=== PATIENT | female | born 1955 | race Caucasian/White ===

== ENCOUNTER 2017-10-12 14:09 | Inpatient (IN) ==
--- NOTE | 2017-10-12 17:23 | Emergency Department Note ---
Disposition Clinical Impression: Chest pain Qualifiers: Chest pain type: unspecified Qualified Code(s): R07.9 - Chest pain, unspecified Disposition: Admitted As Inpatient Condition: Good Referrals: Livia Hale CNP [Primary Care Provider] - Forms: ED Satisfaction Letter Time of Disposition: 18:16 Chest Pain HPI - General Chief Complaint: ED Chest Pain Stated Complaint: chest pain Time Seen by Provider: 10/12/17 17:08 Source: patient Mode of arrival: ambulatory Limitations: no limitations Vital Signs Reviewed: Yes Nursing Notes Reviewed: Yes - History of Present Illness HPI Narrative: 62-year-old with a previous MA 15 years ago or so comes in complaining of some intermittent chest pain. Patient hasn't been evaluated for heart for quite some time. She does have a stent that was placed 15 years ago. Pt complaint: chest pain Onset (ago): day(s) Duration: intermittent Onset: during rest Pain Location: substernal, left chest Severity: moderate Severity scale (1-10): 7 Quality: tightness, aching Pain Radiation: RUE, LUE Improves with: nothing Worsens with: nothing Context: recent illness Associated symptoms: Reports: dyspnea Treatments prior to arrival chest pain: none - Related Data Previous Rx's Medication Instructions Recorded HydrOXYzine 50 mg PO HS #15 tablet 11/16/15 Meclizine [Antivert] 25 mg PO DAILY #15 tablet 11/16/15 Allergies Allergy/AdvReac Type Severity Reaction Status Date / Time morphine Allergy Anaphylaxis Verified 10/12/17 14:36 All systems ED: reviewed and negative except as stated. Constitutional: Denies: fever, chills, weakness, weight change Eyes: Denies: eye pain, eye discharge, vision change ENT ED: Denies: ear pain, throat pain, dental pain, hearing loss, epistaxis, congestion, dysphagia Cardiovascular: Reports: chest pain. Denies: palpitations, dyspnea on exertion , edema, syncope Respiratory: Denies: cough, dyspnea, wheezes, hemoptysis, stridor Gastrointestinal: Denies: abdominal pain, nausea, vomiting, diarrhea, constipation, hematemesis, melena, hematochezia Genitourinary: Denies: dysuria, frequency, hematuria, discharge Musculoskeletal: Denies: back pain, neck pain, arthralgia, myalgia Integumentary: Denies: rash, abrasion, lesions Neurological: Denies: headache, weakness, numbness, paresthesias, confusion, abnormal gait, vertigo Psychiatric: Denies: anxiety, depression, suicidal thoughts, homicidal thoughts , auditory hallucinations, visual hallucinations Endocrine: Denies: fatigue Hematological/Lymphatic: Denies: easy bleeding, easy bruising Allergic/Immunologic: Denies: facial swelling, urticaria Chest Pain PMH - Past Medical History Medical history: Reports: CHF, coronary artery disease, dialysis, myocardial infarction, thyroid disease Psychiatric history: Reports: anxiety BIT TAPPER history: Reports: no BIT TAPPER history - Social History Smoking Status: Never smoker Alcohol use: Reports: none Drug use: Reports: none Physical Exam - General Limitations: no limitations General appearance: alert, in no apparent distress - Head Head exam: atraumatic - Eye Eye exam: Present: normal appearance - ENT ENT exam: normal exam, normal oropharynx, mucous membranes moist - Neck Neck exam: Present: normal inspection, full ROM, trachea midline - Chest Chest inspection: Present: normal inspection, symmetric chest wall rise - Respiratory Respiratory exam: Present: normal lung sounds bilaterally - Cardiovascular Cardiovascular exam: Present: regular rate, normal rhythm, normal heart sounds - Abdominal Exam Abdominal exam: Present: soft, Non-Tender. Absent: tenderness, distention, guarding, rebound, rigidity - Extremities Exam Extremities exam: Present: normal inspection, full ROM. Absent: tenderness, pedal edema - Expanded Lower Extremity Exam Neurovascular/Tendon exam: Absent: motor deficit, sensory deficit, tendon deficit Gait: observed and normal - Back Exam Back exam: Present: normal inspection, full ROM. Absent: tenderness - Neurological Exam Neurological exam: Present: alert, oriented X3 - Psychiatric Psychiatric exam: Present: normal affect, normal mood - Skin Skin exam: Present: warm, dry, intact, normal color Course - Reevaluation(s) Reevaluation #1: 62-year-old comes in with chest pain and has previous stent about 15 years ago. Initial EKG shows nothing acute however her troponin was positive at 0.07. A consultation with cardiology who recommended heparin if no contraindications. Time: 18:50 - Consultations Consultation #1: Discussed with Dr. Multani, opal. Time: 19:07 Vital Signs Temperature 97.9 F 10/12/17 14:36 Pulse Rate 97 10/12/17 14:36 Respiratory Rate 16 10/12/17 14:36 Blood Pressure 132/84 10/12/17 14:36 O2 Sat by Pulse Oximetry 96 10/12/17 14:36 Temperature 97.9 F 10/12/17 14:36 Pulse Rate 83 10/12/17 18:21 Respiratory Rate 16 10/12/17 18:21 Blood Pressure 131/73 10/12/17 18:21 O2 Sat by Pulse Oximetry 97 10/12/17 18:21 Oxygen Delivery Oxygen Delivery Room Air Chest Pain - Lab Data Lab results reviewed: Yes I reviewed the patient's lab results. Result diagrams: 10/12/17 17:17 10/12/17 17:17 Lab Results 10/12/17 10/12/17 10/12/17 Range/Units 17:17 17:17 17:17 WBC 8.1 (4.3-11.1) K/mcL RBC 4.61 (3.82-4.97) M/mcL Hgb 14.1 (11.5-15.4) g/dL Hct 42.4 (35.3-44.9) % MCV 92.0 (83.0-100.0) fL MCH 30.6 (28.0-33.3) pg MCHC 33.3 (31.6-35.5) g/dL RDW 12.7 (11.5-14.5) % Plt Count 228 (140-400) K/mcL MPV 10.4 (9.4-12.4) fL Immature Gran % 0.2 (0-4) % Seg Neutrophils % 61.4 % Lymphocytes % 29.9 % Monocytes % 6.4 % Eosinophils % 1.7 % Basophils % 0.4 % Neutrophils # 5.0 (1.6-8.9) K/mcL Lymphocytes # 2.4 (0.6-4.6) K/mcL Monocytes # 0.5 (0.0-1.3) K/mcL Eosinophils # 0.1 (0.0-0.6) K/mcL Basophils # 0.0 (0.0-0.2) K/mcL PT 11.2 (9.4-12.1) Seconds INR 1.0 APTT 29.1 (26.0-36.0) Seconds Sodium 134 L (136-145) mEq/L Potassium 3.9 (3.5-5.1) mEq/L Chloride 102 (98-107) mEq/L Carbon Dioxide 27 (23-29) mEq/L BUN 11 (8-23) mg/dL Creatinine 0.68 (0.60-1.20) mg/dL Est GFR ( Amer) > 60 (> 60) Est GFR (Non-Af Amer) > 60 (> 60) BUN/Creatinine Ratio 16 (6-26) Glucose 287 H (70-105) mg/dL Calculated Osmolality 288 (280-300) Calcium 9.3 (8.6-10.3) mg/dL Troponin I (< 0.04) ng/mL B-Natriuretic Peptide (Less than 100) pg/mL 10/12/17 10/12/17 Range/Units 17:17 17:17 WBC (4.3-11.1) K/mcL RBC (3.82-4.97) M/mcL Hgb (11.5-15.4) g/dL Hct (35.3-44.9) % MCV (83.0-100.0) fL MCH (28.0-33.3) pg MCHC (31.6-35.5) g/dL RDW (11.5-14.5) % Plt Count (140-400) K/mcL MPV (9.4-12.4) fL Immature Gran % (0-4) % Seg Neutrophils % % Lymphocytes % % Monocytes % % Eosinophils % % Basophils % % Neutrophils # (1.6-8.9) K/mcL Lymphocytes # (0.6-4.6) K/mcL Monocytes # (0.0-1.3) K/mcL Eosinophils # (0.0-0.6) K/mcL Basophils # (0.0-0.2) K/mcL PT (9.4-12.1) Seconds INR APTT (26.0-36.0) Seconds Sodium (136-145) mEq/L Potassium (3.5-5.1) mEq/L Chloride (98-107) mEq/L Carbon Dioxide (23-29) mEq/L BUN (8-23) mg/dL Creatinine (0.60-1.20) mg/dL Est GFR ( Amer) (> 60) Est GFR (Non-Af Amer) (> 60) BUN/Creatinine Ratio (6-26) Glucose (70-105) mg/dL Calculated Osmolality (280-300) Calcium (8.6-10.3) mg/dL Troponin I 0.07 H* (< 0.04) ng/mL B-Natriuretic Peptide 77 (Less than 100) pg/mL - Radiology Data Radiology results reviewed: Yes I reviewed the patient's radiology results. Chest X-Ray 10/12/17 15:01 IMPRESSION: No evidence of acute cardiopulmonary disease. Mild elevation of the right diaphragm most likely chronic, of uncertain etiology. D/ / Wilmar Roper MD / Wilmar Roper MD Interpreting Provider: Wilmar Roper MD - EKG Data EKG attestation: Yes I reviewed and interpreted this EKG. EKG shows normal: sinus rhythm Rate: normal Rhythm: NSR Interpretation: no acute changes Heart Score - Score History: Moderately Suspicious EKG: Non Specific repolarisation Disturbance Age: 45-65 Risk Factors: Equal/Greater than 3 risk factor or history of atherosclerotic disease Troponin: 1-3x normal limit HEART Score Total: 6
[2017-10-12 17:27] LABS: Basophils % 0.4 %; Eosinophils # 0.1 K/mcL (0.0-0.6); Eosinophils % 1.7 %; Hematocrit 42.4 % (35.3-44.9); Hemoglobin 14.1 g/dL (11.5-15.4); Immature Granulocytes % 0.2 % (0-4); Lymphocytes # 2.4 K/mcL (0.6-4.6); Lymphocytes % 29.9 %; Mean Corpuscular HGB Conc 33.3 g/dL (31.6-35.5); Mean Corpuscular Hemoglobin 30.6 pg (28.0-33.3); Mean Platelet Volume 10.4 fL (9.4-12.4); Monocytes # 0.5 K/mcL (0.0-1.3); Monocytes % 6.4 %; Platelet Count 228 K/mcL (140-400); Red Blood Count 4.61 M/mcL (3.82-4.97); Red Cell Distribution Width 12.7 % (11.5-14.5); Segmented Neutrophils % 61.4 %
[2017-10-12 17:41] LABS: Prothrombin Time 11.2 Seconds (9.4-12.1)
[2017-10-12 17:43] LABS: Activated Partial Thrombo Time 29.1 Seconds (26.0-36.0)
[2017-10-12 17:44] LABS: BUN/Creatinine Ratio 16 (6-26); Blood Urea Nitrogen 11 mg/dL (8-23); Calcium 9.3 mg/dL (8.6-10.3); Carbon Dioxide 27 mEq/L (23-29); Chloride 102 mEq/L (98-107); Glucose 287 mg/dL (70-105); Osmolality,Calculated 288 (280-300); Potassium 3.9 mEq/L (3.5-5.1); Sodium 134 mEq/L (136-145); eGFR For African Americans > 60 (> 60); eGFR For Non-African Americans > 60 (> 60)
[2017-10-12] MEDS ORDERED: *HR* Meperidine 25 MG/ML SYRINGE IVP ONE (18:12)
[2017-10-12] MEDS ORDERED: Ondansetron 4 MG/2 ML VIAL IVP ONE (18:14)
[2017-10-12] MEDS ORDERED: *HR* Heparin 5,000 UNIT/ML VIAL IVP PRN (19:06)
[2017-10-12] MEDS ORDERED: *HR* Heparin 5,000 UNIT/ML VIAL IVP ONE ×2 (19:06→19:15)
[2017-10-12] MEDS: Heparin 25,000 UNIT/500 ML D5W 25,000 UNIT/500 ML BAG IVC SCH (19:31)
[2017-10-12] MEDS ORDERED: *HR* Dextrose 50 % in Water (Syg) 50 ML SYRINGE IVP PRN (20:02)
[2017-10-12] MEDS ORDERED: D5% in Water 1,000 ML IVC PRN (20:02)
[2017-10-12] MEDS ORDERED: Dextrose Gel 15 GM/37.5 ML TUBE PO PRN ×2 (20:02)
[2017-10-12] MEDS ORDERED: Naloxone 0.4 MG/ML INJ IVP PRN (20:03)
--- NOTE | 2017-10-12 20:10 | Internal Med History&Physical ---
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 Gonzalez is a 62 year old female who presents with NSTEMI. She has a hx CAD s/p stent either and is loss to follow up with Dr Santa. She experienced CP in the last few days with progressive discomfort today. On and off, pain across the chest, radiating down both arms into the back. Described as burning, stinging in quality. No exacerbation with exertion. Pain lasting for hours. EKG personally reviewed with rate 98, NSR ST-T wave changes XR/XR chest 1V portable IMPRESSION: No evidence of acute cardiopulmonary disease. Mild elevation of the right diaphragm most likely chronic, of uncertain etiology. Past Med Surg Social Fam HX - Past Medical History Medical history: CHF, coronary artery disease, dialysis, myocardial infarction, thyroid disease Psychiatric history: anxiety - Past Surgical History Surgical History: other (stent pci) - Social History Smoking Status: Never smoker Smokeless Tobacco Status: No Alcohol use: none Drug use: none - Additional Family History Additional family history: HTN Internal Medicine - H&P: Meds Aspirin Enteric Coated [Aspirin EC] 81 mg PO DAILY 10/12/17 [History] Dulaglutide [Trulicity] 0.75 mg SQ TU@1200 10/12/17 [History] Escitalopram [Lexapro] 20 mg PO DAILY 10/12/17 [History] Glimepiride [Amaryl] 4 mg PO BID 10/12/17 [History] Insulin Glargine,Hum.rec.anlog [Basaglar Oliikpen U-100] 28 unit SQ 1200 [History] Levothyroxine [Synthroid] 25 mcg PO 0630 10/12/17 [History] Pantoprazole Sodium [Protonix] 40 mg PO DAILY PRN 10/12/17 [History] Simvastatin [Zocor] 10 mg PO HS 10/12/17 [History] clonazePAM [Klonopin] 1 mg PO BID 10/12/17 [History] 3 Allergy/AdvReac Type Severity Reaction Status Date / Time morphine Allergy Anaphylaxis Verified 10/12/17 14:36 All Systems PM: A 10-system review of systems was performed and is negative for pertinent findings except as documented above in the HPI. Review of systems: ROS 14 point review of systems reviewed as best as possible given presentation. Pertinent positive or negative as per HPI or otherwise reviewed as negative - Constitutional Vitals: Temp Pulse Resp BP Pulse Ox 97.9 F 83 16 131/73 97 10/12/17 14:36 10/12/17 18:21 10/12/17 18:21 10/12/17 18:21 10/12/17 18:21 Exam: General - AAO x 3 Psych - Appropriate affect/speech. No agitation Eyes - HARINI. Eye lids intact. No scleral icterus Heart - Sinus. RRR. S1 and S2 present. No added HS/murmurs appreciated. No elevated JVD appreciated. Lung - Adequate air entry b/l, No crackles/wheezes appreciated GI - Soft, non-tender. No hepatosplenomegaly/ascites. BS+ - No CVA/suprapubic tenderness or palpable bladder distension Skin - Intact. No rash/petechiae/ecchymosis. Warm extremities MSK - Joints with normal ROM. No joint swellings Internal Med - H&P Results - Labs CBC & Chem 7: 10/12/17 17:17 10/12/17 17:17
[2017-10-12 20:32] LABS: Hematocrit 41.1 % (35.3-44.9); Hemoglobin 13.6 g/dL (11.5-15.4); Mean Corpuscular HGB Conc 33.1 g/dL (31.6-35.5); Mean Corpuscular Hemoglobin 30.6 pg (28.0-33.3); Mean Corpuscular Volume 92.4 fL (83.0-100.0); Platelet Count 251 K/mcL (140-400); Red Blood Count 4.45 M/mcL (3.82-4.97); Red Cell Distribution Width 12.6 % (11.5-14.5)
[2017-10-12 20:39] LABS: INR 1.1; Prothrombin Time 12.4 Seconds (9.4-12.1)
[2017-10-12 20:59] LABS: Activated Partial Thrombo Time > 360.0 Seconds (26.0-36.0)
[2017-10-12 21:10] LABS: Heparin anti-factor XA UFH 1.16 IU/mL (0.30-0.70)
[2017-10-12] MEDS: Insulin LISPRO 300 UNITS/3 ML VIAL SQ SCH (22:48)
[2017-10-12] MEDS: clonazePAM 1 MG TABLET PO SCH (22:48)
[2017-10-13] MEDS ORDERED: Melatonin 3 MG TABLET PO PRN (01:58)
[2017-10-13 02:12] LABS: Basophils # 0.1 K/mcL (0.0-0.2); Basophils % 0.7 %; Eosinophils # 0.2 K/mcL (0.0-0.6); Eosinophils % 2.4 %; Hematocrit 41.9 % (35.3-44.9); Hemoglobin 13.7 g/dL (11.5-15.4); Immature Granulocytes % 0.3 % (0-4); Lymphocytes # 3.3 K/mcL (0.6-4.6); Lymphocytes % 43.7 %; Mean Corpuscular HGB Conc 32.7 g/dL (31.6-35.5); Mean Corpuscular Volume 91.9 fL (83.0-100.0); Mean Platelet Volume 10.4 fL (9.4-12.4); Monocytes # 0.5 K/mcL (0.0-1.3); Monocytes % 7.2 %; Neutrophils # 3.5 K/mcL (1.6-8.9); Platelet Count 238 K/mcL (140-400); Red Blood Count 4.56 M/mcL (3.82-4.97); Red Cell Distribution Width 12.7 % (11.5-14.5); Segmented Neutrophils % 45.7 %
[2017-10-13 02:27] LABS: BUN/Creatinine Ratio 16 (6-26); Blood Urea Nitrogen 13 mg/dL (8-23); Calcium 9.3 mg/dL (8.6-10.3); Carbon Dioxide 29 mEq/L (23-29); Chloride 102 mEq/L (98-107); Glucose 208 mg/dL (70-105); Osmolality,Calculated 292 (280-300); Potassium 3.8 mEq/L (3.5-5.1); Sodium 138 mEq/L (136-145); eGFR For African Americans > 60 (> 60); eGFR For Non-African Americans > 60 (> 60)
[2017-10-13] MEDS: *HR* Heparin 5,000 UNIT/ML VIAL IVP PRN ×3 (04:20→18:05)
[2017-10-13] MEDS: Insulin LISPRO 300 UNITS/3 ML VIAL SQ SCH ×4 (08:50→21:29)
[2017-10-13] MEDS: Levothyroxine 25 MCG TABLET PO SCH (09:22)
[2017-10-13] MEDS: Aspirin Enteric Coated 81 MG Tablet PO SCH (09:22)
[2017-10-13] MEDS: clonazePAM 1 MG TABLET PO SCH ×2 (09:22→20:20)
--- NOTE | 2017-10-13 11:36 | Cardiology Consult Note ---
Date of Encounter: 10/13/17 Time of Encounter: 09:00 Assessment and Plan (1) NSTEMI (non-ST elevated myocardial infarction) Current Visit: Yes Status: Acute Mild troponin elevation 0.07, 0.07, 0.06. EKG with mild ST depression in the inferior leads. Symptoms and findings concerning for [place]/ NSTEMI. LHC R/B/A discussed. She agrees to proceed. Plan for C sunday. Check TTE. Cardiac rehab consult. Continue heparin gtt. ASA and bb. No statin due to myalgias. (2) CAD (coronary artery disease) Current Visit: Yes Status: Chronic H/o PCI in 2002. Reports undergoing multiple LHC since that time. Last LHC in 2010 showed minimal CAD with patent pRCA stent. EF 65%. Continue asa and bb. Not on statin therapy at home due to myalgias. Qualifiers: Coronary Disease-Associated Artery/Lesion type: [place] artery [place] vs. 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 All questions were answered. Thank you for involving us in the care of your patient. Please call with any questions. History of Present Illness Consult date: 10/13/17 Requesting physician: Holly Vallejo Consult reason: Chest pain Chief complaint: Chest pain History of present illness: Ms. Gonzalez is a 62 year old female with a past medical history of CAD s/p PCI in 2002, DM type II, and HLD who presents with chest pain radiating across her chest. Her pain started three days ago. She was given NTG in the ER with relief of her pain. Denies associated symptoms. She is found to have mildly elevated troponin, 0.07, 0.07, 0.06. Her EKG showed mild ST depression in the inferior leads. Cardiology was consulted for NSTEMI. She is chest pain free on my exam. Reports she is experiencing higher levels of stress at home. Past Med Surg Social Fam HX - Past Medical History Attestation: Yes The following information was validated with the patient. Medical history: CHF, coronary artery disease, diabetes, myocardial infarction, thyroid disease Psychiatric history: anxiety - Past Surgical History Surgical History: cholecystectomy, hysterectomy, thyroidectomy, other - Social History Smoking Status: Never smoker Smokeless Tobacco Status: No Alcohol use: none Drug use: none - Family History Mother Hx Family Cardiac Disorders: Yes Father Hx Family Cancer: Yes Hx Family Endocrine Disorder: Yes Medications and Allergies Aspirin Enteric Coated [Aspirin EC] 81 mg PO DAILY 10/12/17 [History] Dulaglutide [Trulicity] 0.75 mg SQ TU@1200 10/12/17 [History] Escitalopram [Lexapro] 20 mg PO DAILY 10/12/17 [History] Glimepiride [Amaryl] 4 mg PO BID 10/12/17 [History] Insulin Glargine,Hum.rec.anlog [Basaglar Kwikpen U-100] 28 unit SQ 1200 [History] Levothyroxine [Synthroid] 25 mcg PO 0630 10/12/17 [History] Pantoprazole Sodium [Protonix] 40 mg PO DAILY PRN 10/12/17 [History] Simvastatin [Zocor] 10 mg PO HS 10/12/17 [History] clonazePAM [Klonopin] 1 mg PO BID 10/12/17 [History] 3 Allergy/AdvReac Type Severity Reaction Status Date / Time morphine Allergy Anaphylaxis Verified 10/12/17 14:36 All Systems Review: A 10-system review of systems was performed and is negative for pertinent findings except as documented above in the HPI. Physical Examination Vital Signs, Last 4 Hours Pulse Ox 10/13/17 08:31 96 General: Conversant, No Apparent Distress HEENT: Atraumatic, Normocephaly, Mucus Membranes Moist Neck: No JVD, Normal carotid pulses Cardiac: Reg Rate and Rhythm, Normal S1 and S2, No Murmur Lungs: Normal Breath Sounds, No Wheeze, Rales, Rhonchi Neuro: Alert and responsive, No focal deficits noted Abdomen: Soft, Non-Tender Skin: No rashes noted on visualized skin Musculoskeletal: No Chest Wall Tenderness Extremities: No Clubbing, No Cyanosis, No Edema, Normal Pulses Results 10/13/17 01:22 10/13/17 01:22 Lab Results 10/12/17 10/12/17 10/12/17 20:20 20:20 22:00 WBC 8.4 Hgb 13.6 Hct 41.1 Plt Count 251 INR 1.1 APTT > 360.0 H* D Sodium Potassium Chloride Carbon Dioxide BUN Creatinine Glucose Calcium Troponin I 0.07 H* 10/13/17 10/13/17 10/13/17 01:22 01:22 01:22 WBC 7.5 Hgb 13.7 Hct 41.9 Plt Count 238 INR APTT Sodium 138 Potassium 3.8 Chloride 102 Carbon Dioxide 29 BUN 13 Creatinine 0.82 Glucose 208 H Calcium 9.3 Troponin I 0.06 H* 10/13/17 10/13/17 01:22 07:46 WBC Hgb Hct Plt Count INR APTT 46.3 H D 56.0 H Sodium Potassium Chloride Carbon Dioxide BUN Creatinine Glucose Calcium Troponin I - EKG Interpretation EKG results cardiology: personally reviewed Consult Discharge Plan - Plan Referrals: Livia Hale, VINCE [Primary Care Provider] -
[2017-10-13] MEDS: Insulin DETEMIR 100 UNIT/ML X5UNITS SQ SCH (13:40)
[2017-10-13] MEDS: Acetaminophen 325 MG TABLET PO PRN (14:56)
--- NOTE | 2017-10-13 15:53 | Internal Med Progress Note ---
Date of Encounter: 10/13/17 Time of Encounter: 15:51 - Assessment and plan (1) Chest pain Current Visit: Yes Status: Acute Qualifiers: Chest pain type: unspecified Qualified Code(s): R07.9 - Chest pain, unspecified (2) HLD (hyperlipidemia) Current Visit: Yes Status: Acute Assessment and plan: Intolerant of statins Qualifiers: Hyperlipidemia type: pure hypercholesterolemia Qualified Code(s): E78.00 - Pure hypercholesterolemia, unspecified; E78.0 - Pure hypercholesterolemia (3) NSTEMI (non-ST elevated myocardial infarction) Current Visit: Yes Status: Acute Assessment and plan: Mild troponin elevation 0.07, 0.07, 0.06. EKG with mild ST depression in the inferior leads. Symptoms and findings concerning for unstable angina/ NSTEMI. Cardiology discussed the need for a heart catheter on Sunday. She agrees to proceed. Check TTE. Cardiac rehab consult. Continue heparin gtt. ASA and bb. No statin due to myalgias. (4) CAD (coronary artery disease) Current Visit: Yes Status: Chronic Assessment and plan: History of PCI in 2002. Reported undergoing multiple LHC since that time. Last LHC in 2010 showed minimal CAD with patent pRCA stent. EF 65%. Continue asa and bb. Not on statin therapy at home due to myalgias. Qualifiers: Coronary Disease-Associated Artery/Lesion type: [place] artery [place] vs. 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 Her is at the bedside. She is having no further chest pain and feels back to her baseline. No shortness of breath, abdominal pain, fever, chills, sweats, nausea, vomiting, headache, or syncope. She was questioning if she could go home and I explained to her that that is not advisable. She will stay and have an echocardiogram and her cardiac catheter on Sunday. - Constitutional Vitals: Temp Pulse Resp BP Pulse Ox 98.4 F 98 16 121/83 95 10/13/17 15:22 10/13/17 15:22 10/13/17 15:22 10/13/17 15:22 10/13/17 15:22 General appearance: Present: cooperative, A&O X 3, pleasant, no acute distress, answers questions appropriately - Head Head exam: Present: atraumatic, normocephalic - Eye Eye exam: Present: PERRL, conjuntiva pink, sclera anicteric Pupils: Present: PERRL - Neck Neck exam general surgery: Present: supple, trachea midline. Absent: lymphadenopathy - Respiratory Respiratory exam: Present: CTAB. Absent: accessory muscle use, rales, rhonchi, wheezes - Cardiovascular Cardiovascular exam: Present: RRR, +S1, +S2. Absent: diastolic murmur, gallop, rubs, systolic murmur - GI/Abdominal GI/Abdominal exam: Present: normal bowel sounds, soft, no peritoneal signs. Absent: distended, tenderness - Extremities Exam Extremities exam: Present: warm, radial pulses palpable and symmetrical. Absent : calf tenderness, cyanotic, pedal edema - Neurological Exam Neurological exam: Present: CN II-XII intact, oriented X3, no focal deficits. Absent: pronater drift, facial droop, speech deficit - Skin Skin exam: Present: dry, intact, warm Internal Medicine: Result - Labs CBC & Chem 7: 10/13/17 01:22 10/13/17 01:22 - ABG Interpretation ABG results: PT/INR, D-dimer PT 12.4 Seconds (9.4-12.1) H 10/12/17 20:20 Consult Discharge Plan - Plan Referrals: Livia Hale, [facility]PRENT[facility] [Primary Care Provider] -
[2017-10-13] MEDS ORDERED: *HR* Meperidine 25 MG/ML SYRINGE IVP ONE (19:59)
[2017-10-13] MEDS: Heparin 25,000 UNIT/500 ML D5W 25,000 UNIT/500 ML BAG IVC SCH (21:35)
[2017-10-14 00:49] LABS: Basophils # 0.1 K/mcL (0.0-0.2); Basophils % 0.7 %; Eosinophils # 0.2 K/mcL (0.0-0.6); Eosinophils % 2.8 %; Hematocrit 39.9 % (35.3-44.9); Immature Granulocytes % 0.1 % (0-4); Lymphocytes # 3.6 K/mcL (0.6-4.6); Lymphocytes % 48.3 %; Mean Corpuscular HGB Conc 32.6 g/dL (31.6-35.5); Mean Corpuscular Hemoglobin 30.2 pg (28.0-33.3); Mean Corpuscular Volume 92.6 fL (83.0-100.0); Mean Platelet Volume 10.3 fL (9.4-12.4); Monocytes # 0.5 K/mcL (0.0-1.3); Monocytes % 6.1 %; Neutrophils # 3.2 K/mcL (1.6-8.9); Platelet Count 219 K/mcL (140-400); Red Blood Count 4.31 M/mcL (3.82-4.97); Red Cell Distribution Width 12.4 % (11.5-14.5)
[2017-10-14 01:10] LABS: BUN/Creatinine Ratio 16 (6-26); Blood Urea Nitrogen 14 mg/dL (8-23); Calcium 9.1 mg/dL (8.6-10.3); Carbon Dioxide 28 mEq/L (23-29); Chloride 100 mEq/L (98-107); Glucose 212 mg/dL (70-105); Osmolality,Calculated 283 (280-300); Potassium 3.7 mEq/L (3.5-5.1); Sodium 133 mEq/L (136-145); eGFR For African Americans > 60 (> 60); eGFR For Non-African Americans > 60 (> 60)
[2017-10-14] MEDS: Levothyroxine 25 MCG TABLET PO SCH (05:35)
[2017-10-14] MEDS: clonazePAM 1 MG TABLET PO SCH ×2 (08:56→21:48)
[2017-10-14] MEDS: Aspirin Enteric Coated 81 MG Tablet PO SCH (08:56)
[2017-10-14] MEDS: *HR* Heparin 5,000 UNIT/ML VIAL IVP PRN ×2 (09:03→21:48)
[2017-10-14] MEDS: Insulin LISPRO 300 UNITS/3 ML VIAL SQ SCH ×4 (09:04→21:49)
--- NOTE | 2017-10-14 09:34 | Internal Med Progress Note ---
Date of Encounter: 10/14/17 Time of Encounter: 09:32 - Assessment and plan (1) NSTEMI (non-ST elevated myocardial infarction) Current Visit: Yes Status: Acute Assessment and plan: Mild troponin elevation 0.07, 0.07, 0.06. EKG with mild ST depression in the inferior leads Symptoms and findings concerning for unstable angina/ NSTEMI. Cardiology discussed the need for a heart catheter on Sunday. She agrees to proceed. Check TTE. Cardiac rehab consult. Continue heparin gtt. ASA and bb. No statin due to myalgias. (2) Chest pain Current Visit: Yes Status: Acute Assessment and plan: No further chest pain see plan per cardiology Qualifiers: Chest pain type: unspecified Qualified Code(s): R07.9 - Chest pain, unspecified (3) HLD (hyperlipidemia) Current Visit: Yes Status: Acute Assessment and plan: Intolerant of statin therapy Qualifiers: Hyperlipidemia type: pure hypercholesterolemia Qualified Code(s): E78.00 - Pure hypercholesterolemia, unspecified; E78.0 - Pure hypercholesterolemia (4) CAD (coronary artery disease) Current Visit: Yes Status: Chronic Assessment and plan: History of PCI in 2002. She reported undergoing multiple LHC since that time. Last LHC in 2010 showed minimal CAD with patent pRCA stent. EF 65%. Continue asa and bb. Not on statin therapy at home due to myalgias. Qualifiers: Coronary Disease-Associated Artery/Lesion type: [place] artery [place] vs. transplanted heart: [place] heart Associated angina: without angina Qualified Code(s): I25.10 - Atherosclerotic heart disease of [place] coronary artery without angina pectoris (5) Diabetes mellitus Current Visit: Yes Status: Chronic Assessment and plan: hold sunlfonylurea, add sliding scale insulin with Accu-Cheks, continue lantus Qualifiers: Diabetes mellitus type: type 2 Diabetes mellitus complication status: without complication Diabetes mellitus half-way insulin use: with health/safety job titles use Qualified Code(s): E11.9 - Type 2 diabetes mellitus without complications ; Z79.4 - correction (current) use of insulin; Z79.4 - product safety compliance leader (current) use of insulin; Z79.4 - correction (current) use of insulin; Z79.4 - correction ( current) use of insulin (6) DVT prophylaxis Current Visit: Yes Status: Acute Assessment and plan: Heparin drip continues per cardiology - Subjective Interval history: Patient is lying in bed in no acute distress. Her is at the bedside. She is having no further chest pain and feels back to her baseline. No shortness of breath, abdominal pain, fever, chills, sweats, nausea, vomiting, headache, or syncope. She will stay and have an echocardiogram and her cardiac cath on Sunday. - Constitutional Vitals: Temp Pulse Resp BP Pulse Ox 98.1 F 70 16 115/67 94 10/14/17 07:33 10/14/17 07:33 10/14/17 07:33 10/14/17 07:33 10/14/17 07:33 General appearance: Present: cooperative, A&O X 3, pleasant, no acute distress, answers questions appropriately - Head Head exam: Present: atraumatic, normocephalic - Eye Eye exam: Present: PERRL, conjuntiva pink, sclera anicteric Pupils: Present: PERRL - Neck Neck exam general surgery: Present: supple, trachea midline. Absent: lymphadenopathy - Respiratory Respiratory exam: Present: CTAB. Absent: accessory muscle use, rales, rhonchi, wheezes - Cardiovascular Cardiovascular exam: Present: RRR, +S1, +S2. Absent: diastolic murmur, gallop, rubs, systolic murmur - GI/Abdominal GI/Abdominal exam: Present: normal bowel sounds, soft, no peritoneal signs. Absent: distended, tenderness - Extremities Exam Extremities exam: Present: warm, radial pulses palpable and symmetrical. Absent : calf tenderness, cyanotic, pedal edema - Neurological Exam Neurological exam: Present: CN II-XII intact, oriented X3, no focal deficits. Absent: pronater drift, facial droop, speech deficit - Skin Skin exam: Present: dry, intact, warm Internal Medicine: Result - Labs CBC & Chem 7: 10/14/17 00:20 10/14/17 00:20 Labs: Short CBC 10/14/17 Range/Units 00:20 WBC 7.5 (4.3-11.1) K/mcL Hgb 13.0 (11.5-15.4) g/dL Hct 39.9 (35.3-44.9) % Plt Count 219 (140-400) K/mcL Neutrophils # 3.2 (1.6-8.9) K/mcL BMP 10/14/17 00:20 Sodium 133 L Potassium 3.7 Chloride 100 Carbon Dioxide 28 BUN 14 Creatinine 0.90 Glucose 212 H Calcium 9.1 - ABG Interpretation ABG results: PT/INR, D-dimer PT 12.4 Seconds (9.4-12.1) H 10/12/17 20:20 Consult Discharge Plan - Plan Referrals: Livia Hale, BIOLOGICAL SCIENCE TECHNICIAN FISH [Primary Care Provider] -
[2017-10-14] MEDS: Heparin 25,000 UNIT/500 ML D5W 25,000 UNIT/500 ML BAG IVC SCH (11:13)
--- NOTE | 2017-10-14 11:14 | Cardiology Progress Note ---
Date of Encounter: 10/14/17 Time of Encounter: 10:15 Assessment and Plan (1) NSTEMI (non-ST elevated myocardial infarction) Current Visit: Yes Status: Acute Mild troponin elevation 0.07, 0.07, 0.06. EKG with mild ST depression in the inferior leads. Symptoms and findings concerning for [place]/ NSTEMI. LHC R/B/A discussed. She agrees to proceed. Plan for [facility] sunday. Check TTE. Cardiac rehab consult. Continue heparin gtt. ASA and bb. No statin due to myalgias. (2) CAD (coronary artery disease) Current Visit: Yes Status: Chronic H/o PCI in 2002. Reports undergoing multiple LHC since that time. Last LHC in 2010 showed minimal CAD with patent pRCA stent. EF 65%. Continue asa and bb. Not on statin therapy at home due to myalgias. Qualifiers: Coronary Disease-Associated Artery/Lesion type: [place] artery [place] vs. transplanted heart: [place] heart Associated angina: without angina Qualified Code(s): I25.10 - Atherosclerotic heart disease of [place] coronary artery without angina pectoris (3) Diabetes mellitus Current Visit: Yes Status: Chronic Qualifiers: Diabetes mellitus type: type 2 Diabetes mellitus complication status: without complication Diabetes mellitus care home insulin use: with terminal worker use Qualified Code(s): E11.9 - Type 2 diabetes mellitus without complications ; Z79.4 - exterminator helper termite (current) use of insulin; Z79.4 - intermediate (current) use of insulin; Z79.4 - exterminator helper termite (current) use of insulin; Z79.4 - exterminator helper termite ( current) use of insulin (4) HLD (hyperlipidemia) Current Visit: Yes Status: Acute Qualifiers: Hyperlipidemia type: pure hypercholesterolemia Qualified Code(s): E78.00 - Pure hypercholesterolemia, unspecified; E78.0 - Pure hypercholesterolemia Discussion w patient/family: The assessment and plan as outlined above was discussed with the patient and/or family members who expressed understanding and agreement. All questions were answered. Thank you for involving us in the care of your patient. Please call with any questions. Subjective Principal diagnosis: NSTEMI Interval history: Denies recurrent chest pain. No questions. Objective Vital Signs, Last 4 Hours Temp Pulse Resp BP Pulse Ox 10/14/17 07:33 98.1 F 70 16 115/67 94 General: Conversant, No Apparent Distress HEENT: Atraumatic, Normocephaly, Mucus Membranes Moist Neck: No JVD, Normal carotid pulses Cardiac: Reg Rate and Rhythm, Normal S1 and S2, No Murmur Lungs: Normal Breath Sounds, No Wheeze, Rales, Rhonchi Neuro: Alert and responsive, No focal deficits noted Abdomen: Soft, Non-Tender Skin: No rashes noted on visualized skin Musculoskeletal: No Chest Wall Tenderness Extremities: No Clubbing, No Cyanosis, No Edema, Normal Pulses Results 10/14/17 00:20 10/14/17 00:20 Lab Results 10/13/17 10/14/17 10/14/17 16:19 00:20 00:20 WBC 7.5 Hgb 13.0 Hct 39.9 Plt Count 219 APTT 54.0 H Sodium 133 L Potassium 3.7 Chloride 100 Carbon Dioxide 28 BUN 14 Creatinine 0.90 Glucose 212 H Calcium 9.1 10/14/17 10/14/17 00:20 07:03 WBC Hgb Hct Plt Count APTT 66.5 H 56.6 H Sodium Potassium Chloride Carbon Dioxide BUN Creatinine Glucose Calcium - Imaging and Cardiology Echo: pending - EKG Interpretation EKG results cardiology: personally reviewed Consult Discharge Plan - Plan Referrals: Livia Hale, VINCE [Primary Care Provider] -
[2017-10-14] MEDS: Insulin DETEMIR 100 UNIT/ML X5UNITS SQ SCH (13:14)
[2017-10-14] MEDS: Nitroglycerin 0.4 MG TAB.SUBL SL PRN ×2 (19:15→22:06)
[2017-10-14] MEDS: Acetaminophen 325 MG TABLET PO PRN (22:06)
[2017-10-15] MEDS: Levothyroxine 25 MCG TABLET PO SCH (04:31)
--- NOTE | 2017-10-15 07:49 | Electrocardiograph Report ---
[address] [place] [address] Test Date: 2017-10-14 Pat Name: Tray Gonzalez Department: 113 Room: 3B Gender: F Pageant Director: [id number] : 1955 Requested By: Palmira Rivas Order Number: [id number] Reading MD: Jair Bates MD Measurements Intervals [place] Rate: 80 P: 16 MO: 175 QRS: -15 QRSD: 98 T: -17 QT: 355 QTc: 391 Interpretive Statements SINUS RHYTHM MINIMAL VOLTAGE CRITERIA FOR LVH, CONSIDER NORMAL VARIANT Poor R wave progression Electronically Signed On 10-15-2017 7:47:41 EST by Jair Bates MD
[2017-10-15] MEDS: Aspirin Enteric Coated 81 MG Tablet PO SCH (08:12)
[2017-10-15] MEDS: clonazePAM 1 MG TABLET PO SCH ×2 (08:12→21:17)
[2017-10-15] MEDS: Insulin LISPRO 300 UNITS/3 ML VIAL SQ SCH ×4 (08:12→21:18)
[2017-10-15] MEDS ORDERED: 0.9 % Sodium Chloride 1,000 ML ONE ×2 (12:14→12:27)
[2017-10-15] MEDS ORDERED: ISOVUE-370 200 ML INFUS..BTL IV ONE (12:14)
[2017-10-15] MEDS ORDERED: *HR* Heparin 10,000 UNIT/10 ML VIAL ONE (12:14)
[2017-10-15] MEDS ORDERED: Nitroglycerin 1,000 MCG/10 ML VIAL IV ONE (12:14)
[2017-10-15] MEDS ORDERED: Heparin 1,000 UNITS/500 mL 500 ML ONE (12:14)
[2017-10-15] MEDS ORDERED: *HR* Midazolam HCl 2 MG/2 ML VIAL ONE (12:25)
--- NOTE | 2017-10-15 12:38 | Pre-Sedation Evaluation ---
Pre-sedation evaluation - Pre-sedation checklist Date of procedure: 10/15/17 Procedure: LHC Recent Vitals: Last Vital Signs Temp 97.9 F 10/15/17 07:33 Pulse 66 10/15/17 07:33 Resp 15 10/15/17 07:33 BP 120/78 10/15/17 07:33 Pulse Ox 94 10/15/17 07:33 ASA Classification *see protocol: CLASS II-Mild systemic disease Plan of Care: Pt appropriate candidate for procedure/moderate/conscious sedation
--- NOTE | 2017-10-15 13:20 | Invasive Diagnostic Lab Proc ---
Name: Tray Gonzalez Date of Study: 10/15/2017 Date: 1955 Ht: 63.0in Medical Record#: [id number] Age: 62 Wt: 167.55lb Gender: Female BSA: 1.79 Order #: [id number] BMI: 29.69 Physicians Procedure Physician: Juan Carlos Livingston MD Referring MD: Referring MD: Staff Name Position Time In RichConnie mahoney RN Monitor 12:26 PM Gray Valderrama RN Electrologist 12:26 PM Ya Lawson RT Scrub 12:26 PM Indications Indication Non-Stemi Procedures Performed Procedure L HRT ARTERY/VENTRICLE ANGIO Pre-Procedure Checklist Informed consent is complete signed and on chart. H&P is on chart. ID band is on and ID verified with patient. Patient NPO for procedure The procedure was described for the patient and questions were answered. ECG is on chart. Plan of Care Patient will tolerate the procedure without complications. Adequate level of comfort will be maintained. Hemodynamics will remain stable Patient will recover from procedure without complications. Respiratory function will be maintained. Cardiac rhythm will remain stable. Patient temperature will be maintained. Patient and/or family have verbalized understanding of the procedure. Patient Education Chief Complaint/Reason for Test: Cardiac Cath Developmental Category: Adult (18-64 years) Developmentally Appropriate for Age: Yes Learning Barriers: None Education Needs: Procedure Education Method: Verbal Information Taught: Cardiac Cath Educational Evaluation: Able to repeat information Intravenous Access Time IV Size Location DC'd Fluid/Drip Rate Units RN 20g 1 /" Patent On Arrival 0.9NaCl ml/hr Allergies HYPERSENSITIVE TO MORPHINE morphine Vital Signs Time BP (mmHg) HR (bpm) O2 Sat. RR (bpm) LOC 12:27 PM / % 5 = Fully awake and oriented or at pre-proc level 12:35 PM / % 5 = Fully awake and oriented or at pre-proc level 12:35 PM / % 4 = Oriented but drowsy 12:30 PM 140 / 76 70 91 % 17 12:34 PM 139 / 54 63 96 % 13 12:40 PM 145 / 69 65 99 % 9 12:44 PM 163 / 74 62 97 % 15 12:49 PM 171 / 89 65 97 % 8 12:55 PM 184 / 85 70 95 % 16 12:59 PM 182 / 88 71 97 % 19 12:50 PM / % 4 = Oriented but drowsy Procedural Medications Time Medication Dose Units Method Given By 12:31 PM Versed 1 mg Intravenous Gray Valderrama RN 12:42 PM Oxygen 2 L/min nasal cannula Gray Valderrama RN 12:43 PM Versed 1 mg Intravenous Gray Valderrama RN 12:43 PM Lidocaine 2% 10 ml Subcutaneous Juan Carlos Livingston MD 12:51 PM Nitroglycerin 100 mcg Intracoronary Augustus Livingston MD ASA Classification: CLASS II- Mild systemic disease (i.e. well-controlled diabetes, hypertension, asthma, cigarette smoking) Jomar Score Preprocedure Postprocedure Activity 2- Moves 4 extremities sustained head lift Activity 2- Moves 4 extremities sustained head lift Circulation 2- SBP +/= 20 points of pre-anesthetic level Circulation 2- SBP +/= 20 points of pre-anesthetic level Consciousness 2- Awake and alert oriented x 3 Consciousness 2- Awake and alert oriented x 3 O2 Saturation 2- Able to maintain O2 satruation of 92% on room air O2 Saturation 2- Able to maintain O2 satruation of 92% on room air Respiratory 2- Able to deep breathe and cough well Respiratory 2- Able to deep breathe and cough well Total Score 10 Total Score 10 Contrast Agent: Isovue Diagnostic Contrast: 63 ml Total Contrast: 63 ml Fluoro Dose: 217 mGy Procedure Log Time Note Enter By 12: PM Pt arrived to slab depiler operator 2 at 12[facility]26 [facility] 12[facility]26 PM Connie Oneil RN Position: Monitor Time in: : [facility] 12: PM Gray Valderrama RN Position: Time in: [facility] 12: PM Ya Lawson Position: Scrub Time in: [facility] 12:26 PM Patient charges- Angio tray pack, Navilyst 3mm J, Pulse Oximetry and ACIST tubing and transducer kkallner 12:26 PM Case Delayed No kkallner 12: PM Hair removed from procedure site in procedure lab using clippers. Bilateral groin & Rt wrist prepped with Chloraprep by Ya Lawson, then patient was draped. Skin intact. kkallner 12: PM Jun paged/called 12:. [facility] PM Physicesthela responded and notified patient is ready 12: 12: PM Physician arrived 12:[facility] 12: PM Meet and greet completed [facility] 12: PM Sign in performed according to hospital policy. kk 12: PM Procedure start : PM Time: : Patient comfortable and pain free: Yes [facility]: PM Time: 12:LOC: 5 = Fully awake and oriented or at pre-proc level [facility] 12: PM Clinical Presentation: Non-STEMI [facility] 12: PM CathStat 12: PM Case Start 12: PM Vitals capture started with the following parameters, Patient=Adult, Interval=5 min, Initial Bikeufqj=592 mmHg, Deflation Rate=5 mmHg, Cuff placed on Right Arm 12:30 PM HR=70 bpm, TQRC=408/76 mmhg, SpO2=91.0 %, Resp=17 B/min 12: PM Time: 12: Oxygen on at 2 L/min per nasal cannula by Gray [facility] 12: PM Time: 12: Versed 1 mg Intravenous Given by Gray Valderrama RN [facility] 12:34 PM HR=63 bpm, QYIC=747/54 mmhg, SpO2=96.0 %, Resp=13 B/min 12:34 PM Recorded ECG: HR=64 Condition=Condition 1 12:35 PM Time: 12:35 Patient comfortable and pain free: Yes cathimaru 12:35 PM Time: 12:35LOC: 5 = Fully awake and oriented or at pre-proc level [facility] 12:37 PM Pressure channel 1 zeroed. 12:40 PM HR=65 bpm, WTOI=920/69 mmhg, SpO2=99.0 %, Resp=9 B/min 12:42 PM ASA Class CLASS II- Mild systemic disease (i.e. well-controlled diabetes, hypertension, asthma, cigarette smoking) [facility] 12:42 PM Time out performed according to hospital policy 12:43 PM Time: 12:43 Versed 1 mg Intravenous Given by Gray Valderrama RN 12:43 PM Time: 12:43 10 ml Lidocaine 2% to right groin Subcutaneous Given by MD cathi Diazmaru 12:44 PM HR=62 bpm, TBPC=374/74 mmhg, SpO2=97.0 %, Resp=15 B/min, Comment=NSR 12:45 PM Micro-Introducer Kit utilized for sheath placement [facility] 12:46 PM 4ml contrast delivered via hand injection to right groing to confirm sheath placement per Dr. Livingston. [facility] 12:46 PM Access obtained by percutaneous puncture. 6Fr 10cm Terumo [place] sheath placed in right Femoral artery. [id number] [facility] 12:47 PM 0.035 145cm Navilyst 3mmJ wire [id number] [facility] 12:47 PM 5Fr FR 4 catheter inserted over the wire [facility] 12:47 PM Wire removed [facility] 12:48 PM Recorded Pressure: Ao, HR=67, Condition=Condition 1 (Aorta) Ao 129/74/97 12:48 PM RCA angiography performed in multiple views. [facility] 12:49 PM Catheter removed [facility] 12:49 PM 5Fr FL 4 catheter inserted over the wire [facility] 12:49 PM HR=65 bpm, TKFG=105/89 mmhg, SpO2=97.0 %, Resp=8 B/min, Comment=NSR 12:50 PM LCA angiography performed in multiple views. [facility] 12:50 PM Recorded Pressure: Ao, HR=61, Condition=Condition 1 (Aorta) Ao 110/65/84 12:50 PM Time: 12:35LOC: 4 = Oriented but drowsy [facility] 12:50 PM Time: 12:35 Patient comfortable and pain free: Yes [facility] 12:51 PM Time: 12:51 Nitroglycerin 100 mcg Intracoronary Given by Augustus Livingston MD [facility] 12:55 PM HR=70 bpm, KEXL=662/85 mmhg, SpO2=95.0 %, Resp=16 B/min, Comment=NSR 12:55 PM Catheter removed [facility] 12:56 PM 5Fr Pigtail catheter inserted over the wire [facility] 12:56 PM Recorded Pressure: LV, HR=76, Condition=Condition 1 (Left Ventricle) LV 133/7/9 12:57 PM Recorded Pressure: LV, Ao, HR=75, Condition=Condition 1 (Left Ventricle) LV 126/3/7, (Aorta) Ao 127/74/97 12:57 PM Catheter selectively placed in left ventricle tsoummers 12:57 PM Catheter removed tsoummers 12:57 PM Conversation between Interventionalist and CT Surgeon. tsoummers 12:58 PM Procedure completed at 12:58 tsoummers 12:59 PM HR=71 bpm, YCMD=269/88 mmhg, SpO2=97.0 %, Resp=19 B/min, Comment=NSR 12:59 PM Sign out completed: Radiation Dose 216.79 mGy Fluoro Time: 2.5 Isovue 370 - 200ml contrast 63 ml given by Juan Carlos Livingston MD. Complications: NoneCardiac Rehab Consult needed: NoConfirmed administered medications: Yes tsoummers 01:00 PM Isovue 370 - 200ml,1 Bottle(s) used. tsoummers 01:00 PM Estimated Blood Loss: less than 20cc tsoummers 01:00 PM Post ECG NSR tsoummers 01:00 PM Post Blood Pressure 182/88 tsoummers 01:00 PM Information taught Cardiac Cath tsoummers 01:00 PM Education needs Procedure, Plan of Care, and Responsibilities of Patient in Care tsoummers 01:00 PM Learning barriers :None tsoummers 01:00 PM Education Methods Verbal tsoummers 01:00 PM Education evaluation Able to repeat information tsoummers 01:01 PM Site status No bleeding/hematoma - Rt Groin as reported by Ya Lawson RT at 13:01 tsoummers 01:02 PM Arterial sheath pulled, Angio-seal closure device used and was Successful [id number] S/N. tsoummers 01:02 PM Opsite applied tsoummers 01:02 PM Plavix, Effient or Brilinta given No tsoummers 01:02 PM Delay to floor No tsoummers 01:02 PM Family placed in consult room. tsoummers 01:02 PM Complications: None tsoummers 01:02 PM Fluoro Time: 2.5 tsoummers 01:02 PM Isovue 370 - 200ml contrast 63 ml given by Juan Carlos Livingston MD. tsoummers 01:02 PM Radiation Dose 216.79 mGy tsoummers 01:[address] Castaneda. tsoummers 01:05 PM Time: 12:50 Patient comfortable and pain free: Yes tsoummers 01:05 PM Time: 12:50LOC: 4 = Oriented but drowsy tsoummers 01:06 PM Coronary Dominance: right tsoummers 01:07 PM Report given to Marc HARTMANN Pt taken to 3B Room #36. 13:07 tsoummers 01:07 PM Patient out of room: 13:07 tsoummers 01:08 PM Lesion found in Mid RCA. Pre Stenosis: 100 Pre ROSA Flow: 0: No Flow/No perfusion tsoummers 01:08 PM Lesion found in Proximal LAD. Pre Stenosis: 70 Pre ROSA Flow: tsoummers 01:08 PM Lesion found in Distal Circumflex. Pre Stenosis: 70 Pre ROSA Flow: tsoummers 01:09 PM Lesion found in 1st Marginal. Pre Stenosis: 100 Pre ROSA Flow: tsoummers 01:09 PM Right Coronary, Right Posterior Descending Arteries with Right Posterolateral and Acute Marginal branches with 100 % stenosis. If graft is supplying this area, 0 % stenosis tsoummers 01:09 PM Proximal Left Anterior Descending Coronary Artery with 70% stenosis. If graft is supplying this territory, 0 % stenosis. tsoummers 01:09 PM Circumflex, Obtuse Marginal, Left Posterior Descending, and Left Posterolateral Coronary Arteries with 100 % stenosis. If graft is supplying this area, 0 % stenosis tsoummers Complications Complication None Hemodynamics Pressures Site Systolic/A Wave Diastolic/V Wave Mean AO 129 74 97 AO 110 65 84 LV 133 7 9 LV 126 3 7 AO 127 74 97 Post Procedure Information Blood Pressure: 182/88 mmHg Rhythm: NSR Post procedural instructions were given Surgery consult for CABG Closure Device Time Device Success/Fail 10/15/2017 1:02:00 PM Angio-Seal VIP Successful Site Checks Time Location Status Staff Sheath In? Note 01:01 PM Rt Groin No bleeding/hematoma Ya Lawson RT Pulses Time Site Pre-Procedure Post-Procedure Note Bilateral DP & PT 2+ Bilateral radial 2+ Updated by Connie Oneil RN on 10/15/2017 1:13:46 PM electronically signed on 10/15/2017 1:14:26 PM with status of Final
--- NOTE | 2017-10-15 13:28 | Invasive Diagnostic Lab Proc ---
Name: Tray Gonzalez Date of Study: 10/15/2017 Date: 1955 Ht: 63.0in Medical Record#: [id number] Age: 62 Wt: 167.55lb Gender: Female BSA: 1.79 Order #: [id number] BMI: 29.69 Physicians Procedure Physician: Juan Carlos Livingston MD Referring MD: Referring MD: Staff Name Position [facility] Monitor 12:26 PM Gray Valderrama RN 12:26 PM Ya Lawson RT 12:26 PM Indications Indication Non-Stemi Procedures Performed Procedure L HRT ARTERY/VENTRICLE ANGIO Pre-Procedure Checklist Informed consent is complete signed and on chart. H&P is on chart. ID band is on and ID verified with patient. Patient NPO for procedure The procedure was described for the patient and questions were answered. ECG is on chart. Plan of Care Patient will tolerate the procedure without complications. Adequate level of comfort will be maintained. Hemodynamics will remain stable Patient will recover from procedure without complications. Respiratory function will be maintained. Cardiac rhythm will remain stable. Patient temperature will be maintained. Patient and/or family have verbalized understanding of the procedure. Patient Education Chief Complaint/Reason for Test: Cardiac Cath Developmental Category: Adult (18-64 years) Developmentally Appropriate for Age: Yes Learning Barriers: None Education Needs: Procedure Education Method: Verbal Information Taught: Cardiac Cath Educational Evaluation: Able to repeat information Intravenous Access Time IV Size Location DC'd Fluid/Drip Rate Units RN 20g 1 /" Patent On Arrival 0.9NaCl ml/hr Allergies HYPERSENSITIVE TO MORPHINE morphine Vital Signs Time BP (mmHg) HR (bpm) O2 Sat. RR (bpm) LOC 12:27 PM / % 5 = Fully awake and oriented or at pre-proc level 12:35 PM / % 5 = Fully awake and oriented or at pre-proc level 12:35 PM / % 4 = Oriented but drowsy 12:30 PM 140 / 76 70 91 % 17 12:34 PM 139 / 54 63 96 % 13 12:40 PM 145 / 69 65 99 % 9 12:44 PM 163 / 74 62 97 % 15 12:49 PM 171 / 89 65 97 % 8 12:55 PM 184 / 85 70 95 % 16 12:59 PM 182 / 88 71 97 % 19 12:50 PM / % 4 = Oriented but drowsy Procedural Medications Time Medication Dose Units Method Given By 12:31 PM Versed 1 mg Intravenous Gray Valderrama RN 12:42 PM Oxygen 2 L/min nasal cannula Gray Valderrama RN 12:43 PM Versed 1 mg Intravenous Gray Valderrama RN 12:43 PM Lidocaine 2% 10 ml Subcutaneous Juan Carlos Livingston MD 12:51 PM Nitroglycerin 100 mcg Intracoronary Augustus Livingston MD ASA Classification: CLASS II- Mild systemic disease (i.e. well-controlled diabetes, hypertension, asthma, cigarette smoking) Jomar Score Preprocedure Postprocedure Activity 2- Moves 4 extremities sustained head lift Activity 2- Moves 4 extremities sustained head lift Circulation 2- SBP +/= 20 points of pre-anesthetic level Circulation 2- SBP +/= 20 points of pre-anesthetic level Consciousness 2- Awake and alert oriented x 3 Consciousness 2- Awake and alert oriented x 3 O2 Saturation 2- Able to maintain O2 satruation of 92% on room air O2 Saturation 2- Able to maintain O2 satruation of 92% on room air Respiratory 2- Able to deep breathe and cough well Respiratory 2- Able to deep breathe and cough well Total Score 10 Total Score 10 Contrast Agent: Isovue Diagnostic Contrast: 63 ml Total Contrast: 63 ml Fluoro Dose: 217 mGy Procedure Log Time Note Enter By 12: PM Pt arrived to dental laboratory supervisor 2 at 12:26 [email or web address] 12:26 PM Connie Oneil RN Position: Monitor Time in: : [email or web address] 12: PM Gray Valderrama RN Position: [facility] PM Ya Lawson Position: Scrub Time in: : [email or web address] 12:26 PM Patient charges- Angio tray pack, Navilyst 3mm J, Pulse Oximetry and ACIST tubing and transducer kkallner 12: PM Case Delayed No kkallner 12: PM Hair removed from procedure site in procedure lab using clippers. Bilateral groin & Rt wrist prepped with Chloraprep by Ya Lawson, then patient was draped. Skin intact. [email or web address] 12: PM Physicesthela paged/called 12:. [email or web address] 12: PM Physicesthela responded and notified patient is ready 12:26 kkallner 12: PM Physician arrived :[facility] 12: PM Meet and greet completed 12: PM Sign in performed according to hospital policy. 12: PM Procedure start : PM Time: 12: Patient comfortable and pain free: Yes [facility]: PM Time: 12:LOC: 5 = Fully awake and oriented or at pre-proc level [facility] 12: PM Clinical Presentation: [facility]-STEM[facility] 12: PM CathStat 12: PM Case Start 12: PM Vitals capture started with the following parameters, Patient=Adult, Interval=5 min, Initial Wxjxcvfy=787 mmHg, Deflation Rate=5 mmHg, Cuff placed on Right Arm 12:30 PM HR=70 bpm, RHPX=284/76 mmhg, SpO2=91.0 %, Resp=17 B/min 12: PM Time: 12: Oxygen on at 2 L/min per nasal cannula by [facility]: PM Time: 12: Versed 1 mg Intravenous Given by Gray [facility]derr[facility] 12:34 PM HR=63 bpm, HVHS=214/54 mmhg, SpO2=96.0 %, Resp=13 B/min 12:34 PM Recorded ECG: HR=64 Condition=Condition 1 12:35 PM Time: 12:35 Patient comfortable and pain free: Yes cathimaru 12:35 PM Time: 12:35LOC: 5 = Fully awake and oriented or at pre-proc level [facility] 12:37 PM Pressure channel 1 zeroed. 12:40 PM HR=65 bpm, EOQY=693/69 mmhg, SpO2=99.0 %, Resp=9 B/min 12:42 PM ASA Class CLASS II- Mild systemic disease (i.e. well-controlled diabetes, hypertension, asthma, cigarette smoking) cathimaru 12:42 PM Time out performed according to hospital policy 12:43 PM Time: 12:43 Versed 1 mg Intravenous Given by Gray Valderrama RN 12:43 PM Time: 12:43 10 ml Lidocaine 2% to right groin Subcutaneous Given by MD rajesh Diaz 12:44 PM HR=62 bpm, GWBN=471/74 mmhg, SpO2=97.0 %, Resp=15 B/min, Comment=NSR 12:45 PM Micro-Introducer Kit utilized for sheath placement [facility] 12:46 PM 4ml contrast delivered via hand injection to right groing to confirm sheath placement per Dr. Livingston. [facility] 12:46 PM Access obtained by percutaneous puncture. 6Fr 10cm Terumo [place] sheath placed in right Femoral artery. [id number] [facility] 12:47 PM 0.035 145cm Navilyst 3mmJ wire [id number] [facility] 12:47 PM 5Fr FR 4 catheter inserted over the wire [facility] 12:47 PM Wire removed [facility] 12:48 PM Recorded Pressure: Ao, HR=67, Condition=Condition 1 (Aorta) Ao 129/74/97 12:48 PM RCA angiography performed in multiple views. [facility] 12:49 PM Catheter removed [facility] 12:49 PM 5Fr FL 4 catheter inserted over the wire [facility] 12:49 PM HR=65 bpm, ZEIZ=173/89 mmhg, SpO2=97.0 %, Resp=8 B/min, Comment=NSR 12:50 PM LCA angiography performed in multiple views. [facility] 12:50 PM Recorded Pressure: Ao, HR=61, Condition=Condition 1 (Aorta) Ao 110/65/84 12:50 PM Time: 12:35LOC: 4 = Oriented but drowsy [facility] 12:50 PM Time: 12:35 Patient comfortable and pain free: Yes [facility] 12:51 PM Time: 12:51 Nitroglycerin 100 mcg Intracoronary Given by Augustus Livingston MD [facility] 12:55 PM HR=70 bpm, ILNW=282/85 mmhg, SpO2=95.0 %, Resp=16 B/min, Comment=NSR 12:55 PM Catheter removed [facility] 12:56 PM 5Fr Pigtail catheter inserted over the wire [facility] 12:56 PM Recorded Pressure: LV, HR=76, Condition=Condition 1 (Left Ventricle) LV 133/7/9 12:57 PM Recorded Pressure: LV, Ao, HR=75, Condition=Condition 1 (Left Ventricle) LV 126/3/7, (Aorta) Ao 127/74/97 12:57 PM Catheter selectively placed in left ventricle tsoummers 12:57 PM Catheter removed tsoummers 12:57 PM Conversation between Interventionalist and CT Surgeon. tsoummers 12:58 PM Procedure completed at 12:58 tsoummers 12:59 PM HR=71 bpm, WQJB=229/88 mmhg, SpO2=97.0 %, Resp=19 B/min, Comment=NSR 12:59 PM Sign out completed: Radiation Dose 216.79 mGy Fluoro Time: 2.5 Isovue 370 - 200ml contrast 63 ml given by Juan Carlos Livingston MD. Complications: NoneCardiac Rehab Consult needed: NoConfirmed administered medications: Yes tsoummers 01:00 PM Isovue 370 - 200ml,1 Bottle(s) used. tsoummers 01:00 PM Estimated Blood Loss: less than 20cc tsoummers 01:00 PM Post ECG NSR tsoummers 01:00 PM Post Blood Pressure 182/88 tsoummers 01:00 PM Information taught Cardiac Cath tsoummers 01:00 PM Education needs Procedure, Plan of Care, and Responsibilities of Patient in Care tsoummers 01:00 PM Learning barriers :None tsoummers 01:00 PM Education Methods Verbal tsoummers 01:00 PM Education evaluation Able to repeat information tsoummers 01:01 PM Site status No bleeding/hematoma - Rt Groin as reported by Ya Lawson RT at 13:01 tsoummers 01:02 PM Arterial sheath pulled, Angio-seal closure device used and was Successful [id number] S/N. tsoummers 01:02 PM Opsite applied tsoummers 01:02 PM Plavix, Effient or Brilinta given No tsoummers 01:02 PM Delay to floor No tsoummers 01:02 PM Family placed in consult room. tsoummers 01:02 PM Complications: None tsoummers 01:02 PM Fluoro Time: 2.5 tsoummers 01:02 PM Isovue 370 - 200ml contrast 63 ml given by Juan Carlos Livingston MD. tsoummers 01:02 PM Radiation Dose 216.79 mGy tsoummers 01:[address] Castaneda. tsoummers 01:05 PM Time: 12:50 Patient comfortable and pain free: Yes tsoummers 01:05 PM Time: 12:50LOC: 4 = Oriented but drowsy tsoummers 01:06 PM Coronary Dominance: right tsoummers 01:07 PM Report given to Marc HARTMANN Pt taken to 3B Room #36. 13:07 tsoummers 01:07 PM Patient out of room: 13:07 tsoummers 01:08 PM Lesion found in Mid RCA. Pre Stenosis: 100 tsoummers 01:08 PM Lesion found in Proximal LAD. Pre Stenosis: 70 Pre ROSA Flow: tsoummers 01:08 PM Lesion found in Distal Circumflex. Pre Stenosis: 70 Pre ROSA Flow: tsoummers 01:09 PM Lesion found in 1st Marginal. Pre Stenosis: 100 Pre ROSA Flow: tsoummers 01:09 PM Right Coronary, Right Posterior Descending Arteries with Right Posterolateral and Acute Marginal branches with 100 % stenosis. If graft is supplying this area, 0 % stenosis tsoummers 01:09 PM Proximal Left Anterior Descending Coronary Artery with 70% stenosis. If graft is supplying this territory, 0 % stenosis. tsoummers 01:09 PM Circumflex, Obtuse Marginal, Left Posterior Descending, and Left Posterolateral Coronary Arteries with 100 % stenosis. If graft is supplying this area, 0 % stenosis tsoummers 01:14 PM Patient out of room: 13:14 tsoummers Complications Complication None Hemodynamics Pressures Site Systolic/A Wave Diastolic/V Wave Mean AO 129 74 97 AO 110 65 84 LV 133 7 9 LV 126 3 7 AO 127 74 97 Post Procedure Information Blood Pressure: 182/88 mmHg Rhythm: NSR Post procedural instructions were given Surgery consult for CABG Closure Device Time Device Success/Fail 10/15/2017 1:02:00 PM Angio-Seal VIP Successful Site Checks Time Location Status Staff Sheath In? Note 01:01 PM Rt Groin No bleeding/hematoma Ya Lawson RT Pulses Time Site Pre-Procedure Post-Procedure Note Bilateral DP & PT 2+ Bilateral radial 2+ Updated by Connie Oneil RN on 10/15/2017 1:21:14 PM electronically signed on 10/15/2017 1:21:40 PM with status of Final
[2017-10-15] MEDS: Insulin DETEMIR 100 UNIT/ML X5UNITS SQ SCH (13:46)
[2017-10-15] MEDS ORDERED: Ketorolac 30 MG/ML VIAL IVP ONE (14:08)
--- NOTE | 2017-10-15 14:46 | Internal Med Progress Note ---
Date of Encounter: 10/15/17 Time of Encounter: 14:46 - Assessment and plan (1) NSTEMI (non-ST elevated myocardial infarction) Current Visit: Yes Status: Acute Assessment and plan: Mild troponin elevation 0.07, 0.07, 0.06. EKG with mild ST depression in the inferior leads Symptoms and findings concerning for unstable angina/ NSTEMI. Cardiology discussed the need for a heart catheter on Sunday. She agrees to proceed. Cardiac cath report reviewed there is severe three-vessel coronary artery disease, occluded mid RCA receives collaterals from the LCA, severe proximal LAD , severe distal circumflex, occluded OM1 Recommendations our CABG versus complex PCI Cardiothoracic surgery is consulted Await surgery input for further plan Echocardiogram completed Continue heparin gtt. ASA and bb. No statin due to myalgias. (2) Chest pain Current Visit: Yes Status: Acute Assessment and plan: No further chest pain, see plan per cardiology Qualifiers: Chest pain type: unspecified Qualified Code(s): R07.9 - Chest pain, unspecified (3) HLD (hyperlipidemia) Current Visit: Yes Status: Acute Assessment and plan: Patient is Intolerant of statin therapy Qualifiers: Hyperlipidemia type: pure hypercholesterolemia Qualified Code(s): E78.00 - Pure hypercholesterolemia, unspecified; E78.0 - Pure hypercholesterolemia (4) CAD (coronary artery disease) Current Visit: Yes Status: Chronic Assessment and plan: History of PCI in 2002. She reported undergoing multiple LHC since that time. Last LHC in 2010 showed minimal CAD with patent pRCA stent. EF 65%. Continue asa and bb. Not on statin therapy due to myalgias. Qualifiers: Coronary Disease-Associated Artery/Lesion type: [place] artery [place] vs. transplanted heart: [place] heart Associated angina: without angina Qualified Code(s): I25.10 - Atherosclerotic heart disease of [place] coronary artery without angina pectoris (5) Diabetes mellitus Current Visit: Yes Status: Chronic Assessment and plan: Hold sunlfonylurea, continue sliding scale insulin with Accu-Cheks, continue lantus Qualifiers: Diabetes mellitus type: type 2 Diabetes mellitus complication status: without complication Diabetes mellitus ethanol operator insulin use: with fdc use Qualified Code(s): E11.9 - Type 2 diabetes mellitus without complications ; Z79.4 - home care specialist (current) use of insulin; Z79.4 - care home (current) use of insulin; Z79.4 - care home (current) use of insulin; Z79.4 - care home ( current) use of insulin (6) DVT prophylaxis Current Visit: Yes Status: Acute Assessment and plan: Heparin drip per cardiology (7) Back pain Current Visit: Yes Status: Acute Assessment and plan: Patient now having back pain after returning from procedure from laying on the stretcher. She is limited and the pain medicine she can have secondary to her anaphylaxis reaction to morphine. Spoke with the pharmacy and they recommended Toradol. We will offer a lighted Jerez patch, warm compresses or cold compresses if they help. The next option would be IV Tylenolt Qualifiers: Back pain location: low back pain Chronicity: acute Back pain laterality : unspecified Sciatica presence: without sciatica Qualified Code(s): M54.5 - Low back pain - Subjective Interval history: Patient is lying in bed in no acute distress. Her is at the bedside. She is having no further chest pain and feels back to her baseline. No shortness of breath, abdominal pain, fever, chills, sweats, nausea, vomiting, headache, or syncope. She will stay and have an echocardiogram and her cardiac cath on Sunday. When she returned from a cardiac catheter she is complaining of lower back pain , she has anaphylaxis reaction to morphine. Tried Toradol still having some pain we will try heat or ice and a Lidoderm patch. She takes Demerol she stated but is limited here in this institution - Constitutional Vitals: Temp Pulse Resp BP Pulse Ox 97.9 F 66 15 120/78 94 10/15/17 07:33 10/15/17 07:33 10/15/17 07:33 10/15/17 07:33 10/15/17 07:33 General appearance: Present: cooperative, A&O X 3, pleasant, no acute distress, answers questions appropriately - Head Head exam: Present: atraumatic, normocephalic - Eye Eye exam: Present: PERRL, conjuntiva pink, sclera anicteric Pupils: Present: PERRL - Neck Neck exam general surgery: Present: supple, trachea midline. Absent: lymphadenopathy - Respiratory Respiratory exam: Present: CTAB. Absent: accessory muscle use, rales, rhonchi, wheezes - Cardiovascular Cardiovascular exam: Present: RRR, +S1, +S2. Absent: diastolic murmur, gallop, rubs, systolic murmur - GI/Abdominal GI/Abdominal exam: Present: normal bowel sounds, soft, no peritoneal signs. Absent: distended, tenderness - Extremities Exam Extremities exam: Present: warm, radial pulses palpable and symmetrical. Absent : calf tenderness, cyanotic, pedal edema - Neurological Exam Neurological exam: Present: CN II-XII intact, oriented X3, no focal deficits. Absent: pronater drift, facial droop, speech deficit - Skin Skin exam: Present: dry, intact, warm Internal Medicine: Result - Labs CBC & Chem 7: 10/14/17 00:20 10/14/17 00:20 - ABG Interpretation ABG results: PT/INR, D-dimer PT 12.4 Seconds (9.4-12.1) H 10/12/17 20:20 - Impressions Impressions Echocardiogram 10/13/17 12:52 Impressions: LVEF 50-55%. Mild left ventricular diastolic dysfunction. Moderate mitral regurgitation. No evidence of pulmonary hypertension. Left Ventricular Wall Motion: Rest Echo Findings All wall segments showed normal motion. Findings: Study Quality * Technically adequate exam. Right Ventricle * Normal right ventricular structure and function. Left Atrium * Normal left atrial size. Aorta * Normally sized aortic root. Pericardium * The pericardium appears normal. * There is a trivial pericardial effusion present. ECG Findings * Normal sinus rhythm. Left Ventricle * Basal sigmoid septum. * LVEF 50-55%. * Mild left ventricular diastolic dysfunction. Aortic Valve * No aortic regurgitation. * No aortic stenosis. * Mildly calcified aortic valve leaflets. Mitral Valve * Normal mitral valve structure. * No mitral stenosis. * Moderate mitral regurgitation. Tricuspid Valve * Trace tricuspid regurgitation. * No tricuspid stenosis. * Estimated RVSP is 15 mmHg. * No evidence of pulmonary hypertension. IVC * The IVC is not well evaluated. Interatrial Septum * Interatrial septum not well evaluated. Right Atrium * Right atrium is not well visualized. Consult Discharge Plan - Plan Referrals: Livia Hale CNP [Primary Care Provider] -
--- NOTE | 2017-10-15 15:44 | Event Note ---
Date of Encounter: 10/15/17 Time of Encounter: 15:41 - Cardiology Event Note LHC demonstrated severe three vessel CAD. CT surgeon consulted for evaluation. Continue asa, and bb. Not on statin due to myalgias. Please call with questions.
--- NOTE | 2017-10-15 16:10 | Cardiothoracic Consult Note ---
Date of Encounter: 10/15/17 Time of Encounter: 16:07 Assessment and Plan (1) NSTEMI (non-ST elevated myocardial infarction) Current Visit: Yes Status: Acute The assessment and plan as outlined above was discussed with the patient and/or family members who expressed understanding and agreement. All questions were answered. The patient has triple-vessel disease and is a candidate for coronary artery bypass grafting. Risks of surgery include , infection, stroke, myocardial infarction, clots around the heart, bleeding, renal or respiratory failure, acute or chronic graft closure, phrenic nerve injury and sternal dehiscence. The procedure, its risks benefits and alternatives were explained to the patient and her and they wish to proceed as soon as possible. We will tentatively schedule her for tomorrow. - History of Present Illness History of present illness: Ms. Gonzalez is a 62 year old female History of present illness. The patient is a 62-year-old female who has a history of angina at rest. She underwent stenting of her right coronary artery several years ago, and quit taking Plavix 3 years ago. She was admitted on Sunday with a myocardial infarction with a positive troponin of 0.07. Echocardiogram revealed preserved ventricular function with an ejection fraction of 50-55%. She did have moderate mitral regurgitation. She states that she has no problems with hypertension. She does have increased cholesterol. She does have diabetes and is on insulin and pills. Social history. She lives in [place] with her . Does not smoke. Does not drink. She is allergic to morphine. Review of systems is negative for stroke or TIA. Negative for saphenous vein varicosities or strippings. Cardiac catheterization done today revealed 100% right coronary artery lesion, which does fill by collaterals. This may or may not be graftable. The LAD is 70% and a good vessel for a graft. The first obtuse marginal branch is 70% and small after it bifurcates. The distal circumflex is 100% and probably not graftable. Past Med Surg Social Fam HX - Past Medical History Medical history: CHF, coronary artery disease, diabetes, myocardial infarction, thyroid disease Psychiatric history: anxiety - Past Surgical History Surgical History: cholecystectomy, hysterectomy, thyroidectomy, other - Social History Smoking Status: Never smoker Smokeless Tobacco Status: No Alcohol use: none Drug use: none - Family History Mother Hx Family Cardiac Disorders: Yes Father Hx Family Cancer: Yes Hx Family Endocrine Disorder: Yes Medications and Allergies Aspirin Enteric Coated [Aspirin EC] 81 mg PO DAILY 10/12/17 [History] Dulaglutide [Trulicity] 0.75 mg SQ TU@1200 10/12/17 [History] Escitalopram [Lexapro] 20 mg PO DAILY 10/12/17 [History] Glimepiride [Amaryl] 4 mg PO BID 10/12/17 [History] Insulin Glargine,Hum.rec.anlog [Basaglar Kwikpen U-100] 28 unit SQ 1200 [History] Levothyroxine [Synthroid] 25 mcg PO 0630 10/12/17 [History] Pantoprazole Sodium [Protonix] 40 mg PO DAILY PRN 10/12/17 [History] Simvastatin [Zocor] 10 mg PO HS 10/12/17 [History] clonazePAM [Klonopin] 1 mg PO BID 10/12/17 [History] 3 Allergy/AdvReac Type Severity Reaction Status Date / Time morphine Allergy Anaphylaxis Verified 10/12/17 14:36 All Systems Review: A 10-system review of systems was performed and is negative for pertinent findings except as documented above in the HPI. Physical Examination Vital Signs, Last 4 Hours Temp Pulse Resp BP Pulse Ox 10/15/17 15:50 97.7 F 62 18 107/63 94 Pupils are equal, round and reactive to light and accommodation. No oral lesions. Neck is supple. Trachea in the midline. No thyromegaly or carotid bruits. Lungs are clear to percussion and auscultation. Heart is in a regular rate and rhythm. No murmurs, gallops or rubs. Abdomen is benign. No tenderness, rebound or guarding. Extremities without edema. No saphenous vein varicosities or strippings. Cranial nerves, motor and sensory intact. Results 10/14/17 00:20 10/14/17 00:20 Lab Results, Last 24 hours 10/14/17 10/15/17 10/15/17 20:54 04:08 10:21 APTT 55.3 H 98.4 H D 63.8 H Consult Discharge Plan - Plan Referrals: Livia Hale, INSTRUMENT TECHNOLOGIST [Primary Care Provider] -
--- NOTE | 2017-10-15 16:11 | Electrocardiograph Report ---
[address] [place] [address] Test Date: 2017-10-12 Pat Name: Tray Gonzalez Department: 104 Room: 3B36 Gender: F Cvicu Nurse: ALLEY : 1955 Requested By: Memo Boyer Order Number: [id number] Reading MD: Arnoldo Santa DO Measurements Intervals [place] Rate: 98 P: 37 RI: 156 QRS: -31 QRSD: 87 T: 36 QT: 336 QTc: 391 Interpretive Statements SINUS RHYTHM POSSIBLE LEFT ATRIAL ENLARGEMENT MARKED LEFT AXIS DEVIATION LEFT VENTRICULAR HYPERTROPHY AND ST-T CHANGE POSSIBLE ANTERIOR MYOCARDIAL INFARCTION, PROBABLY OLD Electronically Signed On 10-15-2017 16:09:48 EST by Arnoldo Santa DO
[2017-10-15] MEDS ORDERED: Aspirin 81 MG TAB.CHEW PO ONE (16:15)
[2017-10-15] MEDS ORDERED: CeFAZolin Syr 2,000MG/20 ML 2,000 MG/20 ML SYRINGE IVPB ONE (16:15)
[2017-10-15 17:34] LABS: Hemoglobin A1C 9.2 %
[2017-10-15] MEDS: *HR* Heparin 5,000 UNIT/ML VIAL IVP PRN (17:39)
[2017-10-15 17:44] LABS: Chol/HDL Ratio 7.2 (0-4.9)
[2017-10-15] MEDS: Heparin 25,000 UNIT/500 ML D5W 25,000 UNIT/500 ML BAG IVC SCH (21:20)
[2017-10-15] MEDS: Chlorhexidine Rinse 15 ML MOUTHWASH MM SCH (21:20)
[2017-10-15 22:10] LABS: Bilirubin,Urine Negative (Negative); Blood,Urine Moderate (Negative); Clarity,Urine Clear (Clear); Color,Urine Yellow (Yellow); Glucose,Urine (UA) >=1000 mg/dL (Normal); Ketones,Urine Negative (Negative); Leukocyte Esterase,Urine Negative (Negative); Nitrite,Urine Negative (Negative); Protein,Urine Trace mg/dL (Neg-Trace); Specific Gravity,Urine > 1.030 (1.010-1.025); Urobilinogen,Urine Normal (Normal)
[2017-10-15 22:14] LABS: Bacteria,Urine Few per hpf (None-Few); Hyaline Casts,Urine None Seen per lpf (None-Few); Squamous Epithelial Cell,Urine Many per lpf (None-Few)
[2017-10-16 01:11] LABS: Hematocrit 39.8 % (35.3-44.9); Hemoglobin 13.1 g/dL (11.5-15.4); Mean Corpuscular HGB Conc 32.9 g/dL (31.6-35.5); Mean Corpuscular Hemoglobin 30.5 pg (28.0-33.3); Mean Corpuscular Volume 92.6 fL (83.0-100.0); Mean Platelet Volume 10.6 fL (9.4-12.4); Platelet Count 242 K/mcL (140-400); Red Cell Distribution Width 12.6 % (11.5-14.5)
[2017-10-16 02:36] LABS: BUN/Creatinine Ratio 20 (6-26); Blood Urea Nitrogen 17 mg/dL (8-23); Calcium 9.2 mg/dL (8.6-10.3); Carbon Dioxide 27 mEq/L (23-29); Chloride 104 mEq/L (98-107); Glucose 237 mg/dL (70-105); Osmolality,Calculated 293 (280-300); Potassium 3.9 mEq/L (3.5-5.1); Sodium 137 mEq/L (136-145); eGFR For African Americans > 60 (> 60); eGFR For Non-African Americans > 60 (> 60)
[2017-10-16] MEDS ORDERED: CeFAZolin Syr 2,000MG/20 ML 2,000 MG/20 ML SYRINGE IVPB ONE (04:45)
[2017-10-16] MEDS: Chlorhexidine Rinse 15 ML MOUTHWASH MM SCH (05:53)
[2017-10-16] MEDS: Levothyroxine 25 MCG TABLET PO SCH (05:54)
[2017-10-16] MEDS ORDERED: Aspirin 81 MG TAB.CHEW PO ONE (06:00)
[2017-10-16] MEDS ORDERED: Nitroglycerin 25 MG/250 ML INFUS..BTL IVC ONE (06:45)
[2017-10-16] MEDS ORDERED: NiCARdipine 2.5 MG/10 ML Syringe IVPB ONE (06:45)
[2017-10-16] MEDS ORDERED: *HR* PHENYLEPHRINE 1,000 MCG/10 ML SYRINGE IVP ONE ×3 (06:56→11:36)
[2017-10-16] MEDS ORDERED: *HR* Rocuronium Bromide 50 MG/5 ML VIAL ONE (06:56)
[2017-10-16] MEDS ORDERED: Protamine Sulfate 250 MG/25 ML VIAL IVP ONE (06:57)
[2017-10-16] MEDS ORDERED: *HR* Etomidate 20 MG/10 ML AMPUL IVP ONE (06:57)
[2017-10-16] MEDS ORDERED: Tranexamic Acid 1,000 MG/10 ML VIAL ONE ×2 (06:57→10:45)
[2017-10-16] MEDS ORDERED: Famotidine 20 MG/2 ML VIAL ONE (06:57)
[2017-10-16] MEDS ORDERED: *HR* Midazolam HCl 5 MG/5 ML VIAL IVP ONE (07:04)
[2017-10-16] MEDS ORDERED: *HR* FentaNYL (PF) 1,000 MCG/20 ML VIAL ONE (07:05)
[2017-10-16] MEDS ORDERED: Insulin Human Regular 10 UNIT in 0.9 % Sodium Chloride 10 ML IV ONE (07:31)
--- NOTE | 2017-10-16 07:37 | Anesthesia Evaluation PreOp ---
Date of Encounter: 10/16/17 Time of Encounter: 07:34 - Past History Planned Operation: CABG Cardiac History: ID, CHF, Hyperlipidemia, Cardiac Stent (to RCA several years ago) Pulmonary History: Denies Any Significant HX BUDGET ANALYST History: Denies Any Significant HX Other Medical History: Diabetes Type II, Thyroid (hypo) Anesthesia History: Past Anesthesia (DARLING, marla, thyroidectomy), Problems ( Patient reports she coded from overdose of anesthesia with DARLING) : No Alcohol Use: none Drug use: none Medications and Allergies Aspirin Enteric Coated [Aspirin EC] 81 mg PO DAILY 10/12/17 [History] Dulaglutide [Trulicity] 0.75 mg SQ TU@1200 10/12/17 [History] Escitalopram [Lexapro] 20 mg PO DAILY 10/12/17 [History] Glimepiride [Amaryl] 4 mg PO BID 10/12/17 [History] Insulin Glargine,Hum.rec.anlog [Basaglar Kwikpen U-100] 28 unit SQ 1200 [History] Levothyroxine [Synthroid] 25 mcg PO 0630 10/12/17 [History] Pantoprazole Sodium [Protonix] 40 mg PO DAILY PRN 10/12/17 [History] Simvastatin [Zocor] 10 mg PO HS 10/12/17 [History] clonazePAM [Klonopin] 1 mg PO BID 10/12/17 [History] 3 Allergy/AdvReac Type Severity Reaction Status Date / Time morphine Allergy Anaphylaxis Verified 10/12/17 14:36 - Meds/Allergy Pre-op Review Medications Reviewed: Yes Allergies Reviewed: Yes Beta Blockers on Current Med List: Yes If Beta Blockers taken, Date/Time (Last Dose taken): today 0553 Anesthesia Results - Labs 10/16/17 00:40 10/16/17 00:40 - Imaging Additional studies: cath: Impressions: There is severe three vessel coronary artery disease. Occluded Mid RCA receives collaterals from the LCA Severe Proximal LAD Severe distal CIRC Occluded OM1 echo: Impressions: LVEF 50-55%. Mild left ventricular diastolic dysfunction. Moderate mitral regurgitation. No evidence of pulmonary hypertension. Anesthesia Exam Selected Entries 10/16/17 05:37 Temperature 97.7 F Pulse Rate 66 Respiratory Rate 16 Blood Pressure 121/76 O2 Sat by Pulse Oximetry 96 Height: 1.6m Weight: 77kg NPO (# of Hours): 8 - HEENT Pupil (Motor): EOMI Mallampati: II Teeth: Normal Oral Opening: Greater than 3 - BUDGET ANALYST LOC: Oriented BUDGET ANALYST Motor: Normal RUE, Normal LUE, Normal RLE, Normal LLE, Normal Face BUDGET ANALYST Sensory: Normal: RUE, LUE, RLE, LLE, Face - Cardiac Rhythm: Regular Murmur: None - Pulmonary Breath Sounds: bilateral Clear Respiratory Effort: Symmetrical Anesthesia Assess/Plan ASA Score: 3 Modified [place] Scale for Level of Consciousness: Cooperative, oriented, and tranquil Anesthetic Plan: General Monitoring Plan: Standard Monitors, A-Line, PAC, JUDY Recovery Plan: ICU (discussed GA, lines, JUDY and blood products, agrees to proceed)
[2017-10-16] MEDS ORDERED: Dextrose 50 % in Water (Vial) 30 ML, Sodium Bicarbonate 20 MEQ, Lidocaine 1% 5 ML, Insu... TH SCH (08:15)
[2017-10-16] MEDS ORDERED: Insulin Human Regular 100 UNIT in 0.9 % Sodium Chloride 100 ML IV PRN (08:15)
[2017-10-16] MEDS ORDERED: Dextrose 50 % in Water (Vial) 30 ML, Sodium Bicarbonate 20 MEQ, Potassium Chloride 15 M... TH ONE (08:15)
[2017-10-16] MEDS ORDERED: Heparin 15,000 UNIT in 0.9 % Sodium Chloride 500 ML IV SCH (08:15)
[2017-10-16] MEDS ORDERED: Norepinephrine 4 MG in D5% in Water 250 ML IVC PRN (08:15)
[2017-10-16 08:36] LABS: ABG Base Excess -2 mEq/L (-2 to 3); ABG Chloride 105 mEq/L (98-107); ABG Glucose 197 mg/dL (60-95); ABG HCO3 27 mEq/L (21-27); ABG Ionized Calcium 1.23 mmol/L (1.15-1.35); ABG Oxygen Saturation 97 % (95-98); ABG PCO2 64 mmHg (35-45); ABG PH 7.23 pH Units (7.32-7.45); ABG PO2 115 mmHg (85-104); ABG TCO2 29 mEq/L (20-26)
[2017-10-16 09:48] LABS: ABG Base Excess 0 mEq/L (-2 to 3); ABG Chloride 104 mEq/L (98-107); ABG Glucose 249 mg/dL (60-95); ABG HCO3 24 mEq/L (21-27); ABG Ionized Calcium 1.17 mmol/L (1.15-1.35); ABG Oxygen Saturation 100 % (95-98); ABG PCO2 39 mmHg (35-45); ABG PH 7.41 pH Units (7.32-7.45); ABG PO2 226 mmHg (85-104); ABG TCO2 26 mEq/L (20-26)
[2017-10-16 10:17] LABS: ABG Base Excess 2 mEq/L (-2 to 3); ABG Chloride 97 mEq/L (98-107); ABG Glucose 274 mg/dL (60-95); ABG HCO3 25 mEq/L (21-27); ABG Ionized Calcium 0.91 mmol/L (1.15-1.35); ABG PCO2 34 mmHg (35-45); ABG PH 7.48 pH Units (7.32-7.45); ABG PO2 > 630 mmHg (85-104); ABG TCO2 26 mEq/L (20-26)
--- NOTE | 2017-10-16 10:28 | Anesthesia Procedures ---
Date of Encounter: 10/16/17 Time of Encounter: 08:20 Procedures: Anesthesia - Arterial Line Consent obtained: written consent Time out performed: Yes Sedation: Versed (mg): 2 Sedation: Fentanyl (mcg): 100 Supplemental Oxygen via Nasal Cannula (L/min): 2 Size (Gauge): 20 Length (inches): 5 Technique Used: sterile prep, guide wire technique, direct puncture technique Post-Procedure: line taped into place, dry sterile dressing placed Patient tolerated procedure: well, no complications Complications: none Site: Radial L (attempt x 1) - Central Line Placement Right IJ Consent obtained: written consent Time out performed: Yes Patient placed on monitor/pulse ox: Yes MD prep: mask, gown, gloves Central line prep: Chlorhexidine scrub Ultrasound used for placement: Yes Technique: Seldinger Lumen Inserted: Introducer Post procedure: sutured in place, good blood return, all ports aspirated, flushed, capped, sterile dressing applied Patient tolerated procedure: well, no complications Complications: none (introducer placed easily. Hedley passed without arrythmia, wedge approx 50cm)
--- NOTE | 2017-10-16 10:33 | Event Note ---
Date of Encounter: 10/16/17 Time of Encounter: 10:31 Pt was already gone from unit for CABG, I was unable to evaluate her. Pt will move to ICU 5 after CABG.
[2017-10-16 10:40] LABS: ABG Base Excess 4 mEq/L (-2 to 3); ABG Chloride 99 mEq/L (98-107); ABG Glucose 287 mg/dL (60-95); ABG HCO3 28 mEq/L (21-27); ABG Ionized Calcium 0.98 mmol/L (1.15-1.35); ABG Oxygen Saturation 100 % (95-98); ABG PCO2 36 mmHg (35-45); ABG PO2 519 mmHg (85-104); ABG TCO2 29 mEq/L (20-26)
[2017-10-16] MEDS ORDERED: Protamine Sulfate 50 MG/5 ML VIAL IVP ONE (11:16)
[2017-10-16 11:21] LABS: ABG Base Excess 0 mEq/L (-2 to 3); ABG Chloride 104 mEq/L (98-107); ABG Glucose 232 mg/dL (60-95); ABG HCO3 24 mEq/L (21-27); ABG Ionized Calcium 1.31 mmol/L (1.15-1.35); ABG Oxygen Saturation 92 % (95-98); ABG PCO2 37 mmHg (35-45); ABG PH 7.42 pH Units (7.32-7.45); ABG PO2 63 mmHg (85-104); ABG TCO2 25 mEq/L (20-26)
[2017-10-16 11:50] LABS: ABG Base Excess 0 mEq/L (-2 to 3); ABG Chloride 106 mEq/L (98-107); ABG Glucose 203 mg/dL (60-95); ABG HCO3 24 mEq/L (21-27); ABG Ionized Calcium 1.25 mmol/L (1.15-1.35); ABG Oxygen Saturation 100 % (95-98); ABG PCO2 34 mmHg (35-45); ABG PH 7.46 pH Units (7.32-7.45); ABG PO2 192 mmHg (85-104); ABG TCO2 25 mEq/L (20-26)
[2017-10-16] MEDS ORDERED: *HR* Dextrose 50 % in Water (Syg) 50 ML SYRINGE IVP PRN (11:57)
[2017-10-16] MEDS ORDERED: Calcium Chloride 1,000 MG in 0.9 % Sodium Chloride 100 ML IVPB PRN (11:57)
[2017-10-16] MEDS ORDERED: Ondansetron 4 MG/2 ML VIAL IVP PRN (11:57)
[2017-10-16] MEDS ORDERED: Insulin Regular, Human 100 UNIT/ML IV PRN (11:57)
[2017-10-16] MEDS ORDERED: Potassium Chloride 40 MEQ/200 ML BAG IVPB PRN (11:57)
[2017-10-16] MEDS ORDERED: Acetaminophen 650 MG RECTAL SUPP RC PRN (11:57)
[2017-10-16] MEDS ORDERED: 0.9 % Sodium Chloride w KCl 20 MEQ/1,000 ML MLS IVC SCH (12:00)
[2017-10-16] MEDS ORDERED: Insulin Human Regular 100 UNIT in 0.9 % Sodium Chloride 100 ML IVC SCH (12:00)
[2017-10-16] MEDS ORDERED: Pantoprazole 40 MG VIAL IVP SCH (12:00)
[2017-10-16] MEDS ORDERED: (Dulaglutide [Trulicity] 0.75 MG) SQ SCH (12:00)
[2017-10-16] MEDS ORDERED: Norepinephrine 4 MG in D5% in Water 250 ML IVC SCH (12:00)
--- NOTE | 2017-10-16 12:26 | Operative Note ---
Date of procedure: 10/16/17 Pre-op diagnosis: NSTEMI Post-op diagnosis: same Procedure: 1. CABG 3 (RAMIRES to LAD, SVG to OM 2, SVG to distal RCA). 2. Endoscopic vein harvesting, greater saphenous vein from right lower extremity. Implants: None. Complications: None. Anesthesia: LENORAA Surgeon: Joanna Raphael Was there an legal administrative assistant present: Yes Pharmacy Picking Tech: Avni Aggarwal Estimated blood loss (cc): 500 Specimen: None. Condition: stable Disposition: ICU Procedure in Detail: INDICATIONS FOR OPERATION: Then patient is a 62-year-old type II diabetic lady with known CAD and hypercholesterolemia. Her cardiac history dates back to 2002 which time she underwent percutaneous catheter intervention and stent placement. She did well until Wednesday, October 12, 2016 when she had sudden onset of substernal chest pain radiating from her left shoulder to her right shoulder. This was associated with shortness of breath and dyspnea on exertion the patient was evaluated at [facility] emergency department. The patient was found to have elevated troponin I levels consistent with an acute NSTEMI. She was admitted for further cardiac care. The patient underwent cardiac catheterization yesterday and was found to have severe 3 vessel CAD and LVEF 50-60%. In particular the patient has a 70% proximal LAD lesion, completely occluded proximal OM1 branch, and a completely occluded proximal RCA. She has been recommended for CABG. FINDINGS AT OPERATION: The aorta was of normal caliber without calcification. The coronary arteries measure proximally 1.5-2 mm in diameter and had mild distal disease. The greater saphenous vein was harvested endoscopically from the right lower extremity from the knee to the groin and was of good quality. The total bypass time was 64 minutes, cross-clamp time 36 minutes, intentional hypothermia of 34.9C. DESCRIPTION OF OPERATION: After obtaining informed operative percent from the patient, she was taken to the peridium room where a satisfactory general and tracheal anesthetic was induced. Appropriate monitoring lines were placed, the patient's chest and abdomen, and lower extremities were prepped and draped in a sterile fashion. The greater saphenous vein was harvested endoscopically from the right lower extremity from the knee to the groin. The vein was removed, distended, and found to be of good quality. The subcutaneous tissue and skin edges were reapproximated using running Vicryl sutures. Simultaneously a standard median sternotomy incision was made and the sternum divided. The RAMIRES was taken down from its bed and side branches divided between hemoclips. The sternum was and the pericardium opened and reflected laterally. The patient was repaired for cannulation by placing pursestring sutures in the distal ascending aorta, mid-ascending aorta, and right atrial appendage. The patient was heparinized and when the ACT was greater than 200 seconds, the distal ascending aorta was cannulated followed by placement of a dual stage venous cannula through the right atrial appendage and into the inferior vena cava. A stab-in antegrade metabolic and was placed in mid- ascending aorta. The patient was placed on bypass and the temperature allowed to drift to 34.9 C. The distal targets were identified and the aorta was crossclamped. The patient received 700 mL of cold antegrade crystalloid artery plegia through the aortic root and the patient's heart obtain rapid diastolic arrest. The distal RCA was opened be ablated the vein was anastomosed in end-to-side fashion using running 7-0 Prolene suture. The anastomosis was found to be hemostatic. This process was repeated for the OM 2 branch. After completion of this anastomosis the patient received a final dose of cold antegrade crystalloid cardioplegia through the aortic root. The LAD was opened with a [place] blade and the RAMIRES was anastomosed in an end-to-side fashion to the LAD using a running 7-0 Prolene suture. The anastomosis was found to be hemostatic and the mammary pedicle was tacked to the epicardium using interrupted 5-0 silk suture. Rewarming was begun during this anastomosis. The aortic cross-clamp was released and the heart distended. The veins were measured and cut at appropriate lengths. A partial occluding clamp was placed across the mid-ascending aorta and the antegrade cardioplegic cannula was removed. An additional aortotomy site was made with an 11 blade and both sides were enlarged to 4 mm punch. The veins were anastomosed in an end-to-side fashion to the aorta using a running 5-0 Prolene suture. The vein grafts were occluded with bulldog clamps anterior the 25-gauge needle prior to removing the partial occluding clamp. The proximal and distal anastomoses were found to be hemostatic and the proximal anastomoses were marked with radiopaque loops. Two right ventricular temporary epicardial pacing was replaced, and 3 chest tubes were placed, 2 in the mediastinum once the left pleural space. During rewarming the patient's heart regained normal sinus rhythm spontaneously. The patient's systemic temperature reached 36C, she was ventilated received volume. She was weaned from bypass required no inotropic support. Protamine was administered and the aortic and venous cannula removed. The pursestring sutures were secured and the venous cannulation site was reinforced with a running 4-0 Prolene suture. The pericardium was approximated over the aorta and pulmonary artery; however, could not be reapproximated over the right ventricle due to excessive tension. The sternum was reapproximated using sternal wires and the pectoralis major fascia, rectus abdominis fascia, subcutaneous tissue, and skin edges were reapproximated using running Vicryl sutures. A negative pressure sterile dressing was placed on the sternotomy incision. The patient was transferred to the ICU in satisfactory postoperative condition. There were no intraoperative complications and the instrument, needle, and sponge count were correct at end of operation. - Open Heart Detail MARISA (Internal Mammary Artery) Usage: Yes Cardiopulmonary Bypass Time (mins): 64 Aortic Cross Clamp Time (mins): 36 Intentional Hypothermia Temperature (C.): 34.9
[2017-10-16 12:50] LABS: Basophils % 0.2 %; Eosinophils # 0.3 K/mcL (0.0-0.6); Eosinophils % 1.6 %; Hematocrit 31.8 % (35.3-44.9); Immature Granulocytes % 0.9 % (0-4); Lymphocytes % 18.4 %; Mean Corpuscular HGB Conc 33.3 g/dL (31.6-35.5); Mean Corpuscular Hemoglobin 30.6 pg (28.0-33.3); Mean Corpuscular Volume 91.9 fL (83.0-100.0); Mean Platelet Volume 9.6 fL (9.4-12.4); Monocytes # 0.3 K/mcL (0.0-1.3); Monocytes % 1.9 %; Neutrophils # 13.2 K/mcL (1.6-8.9); Platelet Count 131 K/mcL (140-400); Red Blood Count 3.46 M/mcL (3.82-4.97); Red Cell Distribution Width 12.6 % (11.5-14.5)
[2017-10-16 12:56] LABS: Hemoglobin 10.6 g/dL (11.5-15.4); Lymphocytes # 3.2 K/mcL (0.6-4.6)
[2017-10-16 12:58] LABS: INR 1.5
[2017-10-16 12:58] LABS: ABG Base Excess 1 mEq/L (-2 to 3); ABG HCO3 26 mEq/L (21-27); ABG Oxygen Saturation 91 % (95-98); ABG PCO2 41 mmHg (35-45); ABG PH 7.41 pH Units (7.32-7.45); ABG PO2 60 mmHg (85-104); ABG TCO2 27 mEq/L (20-26)
[2017-10-16 13:02] LABS: Activated Partial Thrombo Time 33.6 Seconds (26.0-36.0)
[2017-10-16 13:04] LABS: Prothrombin Time 16.4 Seconds (9.4-12.1)
[2017-10-16 13:09] LABS: BUN/Creatinine Ratio 18 (6-26); Blood Urea Nitrogen 11 mg/dL (8-23); Calcium 8.8 mg/dL (8.6-10.3); Carbon Dioxide 26 mEq/L (23-29); Chloride 108 mEq/L (98-107); Glucose 186 mg/dL (70-105); Magnesium 2.4 mg/dL (1.6-2.6); Osmolality,Calculated 294 (280-300); Potassium 3.4 mEq/L (3.5-5.1); Sodium 140 mEq/L (136-145); eGFR For African Americans > 60 (> 60); eGFR For Non-African Americans > 60 (> 60)
[2017-10-16] MEDS: Nitroglycerin 25 MG/250 ML INFUS..BTL IVC SCH ×2 (13:25→19:40)
[2017-10-16] MEDS: Metoclopramide 10 MG/2 ML VIAL IVP SCH ×3 (13:26→23:01)
[2017-10-16] MEDS: Ketorolac 15 MG/ML VIAL IVP SCH ×3 (13:26→23:01)
[2017-10-16] MEDS: niCARdipine 40 MG/200 ML MLS IVC SCH ×3 (13:34→23:02)
--- NOTE | 2017-10-16 14:26 | Electrocardiograph Report ---
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
--- NOTE | 2017-10-16 14:43 | Event Note ---
Date of Encounter: 10/16/17 Time of Encounter: 08:00 - Cardiology Event Note Patient went to surgery today for CABG. Patient will be transitioned to Ct surgery service. Cardiology will sign off. Call with questions.
[2017-10-16] MEDS ORDERED: POTASSIUM CHLORIDE IVPB PRN (14:45)
[2017-10-16] MEDS: *HR* FentaNYL (PF) 100 MCG/2 ML VIAL IVP PRN (15:58)
[2017-10-16] MEDS: CeFAZolin Premix DUPLEX 2,000 MG/50 ML BAG IVPB SCH ×2 (15:59→23:00)
[2017-10-16 16:56] LABS: Basophils % 0.2 %; Eosinophils % 0.3 %; Hematocrit 22.7 % (35.3-44.9); Immature Granulocytes % 0.8 % (0-4); Lymphocytes # 1.1 K/mcL (0.6-4.6); Lymphocytes % 9.9 %; Mean Corpuscular HGB Conc 33.9 g/dL (31.6-35.5); Mean Corpuscular Hemoglobin 30.6 pg (28.0-33.3); Mean Corpuscular Volume 90.1 fL (83.0-100.0); Mean Platelet Volume 10.2 fL (9.4-12.4); Monocytes # 1.1 K/mcL (0.0-1.3); Monocytes % 9.1 %; Neutrophils # 9.2 K/mcL (1.6-8.9); Platelet Count 110 K/mcL (140-400); Red Blood Count 2.52 M/mcL (3.82-4.97); Red Cell Distribution Width 12.7 % (11.5-14.5); Segmented Neutrophils % 79.7 %
[2017-10-16 16:58] LABS: INR 1.7
[2017-10-16 17:09] LABS: BUN/Creatinine Ratio 13 (6-26); Blood Urea Nitrogen 9 mg/dL (8-23); Calcium 7.5 mg/dL (8.6-10.3); Carbon Dioxide 22 mEq/L (23-29); Chloride 114 mEq/L (98-107); Glucose 155 mg/dL (70-105); Osmolality,Calculated 306 (280-300); Potassium 3.7 mEq/L (3.5-5.1); Sodium 147 mEq/L (136-145); eGFR For African Americans > 60 (> 60); eGFR For Non-African Americans > 60 (> 60)
[2017-10-16 17:14] LABS: ABG Base Excess 3 mEq/L (-2 to 3); ABG HCO3 26 mEq/L (21-27); ABG Oxygen Saturation 99 % (95-98); ABG PCO2 31 mmHg (35-45); ABG PH 7.53 pH Units (7.32-7.45); ABG PO2 125 mmHg (85-104); ABG TCO2 27 mEq/L (20-26)
[2017-10-16 17:21] LABS: Hemoglobin 7.7 g/dL (11.5-15.4)
[2017-10-16] MEDS: Insulin LISPRO 300 UNITS/3 ML VIAL SQ SCH ×3 (19:36→19:40)
[2017-10-16] MEDS: clonazePAM 1 MG TABLET PO SCH ×2 (19:38→20:01)
[2017-10-16] MEDS: Insulin DETEMIR 100 UNIT/ML X5UNITS SQ SCH (19:39)
[2017-10-16 19:55] LABS: ABG Base Excess 2 mEq/L (-2 to 3); ABG HCO3 28 mEq/L (21-27); ABG Oxygen Saturation 97 % (95-98); ABG PCO2 50 mmHg (35-45); ABG PH 7.36 pH Units (7.32-7.45); ABG PO2 99 mmHg (85-104); ABG TCO2 30 mEq/L (20-26); Blood Gas Modality VC
[2017-10-16] MEDS: *HR* OxyCODONE/APAP 5/325 TABLET PO PRN (20:25)
[2017-10-16] MEDS ORDERED: Chlorhexidine Rinse 15 ML MOUTHWASH MM SCH (21:00)
[2017-10-16 22:14] LABS: ABG Base Excess 1 mEq/L (-2 to 3); ABG HCO3 27 mEq/L (21-27); ABG Oxygen Saturation 98 % (95-98); ABG PCO2 46 mmHg (35-45); ABG PH 7.37 pH Units (7.32-7.45); ABG PO2 105 mmHg (85-104); ABG TCO2 28 mEq/L (20-26)
[2017-10-16 23:42] LABS: ABG Base Excess 3 mEq/L (-2 to 3); ABG HCO3 28 mEq/L (21-27); ABG Oxygen Saturation 95 % (95-98); ABG PCO2 46 mmHg (35-45); ABG PH 7.39 pH Units (7.32-7.45); ABG PO2 77 mmHg (85-104); ABG TCO2 30 mEq/L (20-26)
[2017-10-17] MEDS: *HR* FentaNYL (PF) 100 MCG/2 ML VIAL IVP PRN ×3 (01:12→21:58)
[2017-10-17 03:12] LABS: Basophils % 0.2 %; Hemoglobin 8.3 g/dL (11.5-15.4); Immature Granulocytes % 0.6 % (0-4); Lymphocytes # 0.9 K/mcL (0.6-4.6); Lymphocytes % 8.6 %; Mean Corpuscular HGB Conc 33.2 g/dL (31.6-35.5); Mean Corpuscular Hemoglobin 30.9 pg (28.0-33.3); Mean Corpuscular Volume 92.9 fL (83.0-100.0); Mean Platelet Volume 9.8 fL (9.4-12.4); Monocytes # 0.8 K/mcL (0.0-1.3); Monocytes % 7.8 %; Neutrophils # 8.8 K/mcL (1.6-8.9); Platelet Count 130 K/mcL (140-400); Red Blood Count 2.69 M/mcL (3.82-4.97); Red Cell Distribution Width 13.2 % (11.5-14.5); Segmented Neutrophils % 82.8 %
[2017-10-17 03:17] LABS: INR 1.3
[2017-10-17 03:20] LABS: Activated Partial Thrombo Time 30.1 Seconds (26.0-36.0)
[2017-10-17 03:30] LABS: BUN/Creatinine Ratio 15 (6-26); Blood Urea Nitrogen 13 mg/dL (8-23); Calcium 8.3 mg/dL (8.6-10.3); Carbon Dioxide 27 mEq/L (23-29); Chloride 109 mEq/L (98-107); Glucose 159 mg/dL (70-105); Magnesium 1.9 mg/dL (1.6-2.6); Osmolality,Calculated 295 (280-300); Potassium 4.6 mEq/L (3.5-5.1); Sodium 141 mEq/L (136-145); eGFR For African Americans > 60 (> 60); eGFR For Non-African Americans > 60 (> 60)
[2017-10-17] MEDS: Ketorolac 15 MG/ML VIAL IVP SCH ×3 (05:00→16:55)
[2017-10-17] MEDS: Metoclopramide 10 MG/2 ML VIAL IVP SCH ×3 (05:00→16:55)
[2017-10-17] MEDS: Levothyroxine 25 MCG TABLET PO SCH (06:00)
[2017-10-17] MEDS: *HR* OxyCODONE/APAP 5/325 TABLET PO PRN ×2 (06:00→15:21)
[2017-10-17] MEDS: Aspirin Enteric Coated 81 MG Tablet PO SCH ×2 (07:10→08:10)
[2017-10-17] MEDS: Insulin LISPRO 300 UNITS/3 ML VIAL SQ SCH ×5 (07:12→21:49)
--- NOTE | 2017-10-17 07:23 | Cardiothoracic Progress Note ---
Date of Encounter: 10/17/17 Time of Encounter: 07:21 - Assessment and plan (1) CAD (coronary artery disease) Current Visit: Yes Status: Chronic The patient is doing well after her CABG 3. She is currently extubated breathing comfortably. She has no complaints. The arterial line, [place] catheter , [place] catheter be removed. She will be transferred to the stepdown unit when a bed is available area The assessment and plan as outlined above was discussed with the patient and/or family members who expressed understanding and agreement. All questions were answered. Qualifiers: Coronary Disease-Associated Artery/Lesion type: [place] artery [place] vs. transplanted heart: [place] heart Associated angina: without angina Qualified Code(s): I25.10 - Atherosclerotic heart disease of [place] coronary artery without angina pectoris - Subjective Procedure(s) Performed: POD#1 S/P CABG3 Interval history: The patient remained hemodynamically stable overnight. She is currently extubated breathing comfortably. She has no complaints. Vital Signs, Last 4 Hours Temp Pulse Resp BP Pulse Ox 10/17/17 07:00 93 12 103/50 95 10/17/17 06:00 98 16 107/52 95 10/17/17 05:00 101 15 107/57 93 10/17/17 04:11 15 105/55 95 10/17/17 04:02 99.8 F H 93 18 114/54 95 Oxgyen Flow Rate Oxygen Flow Rate (LPM) 2 Clinical Data, last 8 Hours Output, Chest Tube Drainage 3 Amount [Mediastinal #2] Output, Chest Tube Drainage 5 Amount [Mediastinal #2] Output, Chest Tube Drainage 10 Amount [Mediastinal #2] Output, Chest Tube Drainage 5 Amount [Mediastinal #1] Output, Chest Tube Drainage 20 Amount [Mediastinal #1] Output, Chest Tube Drainage 22 Amount [Mediastinal #1] Output, Chest Tube Drainage 15 Amount [Mediastinal #1] Output, Chest Tube Drainage 15 Amount [Mediastinal #1] Output, Chest Tube Drainage 30 Amount [Mediastinal #1] Output, Chest Tube Drainage 20 Amount [Mediastinal #1] Weight 10/15/17 10/16/17 10/17/17 23:59 23:59 23:59 Weight 76.022 kg 77.467 kg - Physical Examination General: Conversant, No Apparent Distress Neck: No JVD, Normal carotid pulses Cardiac: Reg Rate and Rhythm, Normal S1 and S2, No Murmur Incision: No signs of infection, Dry/intact dressing Sternum: Stable Chest tubes: Minimal drainage, Other (No air leak.) Pacing Wires: In place Lungs: Normal Breath Sounds, No Wheeze, Rales, Rhonchi Neuro: Alert and responsive, No focal deficits noted Vascular: Normal capillary refill Extremities: No Clubbing, No Cyanosis, No Edema - Labs 10/17/17 03:00 10/17/17 03:00 Lab Results, Last 24 hours 10/16/17 10/16/17 10/16/17 12:32 12:32 12:32 WBC 17.1 H D Hgb 10.6 L D Hct 31.8 L Plt Count 131 L INR 1.5 APTT 33.6 D Sodium 140 Potassium 3.4 L Chloride 108 H Carbon Dioxide 26 BUN 11 Creatinine 0.62 Glucose 186 H Calcium 8.8 Magnesium 2.4 10/16/17 10/16/17 10/16/17 16:35 16:35 16:35 WBC 11.5 H Hgb 7.7 L D Hct 22.7 L Plt Count 110 L INR 1.7 APTT Sodium 147 H Potassium 3.7 Chloride 114 H Carbon Dioxide 22 L BUN 9 Creatinine 0.69 Glucose 155 H Calcium 7.5 L Magnesium 10/17/17 10/17/17 10/17/17 03:00 03:00 03:00 WBC 10.6 Hgb 8.3 L Hct 25.0 L Plt Count 130 L INR 1.3 APTT 30.1 Sodium 141 Potassium 4.6 Chloride 109 H Carbon Dioxide 27 BUN 13 Creatinine 0.85 Glucose 159 H Calcium 8.3 L Magnesium 1.9 - Imaging Chest Xray: image reviewed (No pneumothorax. Minimal atelectasis/infiltrates.) - VTE Documentation of Mechanical Device: Graduated compression elastic hosiery Consult Discharge Plan - Plan Referrals: Livia Hale, ICEBOX MAN [Primary Care Provider] -
[2017-10-17] MEDS ORDERED: Insulin Regular, Human 100 UNIT/ML IV PRN (07:43)
[2017-10-17] MEDS ORDERED: Insulin Human Regular 100 UNIT in 0.9 % Sodium Chloride 100 ML IVC SCH (07:43)
[2017-10-17] MEDS ORDERED: Dextrose 50 % in Water (Vial) 30 ML, Sodium Bicarbonate 20 MEQ, Lidocaine 1% 5 ML, Insu... TH SCH (07:43)
[2017-10-17] MEDS ORDERED: Dextrose Gel 15 GM/37.5 ML TUBE PO PRN ×4 (07:43)
[2017-10-17] MEDS ORDERED: *HR* OxyCODONE/APAP 5/325 TABLET PO PRN (07:43)
[2017-10-17] MEDS ORDERED: Melatonin 3 MG TABLET PO PRN (07:43)
[2017-10-17] MEDS ORDERED: Acetaminophen 325 MG TABLET PO PRN (07:43)
[2017-10-17] MEDS ORDERED: POTASSIUM CHLORIDE IVPB PRN (07:43)
[2017-10-17] MEDS ORDERED: *HR* Dextrose 50 % in Water (Syg) 50 ML SYRINGE IVP PRN ×3 (07:43)
[2017-10-17] MEDS ORDERED: Ondansetron 4 MG/2 ML VIAL IVP PRN (07:43)
[2017-10-17] MEDS ORDERED: *HR* FentaNYL (PF) 100 MCG/2 ML VIAL IVP PRN (07:43)
[2017-10-17] MEDS ORDERED: D5% in Water 1,000 ML IVC PRN (07:43)
[2017-10-17] MEDS ORDERED: Nitroglycerin 0.4 MG TAB.SUBL SL PRN (07:43)
[2017-10-17] MEDS ORDERED: Naloxone 0.4 MG/ML INJ IVP PRN (07:43)
[2017-10-17] MEDS: Chlorhexidine Rinse 15 ML MOUTHWASH MM SCH ×2 (08:09→21:48)
[2017-10-17] MEDS: Furosemide 20 MG/2 ML VIAL IVP SCH ×2 (08:09→21:48)
[2017-10-17] MEDS: clonazePAM 1 MG TABLET PO SCH ×2 (08:20→21:45)
[2017-10-17] MEDS: *HR* Glimepiride 4 MG TABLET PO SCH ×2 (08:24→16:53)
[2017-10-17] MEDS: *HR* Heparin 5,000 UNIT/ML VIAL SQ SCH ×2 (08:30→16:56)
[2017-10-17] MEDS: Pantoprazole 40 MG VIAL IVP SCH (08:30)
[2017-10-17] MEDS ORDERED: Albumin Human 25% 25 GM/100 ML IV.SOLN IV ONE (08:49)
[2017-10-17] MEDS ORDERED: *HR* Magnesium Sulfate 2 GM/50 ML PIGGYBACK IVPB ONE (08:49)
[2017-10-17] MEDS ORDERED: *HR* Heparin 10,000 UNIT/10 ML VIAL IV ONE (08:49)
[2017-10-17] MEDS ORDERED: Lidocaine 2% Syringe 100 MG/5 ML IV ONE (08:49)
[2017-10-17] MEDS ORDERED: Mannitol 25% vial 12.5 GM/50 ML VIAL IVP ONE (08:49)
[2017-10-17] MEDS ORDERED: Sodium Bicarbonate 50 MEQ/50 ML VIAL IVC ONE (08:49)
[2017-10-17] MEDS ORDERED: *HR* Phenylephrine 10 MG/ML VIAL IVC ONE (08:49)
[2017-10-17] MEDS ORDERED: Aspirin Enteric Coated 81 MG Tablet PO SCH (09:00)
[2017-10-17] MEDS ORDERED: Furosemide 20 MG/2 ML VIAL IVP SCH (09:00)
--- NOTE | 2017-10-17 10:41 | Anesthesia Evaluation Post Op ---
Date of Encounter: 10/17/17 Time of Encounter: 10:30 - Vital Signs Vital Signs: Selected Entries 10/17/17 10:00 Pulse Rate 76 Respiratory Rate 16 Blood Pressure 83/53 O2 Sat by Pulse Oximetry 95 Oxygen Flow Rate (LPM) 2 Oxygen Delivery Method Nasal Cannula - Lungs Lungs: Clear Ascult./Percussion - Airway Airway: Non-obstructed - Cardiovascular Regular Rate - Mental Status Mental Status: Alert & Oriented, Answers Appropriately - Pain Pain Scale: 4 Pain Scale used: Numeric (1 - 10) - Nausea Vomiting Nausea Vomiting: Not Present - Hydration Hydration: Tolerates oral liquids - Discharge PostOp Status: Transfer Patient to floor (no apparent anesthesia issues post-op)
[2017-10-17] MEDS: Insulin DETEMIR 100 UNIT/ML X5UNITS SQ SCH (11:09)
[2017-10-17] MEDS ORDERED: *HR* OxyCODONE/APAP 10/325 TABLET PO PRN (13:10)
[2017-10-17] MEDS: *HR* OxyCODONE/APAP 10/325 TABLET PO PRN (16:14)
[2017-10-18] MEDS: Ketorolac 15 MG/ML VIAL IVP SCH ×5 (00:56→23:35)
[2017-10-18] MEDS: Metoclopramide 10 MG/2 ML VIAL IVP SCH ×5 (00:56→23:35)
[2017-10-18] MEDS: *HR* OxyCODONE/APAP 10/325 TABLET PO PRN ×2 (00:56→20:09)
[2017-10-18 04:10] LABS: Basophils % 0.2 %; Eosinophils # 0.1 K/mcL (0.0-0.6); Eosinophils % 0.4 %; Hematocrit 25.5 % (35.3-44.9); Hemoglobin 8.2 g/dL (11.5-15.4); Immature Granulocytes % 0.4 % (0-4); Lymphocytes # 2.4 K/mcL (0.6-4.6); Lymphocytes % 18.9 %; Mean Corpuscular HGB Conc 32.2 g/dL (31.6-35.5); Mean Corpuscular Hemoglobin 30.6 pg (28.0-33.3); Mean Corpuscular Volume 95.1 fL (83.0-100.0); Mean Platelet Volume 10.7 fL (9.4-12.4); Monocytes # 0.9 K/mcL (0.0-1.3); Monocytes % 6.9 %; Neutrophils # 9.4 K/mcL (1.6-8.9); Platelet Count 155 K/mcL (140-400); Red Blood Count 2.68 M/mcL (3.82-4.97); Red Cell Distribution Width 13.6 % (11.5-14.5); Segmented Neutrophils % 73.2 %
[2017-10-18] MEDS: *HR* OxyCODONE/APAP 5/325 TABLET PO PRN ×3 (04:25→22:48)
[2017-10-18] MEDS: *HR* FentaNYL (PF) 100 MCG/2 ML VIAL IVP PRN (04:25)
[2017-10-18 04:41] LABS: BUN/Creatinine Ratio 25 (6-26); Blood Urea Nitrogen 22 mg/dL (8-23); Calcium 8.4 mg/dL (8.6-10.3); Carbon Dioxide 27 mEq/L (23-29); Chloride 105 mEq/L (98-107); Glucose 175 mg/dL (70-105); Osmolality,Calculated 294 (280-300); Potassium 4.1 mEq/L (3.5-5.1); Sodium 138 mEq/L (136-145); eGFR For African Americans > 60 (> 60); eGFR For Non-African Americans > 60 (> 60)
[2017-10-18] MEDS: Levothyroxine 25 MCG TABLET PO SCH (06:41)
[2017-10-18] MEDS: *HR* Heparin 5,000 UNIT/ML VIAL SQ SCH ×2 (06:41→17:36)
[2017-10-18] MEDS: clonazePAM 1 MG TABLET PO SCH ×2 (08:42→20:10)
[2017-10-18] MEDS: Aspirin Enteric Coated 81 MG Tablet PO SCH (08:42)
[2017-10-18] MEDS: *HR* Glimepiride 4 MG TABLET PO SCH ×2 (08:42→17:35)
[2017-10-18] MEDS: Pantoprazole 40 MG VIAL IVP SCH (08:43)
[2017-10-18] MEDS: Furosemide 20 MG/2 ML VIAL IVP SCH ×2 (08:43→20:09)
[2017-10-18] MEDS: Chlorhexidine Rinse 15 ML MOUTHWASH MM SCH ×2 (08:43→20:09)
--- NOTE | 2017-10-18 08:47 | Cardiothoracic Progress Note ---
Date of Encounter: 10/18/17 Time of Encounter: 08:45 - Assessment and plan (1) CAD (coronary artery disease) Current Visit: Yes Status: Chronic The patient is doing well after her CABG 3. She has no complaints. The chest tubes were removed. She will be transferred to the stepdown unit when a bed is available area The assessment and plan as outlined above was discussed with the patient and/or family members who expressed understanding and agreement. All questions were answered. Qualifiers: Coronary Disease-Associated Artery/Lesion type: [place] artery [place] vs. transplanted heart: [place] heart Associated angina: without angina Qualified Code(s): I25.10 - Atherosclerotic heart disease of [place] coronary artery without angina pectoris - Subjective Procedure(s) Performed: POD#2 S/P CABG3 Interval history: The patient remained hemodynamically stable overnight. She is breathing comfortably. She has no complaints. Vital Signs, Last 4 Hours Temp Pulse Resp BP Pulse Ox 10/18/17 08:02 16 95 10/18/17 07:57 87 10/18/17 07:55 97.7 F 96 18 106/66 94 10/18/17 06:00 96 20 110/59 95 10/18/17 04:53 100 F H Oxgyen Flow Rate Oxygen Flow Rate (LPM) 6 Clinical Data, last 8 Hours Output, Chest Tube Drainage 6 Amount [Mediastinal #2] Output, Chest Tube Drainage 20 Amount [Mediastinal #2] Output, Chest Tube Drainage 20 Amount [Mediastinal #2] Output, Chest Tube Drainage 10 Amount [Mediastinal #1] Output, Chest Tube Drainage 70 Amount [Mediastinal #1] Output, Chest Tube Drainage 70 Amount [Mediastinal #1] Output, Urine Amount 225 Weight 10/16/17 10/17/17 10/18/17 23:59 23:59 23:59 Weight 77.467 kg 81.6 kg - Physical Examination General: Conversant, No Apparent Distress Neck: No JVD, Normal carotid pulses Cardiac: Reg Rate and Rhythm, Normal S1 and S2, No Murmur Incision: No signs of infection, Dry/intact dressing Sternum: Stable Chest tubes: Minimal drainage, Other (No air leak) Pacing Wires: In place Lungs: Normal Breath Sounds, No Wheeze, Rales, Rhonchi Neuro: Alert and responsive, No focal deficits noted Vascular: Normal capillary refill Extremities: No Clubbing, No Cyanosis, No Edema - Labs 10/18/17 03:55 10/18/17 03:55 Lab Results, Last 24 hours 10/18/17 10/18/17 03:55 03:55 WBC 12.8 H Hgb 8.2 L Hct 25.5 L Plt Count 155 Sodium 138 Potassium 4.1 Chloride 105 Carbon Dioxide 27 BUN 22 Creatinine 0.89 Glucose 175 H Calcium 8.4 L - Imaging Chest Xray: image reviewed (No pneumothorax. Minimal atelectasis/infiltrates.) - VTE Documentation of Mechanical Device: Graduated compression elastic hosiery Consult Discharge Plan - Plan Referrals: Livia Hale, SHAPER SET UP OPERATOR [Primary Care Provider] -
[2017-10-18] MEDS: Insulin LISPRO 300 UNITS/3 ML VIAL SQ SCH ×4 (09:31→20:29)
[2017-10-18] MEDS: Insulin DETEMIR 100 UNIT/ML X5UNITS SQ SCH (12:20)
[2017-10-19 04:18] LABS: Basophils % 0.2 %; Eosinophils # 0.3 K/mcL (0.0-0.6); Eosinophils % 2.7 %; Hematocrit 23.6 % (35.3-44.9); Hemoglobin 7.4 g/dL (11.5-15.4); Immature Granulocytes % 0.6 % (0-4); Lymphocytes # 2.4 K/mcL (0.6-4.6); Lymphocytes % 24.2 %; Mean Corpuscular HGB Conc 31.4 g/dL (31.6-35.5); Mean Corpuscular Hemoglobin 30.3 pg (28.0-33.3); Mean Corpuscular Volume 96.7 fL (83.0-100.0); Monocytes # 0.9 K/mcL (0.0-1.3); Monocytes % 8.7 %; Neutrophils # 6.4 K/mcL (1.6-8.9); Platelet Count 141 K/mcL (140-400); Red Blood Count 2.44 M/mcL (3.82-4.97); Red Cell Distribution Width 13.2 % (11.5-14.5); Segmented Neutrophils % 63.6 %
[2017-10-19 04:35] LABS: BUN/Creatinine Ratio 29 (6-26); Blood Urea Nitrogen 21 mg/dL (8-23); Calcium 8.7 mg/dL (8.6-10.3); Carbon Dioxide 30 mEq/L (23-29); Chloride 104 mEq/L (98-107); Glucose 127 mg/dL (70-105); Osmolality,Calculated 291 (280-300); Potassium 4.3 mEq/L (3.5-5.1); Sodium 138 mEq/L (136-145); eGFR For African Americans > 60 (> 60); eGFR For Non-African Americans > 60 (> 60)
[2017-10-19] MEDS: Ketorolac 15 MG/ML VIAL IVP SCH ×4 (05:52→23:42)
[2017-10-19] MEDS: Metoclopramide 10 MG/2 ML VIAL IVP SCH ×2 (05:52→13:02)
[2017-10-19] MEDS: Levothyroxine 25 MCG TABLET PO SCH (05:52)
[2017-10-19] MEDS: *HR* Heparin 5,000 UNIT/ML VIAL SQ SCH ×2 (05:52→17:01)
--- NOTE | 2017-10-19 07:24 | Cardiothoracic Progress Note ---
Date of Encounter: 10/19/17 Time of Encounter: 07:22 - Assessment and plan (1) CAD (coronary artery disease) Current Visit: Yes Status: Chronic The patient is doing well after her CABG 3. She has no complaints. She will again ambulating the hallways today. The assessment and plan as outlined above was discussed with the patient and/or family members who expressed understanding and agreement. All questions were answered. Qualifiers: Coronary Disease-Associated Artery/Lesion type: [place] artery [place] vs. transplanted heart: [place] heart Associated angina: without angina Qualified Code(s): I25.10 - Atherosclerotic heart disease of [place] coronary artery without angina pectoris - Subjective Procedure(s) Performed: POD#3 S/P CABG3 Interval history: The patient remained hemodynamically stable overnight. She is breathing comfortably. She has no complaints. Vital Signs, Last 4 Hours Temp Pulse Resp BP Pulse Ox 10/19/17 07:16 18 94 10/19/17 04:56 98.1 F 98 20 125/65 94 Oxgyen Flow Rate Oxygen Flow Rate (LPM) 5 Weight 10/17/17 10/18/17 10/19/17 23:59 23:59 23:59 Weight 81.6 kg 81.3 kg - Physical Examination General: Conversant, No Apparent Distress Neck: No JVD, Normal carotid pulses Cardiac: Reg Rate and Rhythm, Normal S1 and S2, No Murmur Incision: No signs of infection, Dry/intact dressing Sternum: Stable Pacing Wires: In place Lungs: Normal Breath Sounds, No Wheeze, Rales, Rhonchi Neuro: Alert and responsive, No focal deficits noted Vascular: Normal capillary refill Extremities: No Clubbing, No Cyanosis, No Edema - Labs 10/19/17 03:37 10/19/17 03:37 Lab Results, Last 24 hours 10/19/17 10/19/17 03:37 03:37 WBC 10.0 Hgb 7.4 L Hct 23.6 L Plt Count 141 Sodium 138 Potassium 4.3 Chloride 104 Carbon Dioxide 30 H BUN 21 Creatinine 0.73 Glucose 127 H Calcium 8.7 - VTE Documentation of Mechanical Device: Graduated compression elastic hosiery Consult Discharge Plan - Plan Referrals: Livia Hale, LOCK INSTALLER [Primary Care Provider] -
[2017-10-19] MEDS: *HR* OxyCODONE/APAP 10/325 TABLET PO PRN (07:59)
[2017-10-19] MEDS: clonazePAM 1 MG TABLET PO SCH ×2 (08:02→20:21)
[2017-10-19] MEDS: *HR* Glimepiride 4 MG TABLET PO SCH ×2 (08:03→17:02)
[2017-10-19] MEDS: Pantoprazole 40 MG VIAL IVP SCH (08:03)
[2017-10-19] MEDS: Chlorhexidine Rinse 15 ML MOUTHWASH MM SCH ×2 (08:03→20:21)
[2017-10-19] MEDS: Aspirin Enteric Coated 81 MG Tablet PO SCH (08:03)
[2017-10-19] MEDS: Furosemide 20 MG/2 ML VIAL IVP SCH ×2 (08:04→20:23)
[2017-10-19] MEDS: Insulin LISPRO 300 UNITS/3 ML VIAL SQ SCH ×4 (08:08→20:18)
[2017-10-19] MEDS: Insulin DETEMIR 100 UNIT/ML X5UNITS SQ SCH (13:02)
[2017-10-19] MEDS: *HR* OxyCODONE/APAP 5/325 TABLET PO PRN ×2 (13:09→20:22)
--- NOTE | 2017-10-19 14:32 | Internal Med Progress Note ---
Date of Encounter: 10/18/17 Time of Encounter: 14:32 - Assessment and plan (1) CAD (coronary artery disease) Current Visit: Yes Status: Chronic Assessment and plan: History of PCI in 2002. She reported undergoing multiple LHC since that time. Last LHC in 2010 showed minimal CAD with patent pRCA stent. EF 65%. Continue asa and bb. Not on statin therapy due to myalgias. Qualifiers: Coronary Disease-Associated Artery/Lesion type: [place] artery [place] vs. transplanted heart: [place] heart Associated angina: without angina Qualified Code(s): I25.10 - Atherosclerotic heart disease of [place] coronary artery without angina pectoris (2) HLD (hyperlipidemia) Current Visit: Yes Status: Acute Assessment and plan: Patient is Intolerant of statin therapy Qualifiers: Hyperlipidemia type: pure hypercholesterolemia Qualified Code(s): E78.00 - Pure hypercholesterolemia, unspecified; E78.0 - Pure hypercholesterolemia (3) NSTEMI (non-ST elevated myocardial infarction) Current Visit: Yes Status: Acute Assessment and plan: Mild troponin elevation 0.07, 0.07, 0.06. EKG with mild ST depression in the inferior leads Symptoms and findings concerning for unstable angina/ NSTEMI. Cardiology discussed the need for a heart catheter on Sunday. She agrees to proceed. Cardiac cath report reviewed there is severe three-vessel coronary artery disease, occluded mid RCA receives collaterals from the LCA, severe proximal LAD , severe distal circumflex, occluded OM1 Recommendations our CABG versus complex PCI Cardiothoracic surgery is consulted Await surgery input for further plan Echocardiogram completed Continue heparin gtt. ASA and bb. No statin due to myalgias. 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 - Constitutional Vitals: Temp Pulse Resp BP Pulse Ox 99.9 F H 77 20 111/61 95 10/19/17 11:19 10/19/17 11:19 10/19/17 11:19 10/19/17 11:19 10/19/17 11:19 General appearance: Present: cooperative, A&O X 3, pleasant, no acute distress, answers questions appropriately - Head Head exam: Present: atraumatic, normocephalic - Eye Eye exam: Present: PERRL, conjuntiva pink, sclera anicteric Pupils: Present: PERRL - Neck Neck exam general surgery: Present: supple, trachea midline. Absent: lymphadenopathy - Respiratory Respiratory exam: Present: CTAB. Absent: accessory muscle use, rales, rhonchi, wheezes - Cardiovascular Cardiovascular exam: Present: RRR, +S1, +S2. Absent: diastolic murmur, gallop, rubs, systolic murmur - GI/Abdominal GI/Abdominal exam: Present: normal bowel sounds, soft, no peritoneal signs. Absent: distended, tenderness - Extremities Exam Extremities exam: Present: warm, radial pulses palpable and symmetrical. Absent : calf tenderness, cyanotic, pedal edema - Neurological Exam Neurological exam: Present: CN II-XII intact, oriented X3, no focal deficits. Absent: pronater drift, facial droop, speech deficit - Skin Skin exam: Present: dry, intact Additional comments: Surgical sternal incision c/d/i Internal Medicine: Result - Labs CBC & Chem 7: 10/19/17 15:01 10/19/17 03:37 Labs: Short CBC 10/19/17 Range/Units 03:37 WBC 10.0 (4.3-11.1) K/mcL Hgb 7.4 L (11.5-15.4) g/dL Hct 23.6 L (35.3-44.9) % Plt Count 141 (140-400) K/mcL Neutrophils # 6.4 (1.6-8.9) K/mcL BMP 10/19/17 03:37 Sodium 138 Potassium 4.3 Chloride 104 Carbon Dioxide 30 H BUN 21 Creatinine 0.73 Glucose 127 H Calcium 8.7 - ABG Interpretation ABG results: ABG ABG pH 7.39 pH Units (7.32-7.45) 10/16/17 23:37 ABG pCO2 46 mmHg (35-45) H 10/16/17 23:37 ABG pO2 77 mmHg (85-104) L 10/16/17 23:37 ABG O2 Saturation 95 % (95-98) 10/16/17 23:37 PT/INR, D-dimer PT 14.0 Seconds (9.4-12.1) H 10/17/17 03:00 - VTE Documentation of Mechanical Device: Graduated compression elastic hosiery Consult Discharge Plan - Plan Referrals: Jair Bates MD [Partnered Physician] - (CARDIOLOGY OFFICE WILL CALL PATIENT AT HOME WITH FOLLOW UP APPOINTMENT) Joanna Raphael MD [Partnered Physician] - 11/08/17 2:20 pm iLvia Hale CNP [Primary Care Provider] - 10/29/17 1:00 pm
--- NOTE | 2017-10-19 14:35 | Internal Med Progress Note ---
Date of Encounter: 10/19/17 Time of Encounter: 14:32 - Assessment and plan (1) Status post coronary artery bypass graft Current Visit: Yes Status: Acute Assessment and plan: Managed per Cardiothoracic Surgery (2) NSTEMI (non-ST elevated myocardial infarction) Current Visit: Yes Status: Acute Assessment and plan: Mild troponin elevation 0.07, 0.07, 0.06. EKG with mild ST depression in the inferior leads Symptoms and findings concerning for unstable angina/ NSTEMI. Cardiology discussed the need for a heart catheter on Sunday. She agrees to proceed. Cardiac cath report reviewed there is severe three-vessel coronary artery disease, occluded mid RCA receives collaterals from the LCA, severe proximal LAD , severe distal circumflex, occluded OM1 Recommendations our CABG versus complex PCI Cardiothoracic surgery is consulted Await surgery input for further plan Echocardiogram completed Continue heparin gtt. ASA and bb. No statin due to myalgias. (3) Anemia Current Visit: Yes Status: Acute Assessment and plan: Hemoglobin today is 7.4. Reached 7.7 and then improved to 8.3. No signs of acute bleed at this time. Hemodynamically stable. Baseline is 13 prior to admission Check FOBT Recheck H&H today afternoon. Will discuss transfusion if needed. add multivitamin Qualifiers: Anemia type: unspecified type Qualified Code(s): D64.9 - Anemia, unspecified (4) HLD (hyperlipidemia) Current Visit: Yes Status: Acute Assessment and plan: Patient is Intolerant of statin therapy Qualifiers: Hyperlipidemia type: pure hypercholesterolemia Qualified Code(s): E78.00 - Pure hypercholesterolemia, unspecified; E78.0 - Pure hypercholesterolemia (5) CAD (coronary artery disease) Current Visit: Yes Status: Chronic Assessment and plan: History of PCI in 2002. She reported undergoing multiple LHC since that time. Last LHC in 2010 showed minimal CAD with patent pRCA stent. EF 65%. Continue asa and bb. Not on statin therapy due to myalgias. Qualifiers: Coronary Disease-Associated Artery/Lesion type: [place] artery [place] vs. 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 insulin use: with terminal clerk use Qualified Code(s): E11.9 - Type 2 diabetes mellitus without complications ; Z79.4 - intermediate frame tender (current) use of insulin; Z79.4 - assisted (current) use of insulin; Z79.4 - intermediate frame tender (current) use of insulin; Z79.4 - assisted ( current) use of insulin (7) DVT prophylaxis Current Visit: Yes Status: Acute Assessment and plan: Heparin drip per cardiology - Constitutional Vitals: Temp Pulse Resp BP Pulse Ox 99.9 F H 77 20 111/61 95 10/19/17 11:19 10/19/17 11:19 10/19/17 11:19 10/19/17 11:19 10/19/17 11:19 General appearance: Present: cooperative, A&O X 3, pleasant, no acute distress, answers questions appropriately Internal Medicine: Result - Labs CBC & Chem 7: 10/19/17 03:37 10/19/17 03:37 Labs: Short CBC 10/19/17 Range/Units 03:37 WBC 10.0 (4.3-11.1) K/mcL Hgb 7.4 L (11.5-15.4) g/dL Hct 23.6 L (35.3-44.9) % Plt Count 141 (140-400) K/mcL Neutrophils # 6.4 (1.6-8.9) K/mcL BMP 10/19/17 03:37 Sodium 138 Potassium 4.3 Chloride 104 Carbon Dioxide 30 H BUN 21 Creatinine 0.73 Glucose 127 H Calcium 8.7 - ABG Interpretation ABG results: ABG ABG pH 7.39 pH Units (7.32-7.45) 10/16/17 23:37 ABG pCO2 46 mmHg (35-45) H 10/16/17 23:37 ABG pO2 77 mmHg (85-104) L 10/16/17 23:37 ABG O2 Saturation 95 % (95-98) 10/16/17 23:37 PT/INR, D-dimer PT 14.0 Seconds (9.4-12.1) H 10/17/17 03:00 - VTE Documentation of Mechanical Device: Graduated compression elastic hosiery Consult Discharge Plan - Plan Referrals: Jair Bates MD [Partnered Physician] - (CARDIOLOGY OFFICE WILL CALL PATIENT AT HOME WITH FOLLOW UP APPOINTMENT) Joanna Raphael MD [Partnered Physician] - 11/08/17 2:20 pm Livia Hale CNP [Primary Care Provider] - 10/29/17 1:00 pm
[2017-10-19 15:38] LABS: Hematocrit 23.4 % (35.3-44.9); Hemoglobin 7.3 g/dL (11.5-15.4)
[2017-10-20] MEDS: *HR* OxyCODONE/APAP 5/325 TABLET PO PRN ×3 (03:46→20:13)
[2017-10-20 04:11] LABS: Basophils % 0.3 %; Eosinophils # 0.2 K/mcL (0.0-0.6); Hematocrit 19.4 % (35.3-44.9); Immature Granulocytes % 0.6 % (0-4); Lymphocytes # 1.6 K/mcL (0.6-4.6); Lymphocytes % 22.1 %; Mean Corpuscular HGB Conc 30.9 g/dL (31.6-35.5); Mean Corpuscular Hemoglobin 30.2 pg (28.0-33.3); Mean Corpuscular Volume 97.5 fL (83.0-100.0); Mean Platelet Volume 10.7 fL (9.4-12.4); Monocytes # 0.6 K/mcL (0.0-1.3); Monocytes % 8.8 %; Neutrophils # 4.6 K/mcL (1.6-8.9); Nucleated Red Blood Cells 0.3 /100 WBC (0); Platelet Count 155 K/mcL (140-400); Red Blood Count 1.99 M/mcL (3.82-4.97); Red Cell Distribution Width 13.4 % (11.5-14.5); Segmented Neutrophils % 65.2 %
[2017-10-20] MEDS ORDERED: 0.9 % Sodium Chloride 250 ML ONE (04:53)
[2017-10-20 04:54] LABS: BUN/Creatinine Ratio 25 (6-26); Blood Urea Nitrogen 18 mg/dL (8-23); Calcium 8.6 mg/dL (8.6-10.3); Carbon Dioxide 27 mEq/L (23-29); Chloride 105 mEq/L (98-107); Glucose 120 mg/dL (70-105); Osmolality,Calculated 291 (280-300); Potassium 3.9 mEq/L (3.5-5.1); Sodium 139 mEq/L (136-145); eGFR For African Americans > 60 (> 60); eGFR For Non-African Americans > 60 (> 60)
[2017-10-20] MEDS: *HR* Heparin 5,000 UNIT/ML VIAL SQ SCH ×2 (05:16→17:31)
[2017-10-20] MEDS: Ketorolac 15 MG/ML VIAL IVP SCH ×4 (05:16→23:28)
[2017-10-20] MEDS: Levothyroxine 25 MCG TABLET PO SCH (05:16)
[2017-10-20] MEDS: *HR* Glimepiride 4 MG TABLET PO SCH ×2 (08:15→17:23)
[2017-10-20] MEDS: Aspirin Enteric Coated 81 MG Tablet PO SCH (08:15)
[2017-10-20] MEDS: clonazePAM 1 MG TABLET PO SCH ×2 (08:15→20:11)
[2017-10-20] MEDS: Multivit/Ca/Min/Fe/FA 1 TAB TABLET PO SCH (08:16)
[2017-10-20] MEDS: Chlorhexidine Rinse 15 ML MOUTHWASH MM SCH ×2 (08:17→20:11)
[2017-10-20] MEDS: Pantoprazole 40 MG VIAL IVP SCH (08:25)
[2017-10-20] MEDS: Insulin LISPRO 300 UNITS/3 ML VIAL SQ SCH ×4 (08:25→20:10)
--- NOTE | 2017-10-20 09:49 | Cardiothoracic Progress Note ---
Date of Encounter: 10/20/17 Time of Encounter: 09:47 - Assessment and plan (1) CAD (coronary artery disease) Current Visit: Yes Status: Chronic The patient is doing well after her CABG 3. She has no complaints. She received 2U PRBCs for a low H/H this a.m. She will continue ambulating the hallways today. The assessment and plan as outlined above was discussed with the patient and/or family members who expressed understanding and agreement. All questions were answered. Qualifiers: Coronary Disease-Associated Artery/Lesion type: [place] artery [place] vs. transplanted heart: [place] heart Associated angina: without angina Qualified Code(s): I25.10 - Atherosclerotic heart disease of [place] coronary artery without angina pectoris - Subjective Procedure(s) Performed: POD#4 S/P CABG3 Interval history: The patient remained hemodynamically stable overnight. She is breathing comfortably. She has no complaints. Vital Signs, Last 4 Hours Temp Pulse Resp BP Pulse Ox 10/20/17 08:15 97.8 F 76 20 113/59 97 10/20/17 08:10 75 10/20/17 07:27 16 95 10/20/17 07:08 97.6 F 77 16 110/55 97 [place] Flow Rate Oxygen Flow Rate (LPM) 2 Weight 10/18/17 10/19/17 10/20/17 23:59 23:59 23:59 Weight 81.6 kg 81.3 kg - Physical Examination General: Conversant, No Apparent Distress Neck: No JVD, Normal carotid pulses Cardiac: Reg Rate and Rhythm, Normal S1 and S2, No Murmur Incision: No signs of infection, Dry/intact dressing Sternum: Stable Pacing Wires: In place Lungs: Normal Breath Sounds, No Wheeze, Rales, Rhonchi Neuro: Alert and responsive, No focal deficits noted Vascular: Normal capillary refill Extremities: No Clubbing, No Cyanosis, No Edema - Labs 10/20/17 03:40 10/20/17 03:40 Lab Results, Last 24 hours 10/19/17 10/20/17 10/20/17 15:01 03:40 03:40 WBC 7.0 Hgb 7.3 L 6.0 L* Hct 23.4 L 19.4 L Plt Count 155 Sodium 139 Potassium 3.9 Chloride 105 Carbon Dioxide 27 BUN 18 Creatinine 0.73 Glucose 120 H Calcium 8.6 - VTE Documentation of Mechanical Device: Graduated compression elastic hosiery Consult Discharge Plan - Plan Referrals: Jair Bates MD [Partnered Physician] - (CARDIOLOGY OFFICE WILL CALL PATIENT AT HOME WITH FOLLOW UP APPOINTMENT) Joanna Raphael MD [Partnered Physician] - 11/08/17 2:20 pm Livia Hale CNP [Primary Care Provider] - 10/29/17 1:00 pm
[2017-10-20] MEDS: Insulin DETEMIR 100 UNIT/ML X5UNITS SQ SCH (11:45)
[2017-10-20] MEDS: *HR* OxyCODONE/APAP 10/325 TABLET PO PRN (23:28)
[2017-10-21 04:18] LABS: Basophils % 0.5 %; Eosinophils # 0.4 K/mcL (0.0-0.6); Eosinophils % 4.9 %; Hematocrit 32.9 % (35.3-44.9); Immature Granulocytes % 0.6 % (0-4); Lymphocytes # 2.1 K/mcL (0.6-4.6); Lymphocytes % 26.6 %; Mean Corpuscular HGB Conc 32.8 g/dL (31.6-35.5); Mean Corpuscular Hemoglobin 30.2 pg (28.0-33.3); Mean Corpuscular Volume 91.9 fL (83.0-100.0); Mean Platelet Volume 10.2 fL (9.4-12.4); Monocytes # 0.8 K/mcL (0.0-1.3); Monocytes % 9.4 %; Neutrophils # 4.7 K/mcL (1.6-8.9); Platelet Count 179 K/mcL (140-400); Red Blood Count 3.58 M/mcL (3.82-4.97); Red Cell Distribution Width 15.6 % (11.5-14.5)
[2017-10-21 04:20] LABS: Hemoglobin 10.8 g/dL (11.5-15.4)
[2017-10-21 04:36] LABS: BUN/Creatinine Ratio 24 (6-26); Blood Urea Nitrogen 17 mg/dL (8-23); Carbon Dioxide 29 mEq/L (23-29); Chloride 107 mEq/L (98-107); Glucose 70 mg/dL (70-105); Osmolality,Calculated 292 (280-300); Potassium 3.7 mEq/L (3.5-5.1); Sodium 141 mEq/L (136-145); eGFR For African Americans > 60 (> 60); eGFR For Non-African Americans > 60 (> 60)
[2017-10-21] MEDS: Levothyroxine 25 MCG TABLET PO SCH (05:37)
[2017-10-21] MEDS: Ketorolac 15 MG/ML VIAL IVP SCH (05:38)
[2017-10-21] MEDS: *HR* Heparin 5,000 UNIT/ML VIAL SQ SCH (05:38)
[2017-10-21] MEDS: clonazePAM 1 MG TABLET PO SCH (07:48)
[2017-10-21] MEDS: *HR* Glimepiride 4 MG TABLET PO SCH (07:48)
[2017-10-21] MEDS: Multivit/Ca/Min/Fe/FA 1 TAB TABLET PO SCH (07:48)
[2017-10-21] MEDS: Aspirin Enteric Coated 81 MG Tablet PO SCH (07:48)
[2017-10-21] MEDS: Pantoprazole 40 MG VIAL IVP SCH (07:49)
[2017-10-21] MEDS: Chlorhexidine Rinse 15 ML MOUTHWASH MM SCH (07:49)
--- NOTE | 2017-10-21 07:56 | Discharge Summary ---
Date of Encounter: 10/21/17 Time of Encounter: 07:56 - Discharge Diagnosis (1) CAD (coronary artery disease) Priority: Primary Status: Chronic Qualifiers: Coronary Disease-Associated Artery/Lesion type: [place] artery [place] vs. transplanted heart: [place] heart Associated angina: without angina Qualified Code(s): I25.10 - Atherosclerotic heart disease of [place] coronary artery without angina pectoris - Discharge Medications Prescriptions: Metoprolol [Lopressor] 25 mg PO BID #60 tablet Oxycodone HCl/Acetaminophen [Percocet 5-325 mg Tablet] 1 each PO Q4H 7 Days #42 tablet Home Medications: Aspirin Enteric Coated [Aspirin EC] 81 mg PO DAILY 10/12/17 [History] Dulaglutide [Trulicity] 0.75 mg SQ TU@1200 10/12/17 [History] Escitalopram [Lexapro] 20 mg PO DAILY 10/12/17 [History] Glimepiride [Amaryl] 4 mg PO BID 10/12/17 [History] Insulin Glargine,Hum.rec.anlog [Basaglanthony Collier U-100] 28 unit SQ 1200 [History] Levothyroxine [Synthroid] 25 mcg PO 0630 10/12/17 [History] Pantoprazole Sodium [Protonix] 40 mg PO DAILY PRN 10/12/17 [History] Simvastatin [Zocor] 10 mg PO HS 10/12/17 [History] clonazePAM [Klonopin] 1 mg PO BID 10/12/17 [History] Metoprolol [Lopressor] 25 mg PO BID #60 tablet 10/21/17 [Rx] OxyCODONE/APAP 5/325 [Percocet 5/325 MG] 1 each PO Q4HR PRN 7 Days #42 tablet [Rx] Oxycodone HCl/Acetaminophen [Percocet 5-325 mg Tablet] 1 each PO Q4H 7 Days #42 tablet 10/21/17 [Rx] Allergies/Adverse Reactions: 3 Allergy/AdvReac Type Severity Reaction Status Date / Time morphine Allergy Anaphylaxis Verified 10/12/17 14:36 Date of admission: 10/13/17 12:12 Primary care physician: Livia Hale CNP Consults: 10/15/17 15:39 Consult to Cardiothoracic Surgery [CONS] Routine Consulting Provider: Cardiothoracic Surgery [place] Reason for Consult: Severe three vessel CAD Call Completed: Yes 10/16/17 11:58 Consult to Cardiac Rehabilitation-Phase1 [CONS] Routine Comment: Reason for Consult: Post open heart Call Completed: Yes Procedure(s) Performed: 1. Cardiac catherization performed October 15, 2017. 2. CABG 3 (RAMRIES to LAD, SVG to OM 2, SVG to distal RCA) performed October 16, 2017. 3. Endoscopic vein harvesting, greater saphenous vein from right lower extremity performed October 16, 2017. Discharging clinician: Joanna Raphael Anticipated date of discharge: 10/21/17 - Patient Status Disposition: Home, Self-Care Condition: Fair Functional capacity at discharge: independent ambulation Overall status at discharge: patient is progressing back to baseline - Discharge Instructions Follow Up With: Jair Bates MD [Partnered Physician] - (CARDIOLOGY OFFICE WILL CALL PATIENT AT HOME WITH FOLLOW UP APPOINTMENT) Joanna Raphael MD [Partnered Physician] - 11/08/17 2:20 pm Livia Hale CNP [Primary Care Provider] - 10/29/17 1:00 pm - Diet and Activity Activity: sternal precautions, no driving for four weeks, no lifting greater than 10 pounds for eight weeks Diet: diabetic diet - Hospital Course Hospital course: Ms. Gonzalez is a 62 year old type II diabetic lady with known CAD and hypercholesterolemia. Her cardiac history dates back to 2002 which time she underwent percutaneous catheter intervention and stent placement. She did well until Wednesday, October 12, 2016 when she had sudden onset of substernal chest pain radiating from her left shoulder to her right shoulder. This was associated with shortness of breath and dyspnea on exertion the patient was evaluated at [facility] emergency department. The patient was found to have elevated troponin I levels consistent with an acute NSTEMI. She was admitted for further cardiac care. The patient underwent cardiac catheterization yesterday and was found to have severe 3 vessel CAD and LVEF 50-60%. In particular the patient has a 70% proximal LAD lesion, completely occluded proximal OM1 branch, and a completely occluded proximal RCA. She has been recommended for CABG. She underwent CABG x 4 on October 16, 2017. Her postoperative course was uncomplicated. The patient was ambulating without difficulty. She was discharged home on POD#6. - Time Spent with Patient Total time spent providing and/or coordinating discharge services: Physical Examination General: Conversant, No Apparent Distress HEENT: Atraumatic, Normocephaly, Trachea midline Neck: No JVD, Normal carotid pulses Cardiac: Reg Rate and Rhythm, Normal S1 and S2, No Murmur Lungs: Normal Breath Sounds, No Wheeze, Rales, Rhonchi Neuro: Alert and responsive, No focal deficits noted Vascular: Normal capillary refill Abdomen: Soft, Non-tender Skin: No rashes noted on visualized skin Extremities: No Clubbing, No Cyanosis, No Edema Open Heart Registry Aspirin Cont/Prescribed at DC: Yes Beta Veda Cont/Prescribed at DC: Yes Statin Cont/Prescribed at DC: Yes MASSIEL/ARB Cont/Prescribed at DC: Not indicated (LVEF>50%) - VTE Documentation of Mechanical Device: Graduated compression elastic hosiery
[2017-10-21] MEDS: Insulin LISPRO 300 UNITS/3 ML VIAL SQ SCH (08:05)
[2017-10-21 09:13] VITALS: BP 122/71
[2017-10-21] MEDS: *HR* OxyCODONE/APAP 5/325 TABLET PO PRN (11:11)
[2017-10-21] MEDS: Insulin DETEMIR 100 UNIT/ML X5UNITS SQ SCH (11:12)
[2017-10-23] MEDS ORDERED: (Dulaglutide [Trulicity] 0.75 MG) SQ SCH (12:00)
== END 2017-10-21 11:45 | disposition home or self-care (01) | DRG 165 ==
LOC: EMEROO 14:09 → 3BNU 14:09 → ICNU 10-16 08:43 → 2NNU 10-18 17:31
PROVIDERS: ADMIT Internal Medicine; ATTEND Thoracic Surgery (Cardiothoracic Vascular Surgery)

== ENCOUNTER 2018-05-24 15:08 | Observation (INO) ==
[2018-05-24] MEDS ORDERED: Aspirin 81 MG TAB.CHEW PO ONE (15:29)
--- NOTE | 2018-05-24 15:30 | Emergency Department Note ---
Disposition Clinical Impression: ACS (acute coronary syndrome) Disposition: Admitted As Inpatient Condition: Good Time of Disposition: 18:14 General Adult HPI - General Chief complaint: ED Chest Pain Stated complaint: CP Time Seen by Provider: 05/24/18 15:29 Source: patient, family Mode of arrival: ambulatory Limitations: no limitations Nursing Notes Reviewed: Yes Vital Signs Reviewed: Yes - History of Present Illness HPI Narrative: Female patient presenting to the emergency department complaining of chest pain. She states it started earlier today while she was hanging up the laundry. She states this was a very center strenuous. He has a recent history of CABG in October. This is 8 months ago. Patient states that this pain is different than whenever she had her CA previously. She states that she does currently take aspirin she is not on any other type of anticoagulant. She denies any shortness of breath associated with this. She denies any diaphoresis or nausea or vomiting. Pain is an aching sensation in the center of her chest. No provoking factors. It did decrease whenever she used 2 nitroglycerin at home. She attempted to lay down this did not help relieve it. No radiation of the pain. - Related Data Home Medications Medication Instructions Recorded Confirmed Aspirin Enteric Coated [Aspirin EC] 81 mg PO DAILY 10/12/17 10/12/17 Dulaglutide [Trulicity] 0.75 mg SQ TU@1200 10/12/17 10/12/17 Escitalopram [Lexapro] 20 mg PO DAILY 10/12/17 10/12/17 Glimepiride [Amaryl] 4 mg PO BID 10/12/17 10/12/17 Insulin Glargine,Hum.rec.anlog 28 unit SQ 1200 10/12/17 10/12/17 [Basaglar Kwikpen U-100] Levothyroxine [Synthroid] 25 mcg PO 0630 10/12/17 10/12/17 Pantoprazole Sodium [Protonix] 40 mg PO DAILY PRN 10/12/17 10/12/17 Simvastatin [Zocor] 10 mg PO HS 10/12/17 10/12/17 clonazePAM [Klonopin] 1 mg PO BID 10/12/17 10/12/17 Previous Rx's Medication Instructions Recorded Metoprolol [Lopressor] 25 mg PO BID #60 tablet 10/21/17 OxyCODONE/APAP 5/325 [Percocet 1 each PO Q4HR PRN 7 Days #42 10/21/17 5/325 MG] tablet Oxycodone HCl/Acetaminophen 1 each PO Q4H 7 Days #42 tablet 10/21/17 [Percocet 5-325 mg Tablet] Allergies Allergy/AdvReac Type Severity Reaction Status Date / Time morphine Allergy Anaphylaxis Verified 10/12/17 14:36 All systems ED: reviewed and negative except as stated. Review of Systems: As Per HPI Constitutional: Denies: fever, chills Cardiovascular: Reports: chest pain. Denies: palpitations, syncope Respiratory: Denies: cough, dyspnea Gastrointestinal: Denies: abdominal pain, nausea, vomiting, diarrhea, hematemesis, melena, hematochezia Integumentary: Denies: rash Neurological: Denies: headache Past Medical History - Past Medical History Attestation: Yes The following information was validated with the patient. Source: patient Medical history: Reports: CHF, coronary artery disease, diabetes, myocardial infarction, thyroid disease Surgical history: Reports: cholecystectomy, hysterectomy, thyroidectomy, other Psychiatric history: Reports: anxiety COORDINATING PRODUCER history: Reports: no COORDINATING PRODUCER history - Social History Smoking Status: Never smoker Smokeless Tobacco Status: No Alcohol use: Reports: none Drug use: Reports: none Physical Exam - General Limitations: no limitations General appearance: alert, in no apparent distress - Head Head exam: atraumatic, normocephalic, normal inspection - Eye Eye exam: Present: normal appearance, PERRL, EOMI - ENT ENT exam: normal exam, normal oropharynx, mucous membranes moist - Neck Neck exam: Present: normal inspection, full ROM, trachea midline - Chest Chest inspection: Present: symmetric chest wall rise, tenderness (To palpation over sternum. States that this is painful however it is not reproducing the pain that she is on the inside of her chest.), other (Well-healed scar to the midline) - Respiratory Respiratory exam: Present: normal lung sounds bilaterally. Absent: respiratory distress, accessory muscle use - Cardiovascular Cardiovascular exam: Present: regular rate, normal rhythm, normal heart sounds - Abdominal Exam Abdominal exam: Present: soft, Non-Tender. Absent: tenderness, distention, guarding, rebound, rigidity - Extremities Exam Extremities exam: Present: normal inspection, full ROM. Absent: tenderness, pedal edema - Back Exam Back exam: Present: normal inspection, full ROM. Absent: tenderness - Neurological Exam Neurological exam: Present: alert, oriented X3 - Psychiatric Psychiatric exam: Present: normal affect, normal mood - Skin Skin exam: Present: warm, dry, intact, normal color Course Course Narrative: Basic labs are ordered as well as an EKG. On and is negative. No signs of acute ischemia on EKG. She did have some T-wave inversions however these were present on her previous EKG. Patient got complete relief with 3 nitroglycerin while here in the emergency department. She has a significant cardiac history. We will admit to the hospital for further cardiac evaluation. She is agreeable With this plan. Vital Signs Temperature 97.9 F 05/24/18 15:41 Pulse Rate 86 05/24/18 15:41 Respiratory Rate 15 05/24/18 15:41 Blood Pressure 111/66 05/24/18 15:41 O2 Sat by Pulse Oximetry 93 05/24/18 15:41 Temperature 97.9 F 05/24/18 15:41 Pulse Rate 92 05/24/18 16:05 Respiratory Rate 14 05/24/18 16:25 Blood Pressure 103/72 05/24/18 16:25 O2 Sat by Pulse Oximetry 97 05/24/18 16:25 Oxygen Delivery Oxygen Delivery Nasal Cannula Medical Decision Making - Medical Records Medical records reviewed: Yes I reviewed the patient's medical records. - Lab Data Lab results reviewed: Yes I reviewed the patient's lab results. Result diagrams: 05/24/18 15:27 05/24/18 15:27 Lab Results 05/24/18 05/24/18 05/24/18 Range/Units 15:27 15:27 15:27 WBC 7.9 (4.3-11.1) K/mcL RBC 4.50 (3.82-4.97) M/mcL Hgb 13.8 (11.5-15.4) g/dL Hct 41.5 (35.3-44.9) % MCV 92.2 (83.0-100.0) fL MCH 30.7 (28.0-33.3) pg MCHC 33.3 (31.6-35.5) g/dL RDW 13.9 (11.5-14.5) % Plt Count 264 (140-400) K/mcL MPV 10.2 (9.4-12.4) fL Immature Gran % 0.4 (0-4) % Seg Neutrophils % 62.3 % Lymphocytes % 26.4 % Monocytes % 7.9 % Eosinophils % 2.5 % Basophils % 0.5 % Neutrophils # 4.9 (1.6-8.9) K/mcL Lymphocytes # 2.1 (0.6-4.6) K/mcL Monocytes # 0.6 (0.0-1.3) K/mcL Eosinophils # 0.2 (0.0-0.6) K/mcL Basophils # 0.0 (0.0-0.2) K/mcL PT 11.3 (9.4-12.1) Seconds INR 1.0 APTT 30.1 (26.0-36.0) Seconds Sodium 135 L (136-145) mEq/L Potassium 4.0 (3.5-5.1) mEq/L Chloride 102 (98-107) mEq/L Carbon Dioxide 27 (23-29) mEq/L BUN 18 (8-23) mg/dL Creatinine 0.83 (0.60-1.20) mg/dL Est GFR ( Amer) > 60 (> 60) Est GFR (Non-Af Amer) > 60 (> 60) BUN/Creatinine Ratio 22 (6-26) Glucose 128 H (70-105) mg/dL Calculated Osmolality 284 (280-300) Calcium 9.7 (8.6-10.3) mg/dL Troponin I < 0.03 (< 0.04) ng/mL - Radiology Data Radiology results reviewed: Yes I reviewed the patient's radiology results. Chest X-Ray 05/24/18 15:29 IMPRESSION: No acute cardiopulmonary disease. D/ / Jose Juan Manzo MD / Jose Juan Manzo MD Interpreting Provider: Jose Juan Manzo MD - EKG Data EKG #1 EKG attestation: Yes I reviewed and interpreted this EKG. EKG results narrative: Normal sinus rhythm at a rate of 79. OH interval is 184. QRS duration is 82. QTC is 460. QTC is 28. No signs of acute ischemia. Patient does have T-wave inversions in leads 3 as well as V3 and V4 V5 and V6. These were present on previous EKG dated 10/16/2012.
[2018-05-24] MEDS ORDERED: Aspirin 81 MG TAB.CHEW ONE (15:33)
[2018-05-24] MEDS: Nitroglycerin 0.4 MG TAB.SUBL SL ONE ×3 (15:40→16:03)
[2018-05-24 15:44] LABS: Basophils % 0.5 %; Eosinophils # 0.2 K/mcL (0.0-0.6); Eosinophils % 2.5 %; Hematocrit 41.5 % (35.3-44.9); Hemoglobin 13.8 g/dL (11.5-15.4); Immature Granulocytes % 0.4 % (0-4); Lymphocytes # 2.1 K/mcL (0.6-4.6); Lymphocytes % 26.4 %; Mean Corpuscular HGB Conc 33.3 g/dL (31.6-35.5); Mean Corpuscular Hemoglobin 30.7 pg (28.0-33.3); Mean Corpuscular Volume 92.2 fL (83.0-100.0); Mean Platelet Volume 10.2 fL (9.4-12.4); Monocytes # 0.6 K/mcL (0.0-1.3); Monocytes % 7.9 %; Neutrophils # 4.9 K/mcL (1.6-8.9); Platelet Count 264 K/mcL (140-400); Red Cell Distribution Width 13.9 % (11.5-14.5); Segmented Neutrophils % 62.3 %
[2018-05-24 15:56] LABS: Prothrombin Time 11.3 Seconds (9.4-12.1)
[2018-05-24 15:59] LABS: Activated Partial Thrombo Time 30.1 Seconds (26.0-36.0)
[2018-05-24 16:05] LABS: BUN/Creatinine Ratio 22 (6-26); Blood Urea Nitrogen 18 mg/dL (8-23); Calcium 9.7 mg/dL (8.6-10.3); Carbon Dioxide 27 mEq/L (23-29); Chloride 102 mEq/L (98-107); Glucose 128 mg/dL (70-105); Osmolality,Calculated 284 (280-300); Sodium 135 mEq/L (136-145); Troponin I < 0.03 ng/mL (< 0.04); eGFR For Non-African Americans > 60 (> 60)
--- NOTE | 2018-05-24 16:39 | Emergency Department Note ---
Disposition Clinical Impression: ACS (acute coronary syndrome) Disposition: Admitted As Inpatient Forms: ED Satisfaction Letter General Adult HPI - General Chief complaint: ED Chest Pain Stated complaint: CP Time Seen by Provider: 05/24/18 15:29 Source: patient, family Mode of arrival: ambulatory Limitations: no limitations - History of Present Illness HPI Narrative: Attestation note I examined this patient and my medical decision-making was reviewed with the Resident Physician/EMERGENCY SERVICE RESTORER/PA. I agree with the documented findings, disposition and treatment plan as described except to the extent set forth below Patient seen with emergency medicine resident Isabella Dawn, please see copy of his note for details of this patient encounter Briefly: 62-year-old female history of recent triple vessel bypass done at [facility] presents emergency Department with chest discomfort. EKG shows no acute ischemic changes when compared to an old EKG. Patient will undergo troponin chest x-ray screening labs aspirin. Patient will be admitted for ACS rule out. Providing 30 minutes critical care service for this patient. Disposition pending. Pain Scale: 0 - Related Data Home Medications Medication Instructions Recorded Confirmed Aspirin Enteric Coated [Aspirin EC] 81 mg PO DAILY 10/12/17 10/12/17 Dulaglutide [Trulicity] 0.75 mg SQ TU@1200 10/12/17 10/12/17 Escitalopram [Lexapro] 20 mg PO DAILY 10/12/17 10/12/17 Glimepiride [Amaryl] 4 mg PO BID 10/12/17 10/12/17 Insulin Glargine,Hum.rec.anlog 28 unit SQ 1200 10/12/17 10/12/17 [Basaglar Oliikpen U-100] Levothyroxine [Synthroid] 25 mcg PO 0630 10/12/17 10/12/17 Pantoprazole Sodium [Protonix] 40 mg PO DAILY PRN 10/12/17 10/12/17 Simvastatin [Zocor] 10 mg PO HS 10/12/17 10/12/17 clonazePAM [Klonopin] 1 mg PO BID 10/12/17 10/12/17 Previous Rx's Medication Instructions Recorded Metoprolol [Lopressor] 25 mg PO BID #60 tablet 10/21/17 OxyCODONE/APAP 5/325 [Percocet 1 each PO Q4HR PRN 7 Days #42 10/21/17 5/325 MG] tablet Oxycodone HCl/Acetaminophen 1 each PO Q4H 7 Days #42 tablet 10/21/17 [Percocet 5-325 mg Tablet] Allergies Allergy/AdvReac Type Severity Reaction Status Date / Time morphine Allergy Anaphylaxis Verified 10/12/17 14:36 Past Medical History - Past Medical History Medical history: Reports: CHF, coronary artery disease, diabetes, myocardial infarction, thyroid disease Surgical history: Reports: cholecystectomy, hysterectomy, thyroidectomy, other Psychiatric history: Reports: anxiety WOOD ROOM SUPERVISOR history: Reports: no WOOD ROOM SUPERVISOR history - Social History Smoking Status: Never smoker Smokeless Tobacco Status: No Alcohol use: Reports: none Drug use: Reports: none Physical Exam - General Limitations: no limitations General appearance: alert Course Vital Signs Temperature 97.9 F 05/24/18 15:41 Pulse Rate 86 05/24/18 15:41 Respiratory Rate 15 05/24/18 15:41 Blood Pressure 111/66 05/24/18 15:41 O2 Sat by Pulse Oximetry 93 05/24/18 15:41 Temperature 97.9 F 05/24/18 15:41 Pulse Rate 92 05/24/18 16:05 Respiratory Rate 14 05/24/18 16:25 Blood Pressure 103/72 05/24/18 16:25 O2 Sat by Pulse Oximetry 97 05/24/18 16:25 Oxygen Delivery Oxygen Delivery Nasal Cannula Medical Decision Making - Lab Data Result diagrams: 05/24/18 15:27 05/24/18 15:27 Lab Results 05/24/18 05/24/18 05/24/18 Range/Units 15:27 15:27 15:27 WBC 7.9 (4.3-11.1) K/mcL RBC 4.50 (3.82-4.97) M/mcL Hgb 13.8 (11.5-15.4) g/dL Hct 41.5 (35.3-44.9) % MCV 92.2 (83.0-100.0) fL MCH 30.7 (28.0-33.3) pg MCHC 33.3 (31.6-35.5) g/dL RDW 13.9 (11.5-14.5) % Plt Count 264 (140-400) K/mcL MPV 10.2 (9.4-12.4) fL Immature Gran % 0.4 (0-4) % Seg Neutrophils % 62.3 % Lymphocytes % 26.4 % Monocytes % 7.9 % Eosinophils % 2.5 % Basophils % 0.5 % Neutrophils # 4.9 (1.6-8.9) K/mcL Lymphocytes # 2.1 (0.6-4.6) K/mcL Monocytes # 0.6 (0.0-1.3) K/mcL Eosinophils # 0.2 (0.0-0.6) K/mcL Basophils # 0.0 (0.0-0.2) K/mcL PT 11.3 (9.4-12.1) Seconds INR 1.0 APTT 30.1 (26.0-36.0) Seconds Sodium 135 L (136-145) mEq/L Potassium 4.0 (3.5-5.1) mEq/L Chloride 102 (98-107) mEq/L Carbon Dioxide 27 (23-29) mEq/L BUN 18 (8-23) mg/dL Creatinine 0.83 (0.60-1.20) mg/dL Est GFR ( Amer) > 60 (> 60) Est GFR (Non-Af Amer) > 60 (> 60) BUN/Creatinine Ratio 22 (6-26) Glucose 128 H (70-105) mg/dL Calculated Osmolality 284 (280-300) Calcium 9.7 (8.6-10.3) mg/dL Troponin I < 0.03 (< 0.04) ng/mL
[2018-05-24] MEDS ORDERED: Naloxone 0.4 MG/ML INJ IVP PRN (18:07)
[2018-05-24] MEDS ORDERED: D5% in Water 1,000 ML IVC PRN (18:12)
[2018-05-24] MEDS ORDERED: *HR* Dextrose 50 % in Water (Syg) 50 ML SYRINGE IVP PRN (18:12)
[2018-05-24] MEDS ORDERED: Dextrose Gel 15 GM/37.5 ML TUBE PO PRN ×2 (18:12)
--- NOTE | 2018-05-24 18:22 | Internal Med History&Physical ---
Date of Encounter: 05/24/18 Time of Encounter: 17:40 Internal Medicine - H&P: HPI Chief complaint: Chest Pain Admitted From: Home Plans for Post Hospital Care: Home History of present illness: Ms. Gonzalez is a 62 year old female with past medical history significant for CAD with stent placement 15-16 years ago and CABG at [place] 10/2017, Diabetes, Hypothyroidism, GERD, Anxiety, and Depression who presents for 10/10 constant sharp midsternal chest pain without radiation starting today at 1230 while folding laundry. Pain was associated with shortness of breath. No nausea, vomiting, or diaphoresis. No alleviating or exacerbating factors. Took nitro x2 at home and received nitro and aspirin in ER. After receiving medication she states she is now completely pain free and no longer short of breath. ER reported EKG sinus rhythm with no signs of acute ischemia. Most recent follow up with [facility] was last week on 05/16/2018. Checks blood sugars at home twice a day and states they have been averaging 120. Past Med Surg Social Fam HX - Past Medical History Medical history: CHF, coronary artery disease, diabetes, myocardial infarction, thyroid disease Psychiatric history: anxiety, depression - Past Surgical History Surgical History: cholecystectomy, coronary bypass (CABG), hysterectomy, thyroidectomy, other Additional surgical history: stent placement - Social History Smoking Status: Never smoker Smokeless Tobacco Status: No Alcohol use: none Drug use: none - Family History Mother Hx Family Cardiac Disorders: Yes Father Hx Family Cancer: Yes Hx Family Endocrine Disorder: Yes Internal Medicine - H&P: Meds Aspirin Enteric Coated [Aspirin EC] 81 mg PO DAILY 10/12/17 [History] Dulaglutide [Trulicity] 0.75 mg SQ TU@1200 10/12/17 [History] Escitalopram [Lexapro] 20 mg PO DAILY 10/12/17 [History] Glimepiride [Amaryl] 4 mg PO BID 10/12/17 [History] Insulin Glargine,Hum.rec.anlog [Basaglar Kwikpen U-100] 28 unit SQ 1200 [History] Levothyroxine [Synthroid] 25 mcg PO 0630 10/12/17 [History] Pantoprazole Sodium [Protonix] 40 mg PO DAILY PRN 10/12/17 [History] Simvastatin [Zocor] 10 mg PO HS 10/12/17 [History] clonazePAM [Klonopin] 1 mg PO BID 10/12/17 [History] Metoprolol [Lopressor] 25 mg PO BID #60 tablet 10/21/17 [Rx] OxyCODONE/APAP 5/325 [Percocet 5/325 MG] 1 each PO Q4HR PRN 7 Days #42 tablet [Rx] Oxycodone HCl/Acetaminophen [Percocet 5-325 mg Tablet] 1 each PO Q4H 7 Days #42 tablet 10/21/17 [Rx] 3 Allergy/AdvReac Type Severity Reaction Status Date / Time morphine Allergy Anaphylaxis Verified 10/12/17 14:36 All Systems PM: A 10-system review of systems was performed and is negative for pertinent findings except as documented above in the HPI. - Constitutional Vitals: Temp Pulse Resp BP Pulse Ox 97.9 F 92 14 103/72 97 05/24/18 15:41 05/24/18 16:05 05/24/18 16:25 05/24/18 16:25 05/24/18 16:25 Exam: General: Alert and oriented. Skin:Normal color, no rash. Dry and intact incision scar noted from CABG 2017. HEENT:EOM, pupils equal, round and reactive. Cardiovascular:Heart sounds distant. Normal S1 & S2, no rubs, murmurs or gallops. No JVD. Pulse regular. Lungs:Normal breath sounds, no wheezes or crackles. Abdomen:Soft, non-tender, no rigidity. Extremities:No deformity, no edema or tenderness, no joint swelling or clubbing. Neurological:Normal cognition and motor skills. Pulses:Carotid and radial pulses normal +2. Rest of the physical exam is non contributory. Internal Med - H&P Results - Labs CBC & Chem 7: 05/24/18 15:27 05/24/18 15:27 - Assessment and plan (1) Chest pain Current Visit: No Status: Acute Assessment and plan: Continuous gambling monitor. Initial troponin in ER negative, serial troponins ordered. Cardiology consulted for further recommendations as they are currently following patient post CABG 10/2017. Cardiac Diet. Qualifiers: Chest pain type: unspecified Qualified Code(s): R07.9 - Chest pain, unspecified (2) Diabetes mellitus Current Visit: No Status: Chronic Assessment and plan: Diabetic diet. Accucheck ACHS. Hold home medications. Start sliding scale insulin. Qualifiers: Diabetes mellitus type: type 2 Diabetes mellitus sales account leader insulin use: with sales account leader use Diabetes mellitus complication status: without complication Qualified Code(s): E11.9 - Type 2 diabetes mellitus without complications; Z79.4 - keno terminal operator (current) use of insulin - Time Spent With Patient Total time spent is greater than 50% in coordination of care (as documented) at patient's floor/unit and/or counseling patient:
[2018-05-24] MEDS ORDERED: Insulin LISPRO 300 UNITS/3 ML VIAL SQ SCH (21:00)
[2018-05-25 03:57] LABS: Basophils % 0.4 %; Eosinophils # 0.2 K/mcL (0.0-0.6); Eosinophils % 3.1 %; Hematocrit 40.5 % (35.3-44.9); Hemoglobin 13.7 g/dL (11.5-15.4); Immature Granulocytes % 0.3 % (0-4); Lymphocytes # 2.4 K/mcL (0.6-4.6); Mean Corpuscular HGB Conc 33.8 g/dL (31.6-35.5); Mean Corpuscular Hemoglobin 30.9 pg (28.0-33.3); Mean Corpuscular Volume 91.4 fL (83.0-100.0); Mean Platelet Volume 10.2 fL (9.4-12.4); Monocytes # 0.6 K/mcL (0.0-1.3); Monocytes % 9.1 %; Neutrophils # 3.4 K/mcL (1.6-8.9); Platelet Count 233 K/mcL (140-400); Red Blood Count 4.43 M/mcL (3.82-4.97); Red Cell Distribution Width 13.8 % (11.5-14.5); Segmented Neutrophils % 51.1 %
[2018-05-25 04:16] LABS: BUN/Creatinine Ratio 25 (6-26); Blood Urea Nitrogen 17 mg/dL (8-23); Calcium 9.6 mg/dL (8.6-10.3); Carbon Dioxide 25 mEq/L (23-29); Chloride 105 mEq/L (98-107); Glucose 127 mg/dL (70-105); Osmolality,Calculated 289 (280-300); Potassium 3.8 mEq/L (3.5-5.1); Sodium 138 mEq/L (136-145); eGFR For Non-African Americans > 60 (> 60)
[2018-05-25] MEDS ORDERED: *HR* Enoxaparin 30 MG/0.3 ML SYRINGE SQ SCH (06:00)
[2018-05-25] MEDS: Insulin LISPRO 300 UNITS/3 ML VIAL SQ SCH ×2 (08:36→12:34)
--- NOTE | 2018-05-25 08:54 | Cardiology Consult Note ---
<Omari Vivas - Last Filed: 05/25/18 09:36> Date of Encounter: 05/25/18 Time of Encounter: 08:50 Assessment and Plan (1) Chest pain Status: Acute Per Cardiology: Atypical symptoms. Reproducible upon palpation today. Appears more muscular skeletal in nature. Troponins negative 3. Has outpatient echo pending-- now pending as inpatient. Assuming no significant findings on echo, cardiology will sign off, follow-up in outpatient setting. No further ischemic evaluation warranted at this time. Patient verbalized understanding and agreed with plan. Discussed and reviewed with Dr. Knight. Recommend resuming home medications -- will resume aspirin, beta herson and statin. Qualifiers: Chest pain type: unspecified Qualified Code(s): R07.9 - Chest pain, unspecified (2) CAD (coronary artery disease) Status: Chronic Per Cardiology: Left heart catheterization October 2017: Impressions: There is severe three vessel coronary artery disease. Occluded Mid RCA receives collaterals from the LCA Severe Proximal LAD Severe distal CIRC Occluded OM1 Recommendations: Suggest patient have Elective coronary artery bypass surgery. CABG Vs Complex PCI CT surgery consult Underwent CABG x [address] Raphael. Qualifiers: Coronary Disease-Associated Artery/Lesion type: [place] artery [place] vs. transplanted heart: [place] heart Associated angina: without angina Qualified Code(s): I25.10 - Atherosclerotic heart disease of [place] coronary artery without angina pectoris Discussion w patient/family: The assessment and plan as outlined above was discussed with the patient who expressed understanding and agreement. All questions were answered. Thank you for involving us in the care of your patient. Please call with any questions. History of Present Illness Consult date: 05/25/18 Requesting physician: Arnav Bundy Consult reason: CP Chief complaint: CP History of present illness: Ms. Gonzalez is a 62 year old female with a relevant past medical history of CAD with CABG times 10/06/[address] Raphael, DM 2, hypertension, TRE, GERD, hypothyroidism. History of moderate mitral regurgitation on echo. Last seen by Dr. Bates with cardiology last week for preoperative evaluation for pending tooth extraction and appears to have Holter and echo pending for evaluation and dizziness symptoms. Cardiology consult for chest pain evaluation. Patient reports since bypass surgery has experienced right-sided chest discomfort with movement and position changes. She reports yesterday doing laundry and carrying heavy laundry basket and developed right-sided midsternal sharp stabbing pain that lasts a few hours and eventually subsided. She reports taking 2 sublingual nitroglycerin pills with no relief. Currently chest pain-free. Symptoms reproducible today upon exam area she reports prior to bypass surgery symptoms she experienced were mid epigastric chest burning/ indigestion-like symptoms that she has not been experiencing now. She denies any dizziness, syncope, falls. Denies any palpitations. Denies any active bleeding or blood loss. Denies any other concerns or complaints. Past Med Surg Social Fam HX - Past Medical History Attestation: Yes The following information was validated with the patient. Source: patient, old records reviewed Medical history: CHF, coronary artery disease, diabetes, myocardial infarction, thyroid disease Psychiatric history: anxiety, depression - Past Surgical History Surgical History: cholecystectomy, coronary bypass (CABG), hysterectomy, thyroidectomy, other Additional surgical history: stent placement - Social History Smoking Status: Never smoker Smokeless Tobacco Status: No Alcohol use: none Drug use: none - Family History Mother Hx Family Cardiac Disorders: Yes Father Hx Family Cancer: Yes Hx Family Endocrine Disorder: Yes Medications and Allergies Aspirin Enteric Coated [Aspirin EC] 81 mg PO DAILY 10/12/17 [History] Dulaglutide [Trulicity] 0.75 mg SQ TU@1200 10/12/17 [History] Escitalopram [Lexapro] 20 mg PO DAILY 10/12/17 [History] Glimepiride [Amaryl] 4 mg PO BID 10/12/17 [History] Levothyroxine [Synthroid] 25 mcg PO QAM 10/12/17 [History] Pantoprazole Sodium [Protonix] 40 mg PO DAILY 10/12/17 [History] Simvastatin [Zocor] 10 mg PO HS 10/12/17 [History] clonazePAM [Klonopin] 1 mg PO BID PRN 10/12/17 [History] Metoprolol [Lopressor] 25 mg PO QAM 05/24/18 [History] Trazodone HCl 100 mg PO HS PRN 05/24/18 [History] 3 Allergy/AdvReac Type Severity Reaction Status Date / Time morphine Allergy Anaphylaxis Verified 05/24/18 21:25 All Systems Review: The remainder of the systems were reviewed and are negative - Cardiovascular Cardiovascular: as per HPI, chest pain at rest Physical Examination Vital Signs, Last 4 Hours Temp Pulse Resp BP Pulse Ox 05/25/18 06:49 97.6 F 77 16 98/61 91 05/25/18 05:02 97.5 F L 73 16 104/62 96 General: Conversant, No Apparent Distress HEENT: Atraumatic, Normocephaly, Mucus Membranes Moist Neck: No JVD, Normal carotid pulses Cardiac: Reg Rate and Rhythm, Normal S1 and S2, No Murmur Lungs: Normal Breath Sounds, No Wheeze, Rales, Rhonchi Neuro: Alert and responsive, No focal deficits noted Abdomen: Soft, Non-Tender Skin: No rashes noted on visualized skin Musculoskeletal: No Chest Wall Tenderness, Other (R sided mideternal reproducible today with palpation) Extremities: No Clubbing, No Cyanosis, No Edema, Normal Pulses Results 05/25/18 03:27 05/25/18 03:27 Lab Results Laboratory Tests 05/24/18 05/24/18 05/24/18 15:27 15:27 21:31 Hgb Hct INR 1.0 Creatinine Est GFR (Non-Af Amer) Troponin I < 0.03 < 0.03 05/25/18 05/25/18 05/25/18 03:27 03:27 03:27 Hgb 13.7 Hct 40.5 INR Creatinine 0.67 Est GFR (Non-Af Amer) > 60 Troponin I < 0.03 ITS Impressions Chest X-Ray 05/24/18 15:29 IMPRESSION: No acute cardiopulmonary disease. D/ / Jose Juan Manzo MD / Jose Juan Manzo MD Interpreting Provider: Jose Juan Manzo MD Active Medications Dextrose/Water (Dextrose 50% (Syg)) 25 ml IVP AD PRN PRN Reason: Hypoglycemia Stop: 11/23/18 18:13 Enoxaparin Sodium (Lovenox) 30 mg SQ 0600 JUAN PRN Reason: Protocol Stop: 11/24/18 06:01 Last Admin: 05/25/18 05:46 Dose: Not Given Glucagon (Glucagen) 1 mg IM ONCE PRN PRN Reason: Hypoglycemia Stop: 11/23/18 18:13 Glucose (Gluctose) 15 gm PO ONCE PRN PRN Reason: Hypoglycemia Stop: 11/23/18 18:13 Glucose (Gluctose) 30 gm PO ONCE PRN PRN Reason: Hypoglycemia Stop: 11/23/18 18:13 Dextrose (Dextrose 5%) 1,000 mls @ 100 mls/hr IVC .Q10H PRN PRN Reason: HYPOGLYCEMIA Stop: 11/23/18 18:13 Insulin Human Lispro (Humalog) 0 units SQ HS JUAN PRN Reason: Protocol Stop: 11/23/18 21:01 Last Admin: 05/24/18 20:03 Dose: Not Given Insulin Human Lispro (Humalog) 0 units SQ TIDAC JUAN PRN Reason: Protocol Stop: 11/24/18 07:31 Last Admin: 05/25/18 08:36 Dose: Not Given Naloxone HCl (Narcan) 0.4 mg IVP Q2MIN PRN PRN Reason: SEE COMMENTS Stop: 11/23/18 18:08 - Imaging and Cardiology Echo: pending Cardiac cath: report reviewed - EKG Interpretation EKG results cardiology: personally reviewed, normal ECG, sinus rhythm, no diagnostic ischemia Consult Discharge Plan - Plan Instructions: Chest Pain (DC) Referrals: Serafin Lindsay DO [Primary Care Provider] - < A - Last Filed: 05/25/18 17:00> Date of Encounter: 05/25/18 - Attending Attestation I have interviewed and examined the patient [id number] and agree with the documentation and plan of care as outlined above. Echo shows normal EF and mild diastolic dysfunction. Continue medical management. Assessment and Plan Discussion w patient/family: The assessment and plan as outlined above was discussed with the patient and/or family members who expressed understanding and agreement. All questions were answered. Thank you for involving us in the care of your patient. Please call with any questions. History of Present Illness History of present illness: Ms. Gonzalez is a 62 year old female All Systems Review: The remainder of the systems were reviewed and are negative Results 05/25/18 03:27 05/25/18 03:27 Lab Results 05/24/18 05/25/18 05/25/18 21:31 03:27 03:27 WBC 6.7 Hgb 13.7 Hct 40.5 Plt Count 233 Sodium Potassium Chloride Carbon Dioxide BUN Creatinine Glucose Calcium Troponin I < 0.03 < 0.03 05/25/18 03:27 WBC Hgb Hct Plt Count Sodium 138 Potassium 3.8 Chloride 105 Carbon Dioxide 25 BUN 17 Creatinine 0.67 Glucose 127 H Calcium 9.6 Troponin I
--- NOTE | 2018-05-25 11:42 | Discharge Summary ---
- NOTES TO OUTPATIENT PROVIDER Notes to Outpatient Provider: Patient with hx of CAD s/p CABG who presented with atypical chest pain, trops and EKG unremarkable, actively folowing with cardiology, ECHO is unremarkable and she is discharged home on her current home meds, no intervention recommended by cardiology Orders not resulted at time of discharge: Pending orders 05/25/18 08:37 EV echocardiogram Routine Date of Encounter: 05/25/18 Time of Encounter: 11:42 - Discharge Diagnosis (1) Chest pain Priority: Primary Status: Acute Qualifiers: Chest pain type: unspecified Qualified Code(s): R07.9 - Chest pain, unspecified (2) Diabetes mellitus Priority: Secondary Status: Chronic Qualifiers: Diabetes mellitus type: type 2 Diabetes mellitus terminal superintendent insulin use: with jail use Diabetes mellitus complication status: without complication Qualified Code(s): E11.9 - Type 2 diabetes mellitus without complications; Z79.4 - care home (current) use of insulin (3) HLD (hyperlipidemia) Priority: Secondary Status: Chronic Qualifiers: Hyperlipidemia type: unspecified Qualified Code(s): E78.5 - Hyperlipidemia , unspecified (4) CAD (coronary artery disease) Priority: Secondary Status: Chronic Qualifiers: Coronary Disease-Associated Artery/Lesion type: [place] artery [place] vs. transplanted heart: [place] heart Associated angina: without angina Qualified Code(s): I25.10 - Atherosclerotic heart disease of [place] coronary artery without angina pectoris Hospital course: Ms. Gonzalez is a 62 year old female Patient with hx of CAD s/p CABG who presented with atypical chest pain, trops and EKG unremarkable, actively folowing with cardiology, ECHO is unremarkable and she is discharged home on her current home meds, no intervention recommended by cardiology Discharge discussed with: patient, nurse - Time Spent with Patient Total time spent providing and/or coordinating discharge services: Less than 30 minutes - Discharge Medications Home Medications: Aspirin Enteric Coated [Aspirin EC] 81 mg PO DAILY 10/12/17 [History] Dulaglutide [Trulicity] 0.75 mg SQ TU@1200 10/12/17 [History] Escitalopram [Lexapro] 20 mg PO DAILY 10/12/17 [History] Glimepiride [Amaryl] 4 mg PO BID 10/12/17 [History] Levothyroxine [Synthroid] 25 mcg PO QAM 02/09/18 [History] Pantoprazole Sodium [Protonix] 40 mg PO DAILY 10/12/17 [History] Simvastatin [Zocor] 10 mg PO HS 10/12/17 [History] clonazePAM [Klonopin] 1 mg PO BID PRN 10/12/17 [History] Metoprolol [Lopressor] 25 mg PO QAM 05/24/18 [History] Trazodone HCl 100 mg PO HS PRN 05/24/18 [History] Allergies/Adverse Reactions: 3 Allergy/AdvReac Type Severity Reaction Status Date / Time morphine Allergy Anaphylaxis Verified 05/24/18 21:25 Date of admission: 05/24/18 17:38 Primary care physician: Serafin Lindsay DO Consults: 05/24/18 18:10 Consult to Cardiology [CONS] Routine Comment: Consulting Provider: [facility] Reason for Consult: Acute chest pain today resolved with nitro. CABG October 2017 at [facility]. Most recent follow up with [facility] 05/16/2018. Call Completed: No Discharging clinician: Branden Richard Anticipated date of discharge: 05/25/18 - Constitutional Vitals: Temp Pulse Resp BP Pulse Ox 97.6 F 77 16 98/61 91 05/25/18 06:49 05/25/18 06:49 05/25/18 06:49 05/25/18 06:49 05/25/18 06:49 General appearance: Present: A&O X 3, pleasant, no acute distress Exam: see below - Head Head exam: Present: atraumatic, normocephalic - Eye Eye exam: Present: PERRL, conjuntiva pink, sclera anicteric Pupils: Present: PERRL - Neck Neck exam general surgery: Present: supple, trachea midline. Absent: lymphadenopathy - Respiratory Respiratory exam: Present: CTAB. Absent: accessory muscle use, rales, rhonchi, wheezes - Cardiovascular Cardiovascular exam: Present: RRR, +S1, +S2. Absent: diastolic murmur, gallop, rubs, systolic murmur - GI/Abdominal GI/Abdominal exam: Present: normal bowel sounds, soft, no peritoneal signs. Absent: distended, tenderness - Extremities Exam Extremities exam: Present: warm, radial pulses palpable and symmetrical. Absent : calf tenderness, cyanotic, pedal edema - Neurological Exam Neurological exam: Present: CN II-XII intact, oriented X3, no focal deficits. Absent: pronater drift, facial droop, speech deficit - Skin Skin exam: Present: dry, intact - Patient Status Disposition: Home, Self-Care Condition: Good Functional capacity at discharge: independent ambulation Overall status at discharge: patient is back to baseline - Discharge Instructions Instructions: Chest Pain (DC) Follow Up With: Serafin Lindsay, [Primary Care Provider] - - Diet and Activity Activity: resume usual activities as tolerated Diet: diabetic diet, low fat, low cholesterol, low salt diet
[2018-05-25 12:08] VITALS: BP 119/79
--- NOTE | 2018-05-25 13:10 | Electrocardiograph Report ---
Test Date: 2018-05-24 Pat Name: Tray Gonzalez Department: [id number] Room: [facility] Gender: F Screen Printing Supervisor: : [id number] Requested By: Kayli Dawn Order Number: [id number] Reading MD: Simone Knight Measurements Intervals [place] Rate: 79 P: 77 [place]: 184 QRS: 33 QRSD: 82 T: -89 QT: 460 QTc: 528 Interpretive Statements Sinus rhythm Left atrial enlargement Borderline T abnormalities, diffuse leads Prolonged QT interval Electronically Signed On 05-25-2018 13:08:30 EDT by Simone Knight
--- NOTE | 2018-05-25 13:11 | Event Note ---
Date of Encounter: 05/25/18 Time of Encounter: 13:10 - Cardiology Event Note Per discussion with Dr. Knight, echo stable with preserved EF. Will s/o.
[2018-05-26] MEDS ORDERED: Aspirin 81 MG TAB.CHEW PO SCH (09:00)
[2018-05-26] MEDS ORDERED: Metoprolol XL (24 HR) Succ 25 MG TAB.ER.24H PO SCH (10:00)
== END 2018-05-25 13:30 | disposition home or self-care (01) ==
LOC: EMEROOARM 15:08 → 3NENU 15:08 → SUATTDRO 17:38 → 3NENU 18:15
PROVIDERS: ADMIT Internal Medicine; ATTEND Internal Medicine

== ENCOUNTER 2020-06-15 20:47 | Observation (INO) ==
[2020-06-15] MEDS ORDERED: GI Cocktail 40 ML EACH PO ONE (22:00)
[2020-06-15] MEDS ORDERED: Aspirin 81 MG TAB.CHEW PO ONE (22:37)
[2020-06-15 23:29] LABS: Basophils % 0.5 %; Eosinophils # 0.1 K/mcL (0.0-0.6); Eosinophils % 1.6 %; Hemoglobin 13.9 g/dL (11.5-15.4); Immature Granulocytes % 0.4 % (0-4); Lymphocytes # 3.1 K/mcL (0.6-4.6); Lymphocytes % 38.6 %; Mean Corpuscular HGB Conc 33.1 g/dL (31.6-35.5); Mean Corpuscular Hemoglobin 31.1 pg (28.0-33.3); Mean Platelet Volume 10.5 fL (9.4-12.4); Monocytes # 0.6 K/mcL (0.0-1.3); Monocytes % 7.3 %; Neutrophils # 4.1 K/mcL (1.6-8.9); Platelet Count 242 K/mcL (140-400); Red Blood Count 4.47 M/mcL (3.82-4.97); Red Cell Distribution Width 12.4 % (11.5-14.5); Segmented Neutrophils % 51.6 %; White Blood Count 7.9 K/mcL (4.3-11.1)
[2020-06-15 23:35] LABS: Activated Partial Thrombo Time 25.4 Seconds (26.0-36.0)
[2020-06-15 23:49] LABS: Alanine Aminotransferase 32 Units/L (7-52); Albumin 4.1 g/dL (3.5-5.7); Albumin/Globulin Ratio 1.4 (1.1-2.2); Alkaline Phosphatase 78 Units/L (34-104); Aspartate Amino Transferase 22 Units/L (13-39); BUN/Creatinine Ratio 18 (6-26); Bilirubin,Direct 0.1 mg/dL (0.0-0.2); Bilirubin,Indirect 0.3 mg/dL (0.0-1.0); Bilirubin,Total 0.4 mg/dL (0.3-1.0); Blood Urea Nitrogen 11 mg/dL (8-23); Calcium 9.7 mg/dL (8.6-10.3); Carbon Dioxide 25 mEq/L (23-29); Chloride 102 mEq/L (98-107); Glucose 202 mg/dL (70-105); Lipase 40 Units/L (11-82); Osmolality,Calculated 287 (280-300); Potassium 3.8 mEq/L (3.5-5.1); Sodium 136 mEq/L (136-145); Total Protein 7.1 g/dL (6.4-8.9); Troponin I < 0.03 ng/mL (< 0.04); eGFR For African Americans > 60 (> 60); eGFR For Non-African Americans > 60 (> 60)
[2020-06-16 00:46] LABS: Adenovirus Not Detected (Not Detect); Bordetella Pertussis Not Detected (Not Detect); Chlamydophila pneumoniae Not Detected (Not Detect); Coronavirus 229E Not Detected (Not Detect); Coronavirus HKU1 Not Detected (Not Detect); Coronavirus NL63 Not Detected (Not Detect); Coronavirus OC43 Not Detected (Not Detect); Human Metapneumovirus Not Detected (Not Detect); Human Rhinovirus/Enterovirus Not Detected (Not Detect); Influenza A Subtype 2009 H1 Not Detected (Not Detect); Influenza B Not Detected (Not Detect); Mycoplasma pneumoniae Not Detected (Not Detect); Parainfluenza Virus 1 Not Detected (Not Detect); Parainfluenza Virus 2 Not Detected (Not Detect); Parainfluenza Virus 3 Not Detected (Not Detect); Parainfluenza Virus 4 Not Detected (Not Detect); Respiratory Syncytial Virus Not Detected (Not Detect); SARS-CoV-2 Not Detected (Not Detect)
[2020-06-16] MEDS ORDERED: *HR* FentaNYL (PF) 100 MCG/2 ML VIAL IVP ONE (00:53)
[2020-06-16] MEDS ORDERED: Naloxone 0.4 MG/ML INJ IVP PRN (02:09)
[2020-06-16] MEDS ORDERED: *HR* Promethazine 25 MG/ML VIAL IVP PRN (03:07)
[2020-06-16] MEDS ORDERED: Promethazine 25 MG in 0.9 % Sodium Chloride 50 ML IVPB ONE (03:07)
[2020-06-16 04:33] LABS: Basophils % 0.6 %; Eosinophils # 0.2 K/mcL (0.0-0.6); Eosinophils % 2.3 %; Hematocrit 41.6 % (35.3-44.9); Hemoglobin 13.9 g/dL (11.5-15.4); Immature Granulocytes % 0.3 % (0-4); Lymphocytes # 2.3 K/mcL (0.6-4.6); Lymphocytes % 35.6 %; Mean Corpuscular HGB Conc 33.4 g/dL (31.6-35.5); Mean Corpuscular Hemoglobin 31.4 pg (28.0-33.3); Mean Corpuscular Volume 93.9 fL (83.0-100.0); Mean Platelet Volume 10.1 fL (9.4-12.4); Monocytes # 0.5 K/mcL (0.0-1.3); Monocytes % 8.2 %; Neutrophils # 3.5 K/mcL (1.6-8.9); Platelet Count 219 K/mcL (140-400); Red Blood Count 4.43 M/mcL (3.82-4.97); Red Cell Distribution Width 12.3 % (11.5-14.5); White Blood Count 6.6 K/mcL (4.3-11.1)
[2020-06-16 04:51] LABS: BUN/Creatinine Ratio 18 (6-26); Blood Urea Nitrogen 11 mg/dL (8-23); Calcium 9.4 mg/dL (8.6-10.3); Carbon Dioxide 27 mEq/L (23-29); Chloride 102 mEq/L (98-107); Glucose 171 mg/dL (70-105); Magnesium 1.8 mg/dL (1.6-2.6); Osmolality,Calculated 285 (280-300); Potassium 3.8 mEq/L (3.5-5.1); Sodium 136 mEq/L (136-145); eGFR For African Americans > 60 (> 60); eGFR For Non-African Americans > 60 (> 60)
[2020-06-16] MEDS ORDERED: Aspirin 81 MG TAB.CHEW PO ONE ×2 (05:09→06:15)
[2020-06-16] MEDS ORDERED: Dextrose Gel 15 GM/37.5 ML TUBE PO PRN ×2 (05:14)
[2020-06-16] MEDS ORDERED: *HR* Dextrose 50 % in Water (Vial) 50 ML VIAL IVP PRN (05:14)
[2020-06-16] MEDS ORDERED: D5% in Water 1,000 ML IVC PRN (05:14)
[2020-06-16] MEDS ORDERED: traZODone 50 MG TABLET PO PRN (06:31)
[2020-06-16 06:41] LABS: Troponin I < 0.03 ng/mL (< 0.04)
[2020-06-16] MEDS: *HR* Heparin 5,000 UNIT/ML VIAL SQ SCH ×2 (07:37→17:33)
[2020-06-16] MEDS: Aspirin Enteric Coated 81 MG Tablet PO SCH (07:37)
[2020-06-16] MEDS: Insulin LISPRO 300 UNITS/3 ML VIAL SQ SCH ×3 (07:38→17:45)
[2020-06-16] MEDS: ALPRAZolam 0.5 MG TABLET PO SCH ×2 (07:38→20:55)
[2020-06-16] MEDS ORDERED: Regadenoson 0.4 MG/5 ML SYRINGE IVP ONE (08:08)
[2020-06-16] MEDS: Levothyroxine 25 MCG TABLET PO SCH (09:42)
[2020-06-17] MEDS: Insulin LISPRO 300 UNITS/3 ML VIAL SQ SCH ×4 (00:49→17:55)
[2020-06-17] MEDS: *HR* Heparin 5,000 UNIT/ML VIAL SQ SCH ×2 (05:39→17:50)
[2020-06-17] MEDS: Levothyroxine 25 MCG TABLET PO SCH (05:43)
[2020-06-17] MEDS: ALPRAZolam 0.5 MG TABLET PO SCH ×2 (08:35→20:21)
[2020-06-17] MEDS: Aspirin Enteric Coated 81 MG Tablet PO SCH (08:36)
[2020-06-17] MEDS ORDERED: ISOVUE-370 200 ML INFUS..BTL ONE (14:22)
[2020-06-17] MEDS ORDERED: 0.9 % Sodium Chloride 2,000 ML ONE (14:22)
[2020-06-17] MEDS ORDERED: *HR* Heparin 10,000 UNIT/10 ML VIAL ONE (14:22)
[2020-06-17] MEDS ORDERED: Heparin 1,000 UNITS/500 mL 500 ML ONE (14:22)
[2020-06-17] MEDS ORDERED: Nitroglycerin 1,000 MCG/10 ML VIAL IV ONE (14:22)
[2020-06-17] MEDS ORDERED: *HR* Midazolam HCl 2 MG/2 ML VIAL ONE (14:32)
[2020-06-17] MEDS ORDERED: *HR* FentaNYL (PF) 100 MCG/2 ML VIAL ONE (14:32)
[2020-06-17] MEDS ORDERED: *HR* OxyCODONE/APAP 5/325 TABLET PO PRN (17:21)
[2020-06-17] MEDS: Ranolazine 500 MG TAB.ER.12H PO SCH (20:21)
[2020-06-17] MEDS ORDERED: Insulin LISPRO 300 UNITS/3 ML VIAL SQ SCH (21:00)
[2020-06-18] MEDS: Levothyroxine 25 MCG TABLET PO SCH (05:56)
[2020-06-18] MEDS: *HR* Heparin 5,000 UNIT/ML VIAL SQ SCH (05:57)
[2020-06-18] MEDS ORDERED: Insulin LISPRO 300 UNITS/3 ML VIAL SQ SCH (07:30)
[2020-06-18 07:36] VITALS: BP 136/78
[2020-06-18] MEDS ORDERED: Isosorbide MONOnitrate (24 HR) 30 MG TAB.ER.24H PO SCH (09:00)
[2020-06-18] MEDS ORDERED: Metoprolol XL (24 HR) Succ 25 MG TAB.ER.24H PO SCH (09:00)
[2020-06-18] MEDS: Aspirin Enteric Coated 81 MG Tablet PO SCH (09:05)
[2020-06-18] MEDS: Ranolazine 500 MG TAB.ER.12H PO SCH (09:05)
[2020-06-18] MEDS: ALPRAZolam 0.5 MG TABLET PO SCH (09:06)
[2020-06-18] MEDS ORDERED: FLU Vac QV 20-21 (6Month+)/PF 0.5 ML SYRINGE IM ONE (09:13)
== END 2020-06-18 11:38 | disposition home or self-care (01) ==
LOC: CDU 20:47 → EMEROOARM 20:47 → CDU 06-16 02:20 → 3ANU 06-16 17:25
PROVIDERS: ADMIT Family Medicine; ATTEND Family Medicine

== ENCOUNTER 2020-07-15 18:09 | Observation (INO) ==
[2020-07-15 19:44] LABS: Basophils # 0.1 K/mcL (0.0-0.2); Basophils % 0.5 %; Eosinophils # 0.3 K/mcL (0.0-0.6); Eosinophils % 3.1 %; Hematocrit 39.8 % (35.3-44.9); Hemoglobin 12.8 g/dL (11.5-15.4); Immature Granulocytes % 0.5 % (0-4); Lymphocytes # 1.7 K/mcL (0.6-4.6); Lymphocytes % 17.1 %; Mean Corpuscular HGB Conc 32.2 g/dL (31.6-35.5); Mean Corpuscular Hemoglobin 30.5 pg (28.0-33.3); Mean Corpuscular Volume 94.8 fL (83.0-100.0); Mean Platelet Volume 10.3 fL (9.4-12.4); Monocytes # 0.7 K/mcL (0.0-1.3); Monocytes % 6.9 %; Neutrophils # 7.3 K/mcL (1.6-8.9); Platelet Count 230 K/mcL (140-400); Red Cell Distribution Width 12.5 % (11.5-14.5); Segmented Neutrophils % 71.9 %; White Blood Count 10.1 K/mcL (4.3-11.1)
[2020-07-15 20:01] LABS: BUN/Creatinine Ratio 16 (6-26); Blood Urea Nitrogen 15 mg/dL (8-23); Calcium 9.6 mg/dL (8.6-10.3); Carbon Dioxide 28 mEq/L (23-29); Chloride 99 mEq/L (98-107); Glucose 231 mg/dL (70-105); Osmolality,Calculated 286 (280-300); Potassium 4.1 mEq/L (3.5-5.1); Sodium 134 mEq/L (136-145); eGFR For African Americans > 60 (> 60); eGFR For Non-African Americans > 60 (> 60)
[2020-07-15 20:06] LABS: Troponin I 0.05 ng/mL (< 0.04)
[2020-07-15] MEDS ORDERED: Naloxone 0.4 MG/ML INJ IVP PRN (21:31)
[2020-07-15] MEDS ORDERED: Acetaminophen 325 MG TABLET PO PRN (21:31)
[2020-07-15] MEDS ORDERED: Ondansetron ODT 4 MG TAB.RAPDIS SL PRN (21:31)
[2020-07-15] MEDS ORDERED: GI Cocktail 40 ML EACH PO ONE (21:33)
[2020-07-15] MEDS ORDERED: Dextrose Gel 15 GM/37.5 ML TUBE PO PRN ×2 (21:41)
[2020-07-15] MEDS ORDERED: D5% in Water 1,000 ML IVC PRN (21:41)
[2020-07-15] MEDS ORDERED: *HR* Dextrose 50 % in Water (Vial) 50 ML VIAL IVP PRN (21:41)
[2020-07-15] MEDS ORDERED: traZODone 50 MG TABLET PO PRN (21:41)
[2020-07-15] MEDS ORDERED: ALPRAZolam 0.5 MG TABLET PO PRN (21:41)
[2020-07-15] MEDS ORDERED: Perflutren Lipid Microsphere 1.3 ML in 0.9 % Sodium Chloride 8.7 ML IVP PRN (21:44)
[2020-07-15] MEDS: Insulin LISPRO 300 UNITS/3 ML VIAL SQ SCH (22:51)
[2020-07-16 02:20] LABS: Basophils % 0.4 %; Eosinophils # 0.3 K/mcL (0.0-0.6); Eosinophils % 3.3 %; Hematocrit 37.8 % (35.3-44.9); Hemoglobin 12.2 g/dL (11.5-15.4); Immature Granulocytes % 0.4 % (0-4); Lymphocytes # 1.8 K/mcL (0.6-4.6); Lymphocytes % 19.8 %; Mean Corpuscular HGB Conc 32.3 g/dL (31.6-35.5); Mean Corpuscular Volume 96.2 fL (83.0-100.0); Mean Platelet Volume 10.2 fL (9.4-12.4); Monocytes # 0.7 K/mcL (0.0-1.3); Monocytes % 8.2 %; Neutrophils # 6.1 K/mcL (1.6-8.9); Platelet Count 185 K/mcL (140-400); Red Blood Count 3.93 M/mcL (3.82-4.97); Red Cell Distribution Width 12.4 % (11.5-14.5); Segmented Neutrophils % 67.9 %; White Blood Count 8.9 K/mcL (4.3-11.1)
[2020-07-16 02:25] LABS: INR 1.1; Prothrombin Time 12.8 Seconds (9.4-12.1)
[2020-07-16 02:39] LABS: BUN/Creatinine Ratio 16 (6-26); Blood Urea Nitrogen 14 mg/dL (8-23); Calcium 9.1 mg/dL (8.6-10.3); Carbon Dioxide 28 mEq/L (23-29); Chloride 102 mEq/L (98-107); Glucose 271 mg/dL (70-105); Magnesium 1.9 mg/dL (1.6-2.6); Osmolality,Calculated 292 (280-300); Phosphorous 3.3 mg/dL (2.7-4.5); Potassium 3.9 mEq/L (3.5-5.1); Sodium 136 mEq/L (136-145); eGFR For African Americans > 60 (> 60); eGFR For Non-African Americans > 60 (> 60)
[2020-07-16] MEDS ORDERED: Levothyroxine 25 MCG TABLET PO SCH (06:30)
[2020-07-16] MEDS ORDERED: *HR* Glimepiride 4 MG TABLET PO SCH (08:00)
[2020-07-16] MEDS: Insulin LISPRO 300 UNITS/3 ML VIAL SQ SCH ×3 (08:41→17:44)
[2020-07-16] MEDS ORDERED: Ranolazine 500 MG TAB.ER.12H PO SCH (09:00)
[2020-07-16] MEDS ORDERED: Aspirin Enteric Coated 81 MG Tablet PO SCH (09:00)
[2020-07-16] MEDS ORDERED: Isosorbide MONOnitrate (24 HR) 30 MG TAB.ER.24H PO SCH (09:30)
[2020-07-16 16:22] VITALS: BP 121/78
== END 2020-07-16 17:53 | disposition home or self-care (01) ==
LOC: 2ANU 18:09 → EMEROOARM 18:09 → SUATTDRO 21:12 → 2ANU 22:10
PROVIDERS: ADMIT Family Medicine; ATTEND Internal Medicine

== ENCOUNTER 2020-10-28 12:26 | Observation (INO) ==
[2020-10-28 13:13] LABS: Basophils % 0.6 %; Eosinophils # 0.1 K/mcL (0.0-0.6); Eosinophils % 1.9 %; Hematocrit 42.7 % (35.3-44.9); Hemoglobin 13.8 g/dL (11.5-15.4); Immature Granulocytes % 0.3 % (0-4); Lymphocytes % 28.1 %; Mean Corpuscular HGB Conc 32.3 g/dL (31.6-35.5); Mean Corpuscular Hemoglobin 30.2 pg (28.0-33.3); Mean Corpuscular Volume 93.4 fL (83.0-100.0); Mean Platelet Volume 10.4 fL (9.4-12.4); Monocytes # 0.5 K/mcL (0.0-1.3); Neutrophils # 4.4 K/mcL (1.6-8.9); Platelet Count 228 K/mcL (140-400); Red Blood Count 4.57 M/mcL (3.82-4.97); Red Cell Distribution Width 12.5 % (11.5-14.5); Segmented Neutrophils % 62.1 %
[2020-10-28 13:47] LABS: BUN/Creatinine Ratio 21 (6-26); Blood Urea Nitrogen 15 mg/dL (8-23); Calcium 9.7 mg/dL (8.6-10.3); Carbon Dioxide 26 mEq/L (23-29); Chloride 103 mEq/L (98-107); Glucose 203 mg/dL (70-105); Osmolality,Calculated 293 (280-300); Sodium 138 mEq/L (136-145); Troponin I < 0.03 ng/mL (< 0.04); eGFR For African Americans > 60 (> 60); eGFR For Non-African Americans > 60 (> 60)
[2020-10-28] MEDS ORDERED: Naloxone 0.4 MG/ML INJ IVP PRN (14:27)
[2020-10-28] MEDS ORDERED: Nitroglycerin 0.4 MG TAB.SUBL SL PRN (14:29)
[2020-10-28] MEDS ORDERED: ALPRAZolam 0.5 MG TABLET PO PRN (14:44)
[2020-10-28] MEDS ORDERED: Dextrose Gel 15 GM/37.5 ML TUBE PO PRN ×2 (14:55)
[2020-10-28] MEDS ORDERED: D5% in Water 1,000 ML IVC PRN (14:55)
[2020-10-28] MEDS ORDERED: *HR* Dextrose 50 % in Water (Vial) 50 ML VIAL IVP PRN (14:55)
[2020-10-28] MEDS ORDERED: traZODone 50 MG TABLET PO PRN (15:23)
[2020-10-28] MEDS ORDERED: *HR* Heparin 5,000 UNIT/ML VIAL IVP PRN ×2 (15:53)
[2020-10-28] MEDS ORDERED: Heparin 25,000UNIT/250ML 1/2NS 25,000 UNIT/250 ML IV.SOLN IVC SCH (16:00)
[2020-10-28] MEDS ORDERED: Perflutren Lipid Microsphere 1.3 ML in 0.9 % Sodium Chloride 8.7 ML IVP PRN (16:27)
[2020-10-28 16:39] LABS: Hematocrit 39.2 % (35.3-44.9); Hemoglobin 12.6 g/dL (11.5-15.4); Mean Corpuscular HGB Conc 32.1 g/dL (31.6-35.5); Mean Corpuscular Hemoglobin 30.5 pg (28.0-33.3); Mean Corpuscular Volume 94.9 fL (83.0-100.0); Mean Platelet Volume 10.2 fL (9.4-12.4); Platelet Count 200 K/mcL (140-400); Red Blood Count 4.13 M/mcL (3.82-4.97); Red Cell Distribution Width 12.3 % (11.5-14.5); White Blood Count 6.7 K/mcL (4.3-11.1)
[2020-10-28 16:48] LABS: INR 1.1; Prothrombin Time 12.4 Seconds (9.4-12.1)
[2020-10-28 16:50] LABS: Heparin anti-factor XA UFH < 0.04 IU/mL (0.30-0.70)
[2020-10-28] MEDS: Insulin LISPRO 300 UNITS/3 ML VIAL SUBQ SCH (17:15)
[2020-10-28] MEDS ORDERED: Insulin LISPRO 300 UNITS/3 ML VIAL SUBQ SCH (21:00)
[2020-10-28] MEDS ORDERED: Nitrofurantoin (BID) 100 MG CAPSULE PO SCH (21:00)
[2020-10-28] MEDS ORDERED: Insulin DETEMIR 100 UNIT/ML X5UNITS SUBQ SCH (21:00)
[2020-10-28] MEDS ORDERED: *HR* Heparin 5,000 UNIT/ML VIAL SQ SCH (22:00)
[2020-10-29 01:50] LABS: Chol/HDL Ratio 4.6 (0-4.9)
[2020-10-29 05:31] LABS: Estimated Average Glucose 269 mg/dl
[2020-10-29] MEDS ORDERED: Levothyroxine 25 MCG TABLET PO SCH (06:30)
[2020-10-29] MEDS: Insulin LISPRO 300 UNITS/3 ML VIAL SUBQ SCH ×2 (07:45→11:45)
[2020-10-29] MEDS ORDERED: Metoprolol XL (24 HR) Succ 50 MG TAB.ER.24H PO SCH (09:00)
[2020-10-29] MEDS ORDERED: Isosorbide MONOnitrate (24 HR) 30 MG TAB.ER.24H PO SCH (09:00)
[2020-10-29] MEDS ORDERED: Metoprolol XL (24 HR) Succ 25 MG TAB.ER.24H PO SCH (09:00)
[2020-10-29] MEDS ORDERED: Aspirin 81 MG TAB.CHEW PO SCH (09:00)
[2020-10-29] MEDS ORDERED: Isosorbide MONOnitrate (24 HR) 30 MG TAB.ER.24H PO ONE (12:00)
[2020-10-29 12:15] VITALS: BP 103/69
[2020-10-30] MEDS ORDERED: Isosorbide MONOnitrate (24 HR) 30 MG TAB.ER.24H PO SCH (09:00)
== END 2020-10-29 14:42 | disposition home or self-care (01) ==
LOC: 3BNU 12:26 → EMEROOARM 12:26 → SUATTDRO 15:06 → 3BNU 16:01
PROVIDERS: ADMIT Internal Medicine; ATTEND Internal Medicine